=== PATIENT | female | born 1940 | race African-American/Black ===

== ENCOUNTER 2016-08-05 14:58 | Inpatient (IN) | payer MEDICARE ==
[~2016-08-05] VITALS: Ht 160 cm; Wt 76.2 kg
[~2016-08-05 14:58] MED LIST: ACETAMINOPHEN325 M1 ORAL; CELEBREX200 MG ORAL; CLINDAMYCIN HC300 MG ORAL; COLACE100 MG ORAL; DILAUDID1 MG/M1 IVP; DONEPEZIL HCL5 M2 ORAL; DRISDOL50000 UNIT ORAL; Dextrose IV; GLIMEPIRIDE1 MG ORAL; GLIPIZIDE XL5 MG ORAL; GLIPIZIDE5 MG ORAL; LEXAPRO10 MG ORAL; LOVENOX10 MG SUBQ; MEGACE ORA400 MG/10 ORAL; METFORMIN HCL500 M1 ORAL; MULTIVITAMINS1 EA14 PO; NKM; OXYCONTIN10 MG ORAL; PROTONIX40 MG ORAL; Potassium Chloride ORAL; SERTRALINE HCL25 MG ORAL; VITAMIN B650 M1 ORAL; Vancomycin Hcl MISC
[2016-08-05] MEDS ORDERED: GLIMEPIRIDE4 MG ORAL (15:21)
[2016-08-05] MEDS ORDERED: PRINIVIL10 MG ORAL (15:21)
[2016-08-05] MEDS ORDERED: VITAMIN D1000 UNI1 ORAL (15:23)
[2016-08-05 15:30] VITALS: BP 160/76
[2016-08-05 15:50] LABS: APPEARANCE,URINE CLOUDY; KETONES,URINE NEGATIVE (NEGATIVE); LEUKOCYTE ESTERASE ,URINE 3+ (NEGATIVE); NITRITE,URINE NEGATIVE (NEGATIVE); PH,URINE 6 (4.5-8.0); PROTEIN,URINE 4+ (NEGATIVE); UROBILINOGEN,URINE NORMAL MG/DL (0.0-1.0)
[2016-08-05 15:54] LABS: MEAN CORPUSCULAR HEMOGLOBIN 23.2 PG (27.0-31.0); MEAN CORPUSCULAR VOLUME 75 FL (80-99); MEAN PLATELET VOLUME 6.7 FL (6.5-10.1); PLATELET COUNT 270 K/UL (150-450); RED BLOOD COUNT 3.56 M/UL (4.20-5.40); WHITE BLOOD COUNT 11.1 K/UL (4.8-10.8)
[2016-08-05] MEDS ORDERED: Silver Sulfadiazine Cream 25gm TOPIC ONE (16:15)
--- NOTE | 2016-08-05 16:18 | Emergency Room Report ---
History of Present Illness General Chief Complaint: General Complaint Source: Family Member Present Illness HPI Patient is a 76-year-old female who presented after increased skin rash. The patient was noted to have a history of wounds to her leg which she had been peeling of skin off of. The patient had had previously been noted to have some infections to the same area. She had no recent fever. She had history of diabetes. She prior history of anemia. Allergies: Coded Allergies: No Known Allergies (Unverified , 03/28/13) Patient History Now: No Reviewed Nursing Documentation: PMH: Agreed, PSxH: Agreed Nursing Documentation-PMH Past Medical History: No History, Except For Hx Cardiac Problems: Yes - Anemia Hx Hypertension: Yes Hx Diabetes: Yes - type 2 Hx Cancer: No Hx Gastrointestinal Problems: No Hx Neurological Problems: Yes - dementia Hx Dementia: Yes Hx Weakness: Yes Review of Systems All Other Systems: negative except mentioned in HPI Physical Exam Vital Signs Date Time Temp Pulse Resp B/P Pulse Ox O2 Delivery O2 Flow Rate FiO2 08/05/16 15:15 98.2 77 15 158/72 98 Room Air Sp02 EP Interpretation: reviewed, normal General Appearance: normal inspection, well appearing, no apparent distress, alert, GCS 15 Head: atraumatic ENT: normal ENT inspection, hearing grossly normal, normal voice Neck: normal inspection, full range of motion, supple, no bony tend Respiratory: normal inspection, lungs clear, normal breath sounds, no respiratory distress, no retraction, no wheezing Cardiovascular #1: regular rate, rhythm, no edema Gastrointestinal: normal inspection, normal bowel sounds, non tender, soft, no guarding, no hernia Genitourinary: no CVA tenderness Musculoskeletal: normal inspection, back normal, normal range of motion Neurologic: normal inspection, alert, responsive, speech normal Psychiatric: judgement/insight normal, depressed affect Skin: other - right plantar ulcer, and left great toe ulceration Medical Decision Making Diagnostic Impression: Primary Impression: UTI (urinary tract infection) Additional Impressions: Diabetes mellitus Skin avulsion Skin ulcer of plantar aspect of foot ER Course The patient noted to have a elevated white blood count as well as evidence of urinary tract infection. The patient's foot appears to have some ulceration to the left great toe as well as to the plantar aspect of the right foot. These were irrigated well and were dressed with Silvadene cream and dressings. The patient started IV antibiotics. Because the patient's complexity of illness and evidence of infection Dr. Ortiz was contacted for inpatient management. Labs Test 08/05/16 15:28 White Blood Count 11.1 K/UL (4.8-10.8) Red Blood Count 3.56 M/UL (4.20-5.40) Hemoglobin 8.2 G/DL (12.0-16.0) Hematocrit 26.6 % (37.0-47.0) Mean Corpuscular Volume 75 FL (80-99) Mean Corpuscular Hemoglobin 23.2 PG (27.0-31.0) Mean Corpuscular Hemoglobin Concent 31.0 G/DL (32.0-36.0) Red Cell Distribution Width 13.0 % (11.6-14.8) Platelet Count 270 K/UL (150-450) Mean Platelet Volume 6.7 FL (6.5-10.1) Neutrophils (%) (Auto) % (45.0-75.0) Lymphocytes (%) (Auto) % (20.0-45.0) Monocytes (%) (Auto) % (1.0-10.0) Eosinophils (%) (Auto) % (0.0-3.0) Basophils (%) (Auto) % (0.0-2.0) Differential Total Cells Counted 100 Neutrophils % (Manual) 91 % (45-75) Lymphocytes % (Manual) 5 % (20-45) Monocytes % (Manual) 2 % (1-10) Eosinophils % (Manual) 1 % (0-3) Basophils % (Manual) 0 % (0-2) Band Neutrophils 1 % (0-8) Platelet Estimate Adequate Platelet Morphology Normal Hypochromasia 2+ Microcytosis 2+ Schistocytes Occasional Urine Color Pale yellow Urine Appearance Cloudy Urine pH 6 (4.5-8.0) Urine Specific Girard 1.015 (1.005-1.035) Urine Protein 4+ (NEGATIVE) Urine Glucose (UA) Negative (NEGATIVE) Urine Ketones Negative (NEGATIVE) Urine Occult Blood 3+ (NEGATIVE) Urine Nitrite Negative (NEGATIVE) Urine Bilirubin Negative (NEGATIVE) Urine Urobilinogen Normal MG/DL (0.0-1.0) Urine Leukocyte Esterase 3+ (NEGATIVE) Urine RBC 10-15 /HPF (0 - 2) Urine WBC Tntc /HPF (0 - 2) Urine Squamous Epithelial Cells Moderate /LPF (NONE/OCC) Urine Bacteria Many /HPF (NONE) Sodium Level 138 mEQ/L (135-145) Potassium Level 4.4 mEQ/L (3.4-4.9) Chloride Level 99 mEQ/L (98-107) Carbon Dioxide Level 22 mEQ/L (20-30) Anion Gap 17 (5-15) Blood Urea Nitrogen 27 mg/dL (7-23) Creatinine 1.3 mg/dL (0.5-0.9) Estimat Glomerular Filtration Rate mL/min (>60) Glucose Level 233 mg/dL (74-106) Calcium Level 9.4 mg/dL (8.6-10.2) Total Bilirubin 0.4 mg/dL (0.0-1.2) Aspartate Amino Transf (AST/SGOT) 17 U/L (5-40) Alanine Aminotransferase (ALT/SGPT) 15 U/L (3-33) Alkaline Phosphatase 93 U/L (35-104) Total Protein 7.8 g/dL (6.6-8.7) Albumin 3.6 g/dL (3.5-5.2) Globulin 4.2 g/dL Albumin/Globulin Ratio 0.8 (1.0-2.7) Urine Opiates Screen Negative (NEGATIVE) Urine Barbiturates Screen Negative (NEGATIVE) Phencyclidine (PCP) Screen Negative (NEGATIVE) Urine Amphetamines Screen Negative (NEGATIVE) Urine Benzodiazepines Screen Negative (NEGATIVE) Urine Cocaine Screen Negative (NEGATIVE) Urine Marijuana (THC) Screen Negative (NEGATIVE) Last Vital Signs Date Time Temp Pulse Resp B/P Pulse Ox O2 Delivery O2 Flow Rate FiO2 08/05/16 15:30 98.4 78 14 160/76 100 Room Air Status: unchanged Disposition: ADMITTED INPATIENT Condition: Serious Referrals: NOT CHOSEN IPA/,REFERRING (PCP) Darrion Chaidez Aug 05, 2016 16:18
[2016-08-05 16:19] LABS: ALANINE AMINOTRANSFERASE 15 U/L (3-33); ALBUMIN/GLOBULIN RATIO 0.8 (1.0-2.7); ANION GAP 17 (5-15); ASPARTATE AMINO TRANSFERASE 17 U/L (5-40); CALCIUM 9.4 mg/dL (8.6-10.2); CARBON DIOXIDE 22 mEQ/L (20-30); CHLORIDE 99 mEQ/L (98-107); CREATININE 1.3 mg/dL (0.5-0.9); HEMOLYSIS 3; POTASSIUM 4.4 mEQ/L (3.4-4.9); SODIUM 138 mEQ/L (135-145); TOTAL PROTEIN 7.8 g/dL (6.6-8.7)
[2016-08-05] MEDS ORDERED: Hydrogen Peroxide 120ml Bottle TOPIC ONE (16:21)
[2016-08-05 16:22] LABS: BACTERIA,URINE MANY /HPF; SQUAMOUS EPITHELIAL CELL,UR MODERATE /LPF (NONE/OCC); WBC,URINE TNTC /HPF (0 - 2)
[2016-08-05 17:24] VITALS: BP 168/67
[2016-08-05 17:30] LABS: BAND NEUTROPHILS % (MANUAL) 1 % (0-8); EOSINOPHILS % (MANUAL) 1 % (0-3); LYMPHOCYTES % (MANUAL) 5 % (20-45); NEUTROPHILS % (MANUAL) 91 % (45-75); TOTAL CELLS COUNTED 100
[2016-08-05 17:31] LABS: HYPOCHROMASIA 2+; MICROCYTES 2+; SCHISTOCYTES OCCASIONAL
[2016-08-05 17:32] LABS: BASOPHILS % (MANUAL) 0 % (0-2); PLATELET ESTIMATE ADEQUATE; PLATELET MORPHOLOGY NORMAL
[2016-08-05 18:45] VITALS: BP 142/78
[2016-08-05] MEDS ORDERED: Haloperidol 5mg/ml Inj IM PRN (19:30)
[2016-08-05 20:00] VITALS: BP 132/60
[2016-08-05] MEDS ORDERED: Donepezil 5mg Tab ORAL SCH (21:00)
[2016-08-05] MEDS: Heparin 5000 units/ml inj SUBQ SCH (23:47)
[2016-08-05] MEDS: NovoLOG Insulin Flexpen SUBQ SCH (23:48)
[2016-08-06] VITALS: BP 126/68
[2016-08-06 04:00] VITALS: BP 137/65
[2016-08-06] MEDS: GlipiZIDE 5mg tab ORAL SCH ×2 (06:01→12:03)
[2016-08-06] MEDS: NovoLOG Insulin Flexpen SUBQ SCH ×4 (06:01→20:51)
[2016-08-06 06:26] LABS: MEAN CORPUSCULAR HEMOGLOBIN 22.6 PG (27.0-31.0); MEAN CORPUSCULAR HGB CONC 29.8 G/DL (32.0-36.0); MEAN CORPUSCULAR VOLUME 76 FL (80-99); MEAN PLATELET VOLUME 7.2 FL (6.5-10.1); PLATELET COUNT 202 K/UL (150-450); RED BLOOD COUNT 2.96 M/UL (4.20-5.40); RED CELL DISTRIBUTION WIDTH 12.5 % (11.6-14.8); WHITE BLOOD COUNT 7.1 K/UL (4.8-10.8)
[2016-08-06 07:01] LABS: HEMOGLOBIN A1C 7.6 % (< 6.0)
[2016-08-06 07:02] LABS: HEMOLYSIS 0; IRON 20 ug/dL (37-145); TOTAL IRON BINDING CAPACITY 158 ug/dL (250-400)
[2016-08-06 07:13] LABS: ALANINE AMINOTRANSFERASE 12 U/L (3-33); ALBUMIN/GLOBULIN RATIO 0.8 (1.0-2.7); ANION GAP 17 (5-15); ASPARTATE AMINO TRANSFERASE 13 U/L (5-40); CARBON DIOXIDE 20 mEQ/L (20-30); CHLORIDE 102 mEQ/L (98-107); CHOLESTEROL 164 mg/dL (< 200); CHOLESTEROL/HDL RATIO 2.8 (3.3-4.4); CREATININE 1.3 mg/dL (0.5-0.9); CRP QUANT 5.3 mg/dL (< 0.5); LDL CHOLESTEROL (CALC.) 92 mg/dL (60-99); MAGNESIUM 2.1 mg/dL (1.7-2.5); PHOSPHORUS 3.8 mg/dL (2.5-4.8); SODIUM 139 mEQ/L (135-145); TOTAL PROTEIN 6.5 g/dL (6.6-8.7)
[2016-08-06 07:16] LABS: FERRITIN 308 ng/mL (13-150)
[2016-08-06 08:00] VITALS: BP 120/71
[2016-08-06] MEDS ORDERED: Docusate 100mg cap ORAL SCH (09:00)
[2016-08-06] MEDS: Heparin 5000 units/ml inj SUBQ SCH ×2 (09:00→20:52)
[2016-08-06] MEDS ORDERED: Lisinopril 10mg tab ORAL SCH (09:00)
[2016-08-06] MEDS: Docusate 100mg cap ORAL SCH ×3 (09:23→18:22)
[2016-08-06] MEDS: metFORMIN 500mg tab ORAL SCH ×2 (09:23→18:00)
[2016-08-06] MEDS: Sertraline 50mg tab ORAL SCH (09:23)
[2016-08-06] MEDS: Lisinopril 10mg tab ORAL SCH ×2 (09:23→18:22)
[2016-08-06] MEDS: Vitamin D 1000 IU Tab ORAL SCH (09:23)
--- NOTE | 2016-08-06 10:24 | History & Physical ---
History and Physical History & Physicial left fot gangeren uti dm dementia sever anemia # [id number] ADINA GUARDADO Aug 06, 2016 10:24
[2016-08-06 10:54] LABS: ANISOCYTOSIS 1+; BAND NEUTROPHILS % (MANUAL) 0 % (0-8); BASOPHILS % (MANUAL) 0 % (0-2); EOSINOPHILS % (MANUAL) 1 % (0-3); HYPOCHROMASIA 4+; LYMPHOCYTES % (MANUAL) 14 % (20-45); NEUTROPHILS % (MANUAL) 75 % (45-75); PLATELET ESTIMATE ADEQUATE; PLATELET MORPHOLOGY NORMAL; TOTAL CELLS COUNTED 100
--- NOTE | 2016-08-06 11:02 | Consultation ---
Consult Note Assessment/Plan A/ 1) Cellulitis left foot 2) Diabetic foot ulcer left hallux - Stage 2 3) Diabetic foot ulcer right foot - Stage 3 4) Diabetic Neuropathy P/ 1) Cont IV abx as ordered 2) Wound care ordered for bilateral feet 3) X-rays ordered for bilateral feet 4) Cont heel protectors 5) Will follow Thank you Felix Sheets DPM Aug 06, 2016 11:02
[2016-08-06 12:00] VITALS: BP 141/65
--- NOTE | 2016-08-06 15:49 | Diagnostic Imaging Report ---
Indication: Pain Comparison: None Findings: 3 views of the right foot were obtained. No acute fracture is identified. Bones are osteopenic. Hammertoes noted. Soft tissues are unremarkable. Impression: No acute findings
--- NOTE | 2016-08-06 15:50 | Diagnostic Imaging Report ---
Indication: Pain Comparison: None Findings: 3 views of the left foot were obtained. No acute fracture is identified. Bones are osteopenic. No traumatic malalignment seen. Mild hammertoes are present. Impression: No acute injury
[2016-08-06 16:00] VITALS: BP 121/73
[2016-08-06] MEDS ORDERED: 1/2 NS 1000ml IV ONE (16:25)
--- NOTE | 2016-08-06 17:46 | Consultation ---
History of Present Illness General Date patient seen: Aug 06, 2016 Chief Complaint: General Complaint Present Illness HPI The patient is a 76-year-old female, who presented to the emergency room with a wound on her leg and foot and was found to have urinary tract infection and severe anemia. She has been started on slow hydration. Patient hemoglobin and RBC found to be critically low and patient is scheduled for PRBC and IV iron. She also started on ceftriaxone for urinary tract infection. Allergies: Coded Allergies: No Known Allergies (Unverified , 03/28/13) Medication History Scheduled Cholecalciferol (Vitamin D3)* (Vitamin D*), 1,000 UNIT ORAL DAILY, (Reported) Docusate Sodium* (Colace*), 100 MG ORAL BID Docusate Sodium* (Colace*), 100 MG ORAL TID Donepezil Hcl* (Donepezil Hcl*), 5 MG ORAL QHS, (Reported) Donepezil Hcl* (Aricept*), 10 MG ORAL QHS Glimepiride* (Glimepiride*), 1 MG ORAL BEFORE BREAKFAST, (Reported) Glipizide* (Glipizide*), 5 MG ORAL BIDBL Hydralazine HCl (Hydralazine HCl), 50 MG ORAL Q8HR Levofloxacin* (Levaquin*), 250 MG ORAL DAILY Lisinopril* (Prinivil*), 10 MG ORAL DAILY, (Reported) Lisinopril* (Lisinopril*), 20 MG ORAL BID Metformin Hcl* (Metformin Hcl*), 500 MG ORAL TWICE A DAY, (Reported) Metoclopramide Hcl* (Reglan*), 5 MG ORAL BEFORE MEALS Multivitamin (Multivitamins), 1 EACH PO DAILY, (Reported) Pantoprazole* (Protonix*), 40 MG ORAL BID Pyridoxine HCl (Pyridoxine HCl), 50 MG ORAL DAILY Sertraline Hcl* (Sertraline Hcl*), 50 MG ORAL DAILY, (Reported) Scheduled PRN Acetaminophen* (Acetaminophen*), 650 MG ORAL Q6H PRN for For Pain Patient History Healthcare decision maker Resuscitation status Full Code Advanced Directive on File Review of Systems Constitutional: Reports: chills, fever, malaise, sweats, weakness Genitourinary: Reports: dysuria, frequency, hematuria, incontinence, pain, urgency Physical Exam General Appearance: confused, mild distress Lines, tubes and drains: peripheral HEENT: normocephalic, atraumatic, PERRL Neck: non-tender, normal alignment Respiratory/Chest: chest wall non-tender, decreased breath sounds, crackles/ rales, rhonchi - bilaterally Breasts: no masses Cardiovascular/Chest: normal peripheral pulses, normal rate, regular rhythm, no JVD Abdomen: normal bowel sounds, non tender, soft, no organomegaly Extremities: normal range of motion, non-tender, normal inspection Skin Exam: normal pigmentation Neurologic: setter out II-XII grossly normal, responsive, disoriented, depressed affect Last 24 Hour Vital Signs Date Time Temp Pulse Resp B/P Pulse Ox O2 Delivery O2 Flow Rate FiO2 08/06/16 12:00 98.6 69 18 141/65 97 Room Air 08/06/16 09:23 120/71 08/06/16 08:00 98.1 66 18 120/71 96 Room Air 08/06/16 04:00 97.8 68 20 137/65 98 Room Air 08/06/16 00:00 98.0 72 18 126/68 99 Room Air 08/05/16 20:00 98.4 69 18 132/60 98 Room Air 08/05/16 18:45 98.1 85 18 142/78 100 Room Air 08/05/16 18:02 98.1 84 16 168/67 100 Room Air Intake and Output 08/05/16 08/06/16 19:00 07:00 Intake Total 170 ml 380 ml Output Total 150 ml 500 ml Balance 20 ml -120 ml Intake Oral 120 ml 30 ml IV Total 50 ml 350 ml Output Urine Total 150 ml 500 ml Laboratory Tests Test 08/06/16 01:00 08/06/16 05:25 Urine Random Sodium 61 mmol/L White Blood Count 7.1 K/UL (4.8-10.8) Red Blood Count 2.96 M/UL (4.20-5.40) L Hemoglobin 6.7 G/DL (12.0-16.0) *L Hematocrit 22.4 % (37.0-47.0) L Mean Corpuscular Volume 76 FL (80-99) L Mean Corpuscular Hemoglobin 22.6 PG (27.0-31.0) L Mean Corpuscular Hemoglobin Concent 29.8 G/DL (32.0-36.0) L Red Cell Distribution Width 12.5 % (11.6-14.8) Platelet Count 202 K/UL (150-450) Mean Platelet Volume 7.2 FL (6.5-10.1) Neutrophils (%) (Auto) % (45.0-75.0) Lymphocytes (%) (Auto) % (20.0-45.0) Monocytes (%) (Auto) % (1.0-10.0) Eosinophils (%) (Auto) % (0.0-3.0) Basophils (%) (Auto) % (0.0-2.0) Differential Total Cells Counted 100 Neutrophils % (Manual) 75 % (45-75) Lymphocytes % (Manual) 14 % (20-45) L Monocytes % (Manual) 10 % (1-10) Eosinophils % (Manual) 1 % (0-3) Basophils % (Manual) 0 % (0-2) Band Neutrophils 0 % (0-8) Platelet Estimate Adequate Platelet Morphology Normal Hypochromasia 4+ Anisocytosis 1+ Sodium Level 139 mEQ/L (135-145) Potassium Level 4.0 mEQ/L (3.4-4.9) Chloride Level 102 mEQ/L (98-107) Carbon Dioxide Level 20 mEQ/L (20-30) Anion Gap 17 (5-15) H Blood Urea Nitrogen 26 mg/dL (7-23) H Creatinine 1.3 mg/dL (0.5-0.9) H Estimat Glomerular Filtration Rate mL/min (>60) Glucose Level 199 mg/dL (74-106) H Hemoglobin A1c 7.6 % (< 6.0) H Uric Acid 7.0 mg/dL (3.0-7.5) Calcium Level 9.0 mg/dL (8.6-10.2) Phosphorus Level 3.8 mg/dL (2.5-4.8) Magnesium Level 2.1 mg/dL (1.7-2.5) Iron Level 20 ug/dL (37-145) L Total Iron Binding Capacity 158 ug/dL (250-400) L Percent Iron Saturation 13 % (15-50) L Unsaturated Iron Binding 138 ug/dL (112-346) Ferritin 308 ng/mL (13-150) H Total Bilirubin 0.3 mg/dL (0.0-1.2) Gamma Glutamyl Transpeptidase 23 U/L (5-36) Aspartate Amino Transf (AST/SGOT) 13 U/L (5-40) Alanine Aminotransferase (ALT/SGPT) 12 U/L (3-33) Alkaline Phosphatase 81 U/L (35-104) Total Creatine Kinase 115 U/L (26-140) C-Reactive Protein, Quantitative 5.3 mg/dL (< 0.5) H Pro-B-Type Natriuretic Peptide 3688 pg/mL (0-450) H Total Protein 6.5 g/dL (6.6-8.7) L Albumin 2.9 g/dL (3.5-5.2) L Globulin 3.6 g/dL Albumin/Globulin Ratio 0.8 (1.0-2.7) L Triglycerides Level 72 mg/dL (< 150) Cholesterol Level 164 mg/dL (< 200) LDL Cholesterol 92 mg/dL (60-99) HDL Cholesterol 58 mg/dL (> 60) Cholesterol/HDL Ratio 2.8 (3.3-4.4) L Vitamin B12 Level 691 pg/mL (211-946) Folate Pending Thyroid Stimulating Hormone (TSH) 3.330 uIU/mL (0.300-4.500) Height (Feet): 5 Height (Inches): 3.00 Weight (Pounds): 168 Medications Current Medications Medications (Trade) Dose Ordered Sig/Nancy Route PRN Reason Start Time Stop Time Status Last Admin Dose Admin Acetaminophen (Tylenol) 650 mg Q6H PRN ORAL For Pain 08/05/16 19:30 09/04/16 19:29 Ceftriaxone Sodium/Dextrose (Rocephin/D5W 50ml) 50 ml @ 100 mls/hr Q24H IVPB 08/06/16 16:30 08/13/16 16:29 Clonidine HCl (Catapres) 0.1 mg Q4H PRN ORAL bp over 170 syst 08/05/16 19:45 09/04/16 19:44 Dextrose (Dextrose 50%) STAT PRN IV Hypoglycemia 08/05/16 20:15 09/04/16 20:14 Docusate Sodium (Colace) 100 mg TID ORAL 08/06/16 09:00 09/05/16 08:59 08/06/16 12:05 Donepezil HCl (Aricept) 10 mg QHS ORAL 08/06/16 21:00 09/05/16 20:59 Glipizide (Glucotrol) 5 mg BIDBL ORAL 08/06/16 06:30 09/05/16 06:29 08/06/16 12:03 Haloperidol Lactate (Haldol) 2 mg Q4H PRN IM Agitation 08/05/16 19:30 09/04/16 19:29 Heparin Sodium (Porcine) (Heparin 5000 units/ml) 5,000 units EVERY 12 HOURS SUBQ 08/05/16 21:00 09/04/16 20:59 08/05/16 23:47 Insulin Aspart (NovoLOG) BEFORE MEALS AND HS SUBQ 08/05/16 21:00 09/04/16 20:59 08/06/16 17:00 Lisinopril (Zestril) 10 mg BID ORAL 08/06/16 09:00 09/05/16 08:59 08/06/16 09:23 Metformin HCl (Glucophage) 500 mg BID ORAL 08/06/16 09:00 09/05/16 08:59 08/06/16 09:23 Pantoprazole (Protonix) 40 mg BID ORAL 08/06/16 09:00 09/05/16 08:59 08/06/16 09:23 Sertraline HCl 50 mg 50 mg DAILY ORAL 08/06/16 09:00 09/05/16 08:59 08/06/16 09:23 Sodium Chloride 1,000 ml @ 50 mls/hr Q20H IV 08/05/16 19:30 09/04/16 19:29 08/05/16 23:46 Vitamin D (Vitamin D) 2,000 intlu DAILY ORAL 08/06/16 09:00 09/05/16 08:59 08/06/16 09:23 Assessment/Plan Status: stable, progressing Assessment/Plan Assessment Urinary tract infection, Left foot gangrene, Dementia, Diabetes mellitus Severe anemia Mild CHF Plan Broad Spectrum Antbx Septic workup Pain management Follow up with Cx report IV hydration JAIRO Cage Aug 06, 2016 17:46
[2016-08-06] MEDS: cefTRIAXone 1 GM in D5W 50 ML IVPB SCH (18:22)
[2016-08-06 20:00] VITALS: BP 177/70
[2016-08-06] MEDS: Donepezil 5mg Tab ORAL SCH (20:50)
--- NOTE | 2016-08-06 21:37 | History and Physical Report ---
DATE OF ADMISSION: 08/05/2016 HISTORY OF PRESENT ILLNESS: The patient is a 76-year-old female who presents to our emergency room with wound on her leg and foot that she has been peeling and also was found to have urinary tract infection and severe anemia. The patient is being admitted with a diagnosis of left foot gangrene, UTI and severe anemia. PAST MEDICAL HISTORY: Significant for diabetes mellitus, dementia, anemia, gastroesophageal reflux disease, and peripheral vascular disease. PHYSICAL EXAMINATION: GENERAL: The patient is forgetful, poor historian. VITAL SIGNS: Temperature 98.1 degrees, pulse rate 66, respiratory rate 18, and blood pressure 120/71. HEENT: Face is pale. Sclerae is not icteric. Head is normocephalic. BREASTS: Atrophic. LUNGS: Clear. HEART: Regular. ABDOMEN: Soft. EXTREMITIES: Scar over the left hip of the previous surgery. Lower extremity on the left side, there is evidence of a blackish coloration and gangrene on the back side of the foot. Please refer to the pictures and did note of the wound care nurse on the record. CENTRAL NERVOUS SYSTEM: The patient moves all extremities. LABORATORY AND DIAGNOSTIC DATA: Laboratory results, the hemoglobin on admission was 8.2, today 6.7 and white BCs 11.1 and today 7.1. The creatinine is 1.3. Glucose 199. Iron panel shows iron deficiency. B12, folate, and TSH normal. IMPRESSION: The patient has urinary tract infection, left foot gangrene, dementia, diabetes mellitus and severe anemia. PLAN: The patient is on antibiotic and is due for podiatry evaluation. Also the patient will receive one unit of blood transfusion, iron supplements, slow hydration, blood sugar control and according to how the patient's condition evolves, we will make appropriate changes in our future management. Mohsen Ortiz M.D. DR: LUDMILA JOB#: [id number] CC:
[2016-08-07] VITALS: BP 137/62
[2016-08-07] MEDS: Metoclopramide 10mg/2ml Inj IVP PRN (00:02)
[2016-08-07 04:00] VITALS: BP 151/69
[2016-08-07] MEDS: NovoLOG Insulin Flexpen SUBQ SCH ×4 (06:03→21:38)
[2016-08-07] MEDS: GlipiZIDE 5mg tab ORAL SCH ×2 (06:04→12:35)
[2016-08-07 07:35] LABS: MEAN CORPUSCULAR HEMOGLOBIN 23.8 PG (27.0-31.0); MEAN CORPUSCULAR HGB CONC 30.3 G/DL (32.0-36.0); MEAN CORPUSCULAR VOLUME 78 FL (80-99); MEAN PLATELET VOLUME 7.4 FL (6.5-10.1); PLATELET COUNT 261 K/UL (150-450); RED BLOOD COUNT 3.85 M/UL (4.20-5.40); RED CELL DISTRIBUTION WIDTH 13.9 % (11.6-14.8); WHITE BLOOD COUNT 10.6 K/UL (4.8-10.8)
[2016-08-07 08:00] VITALS: BP 166/80
[2016-08-07 08:04] LABS: INR 1.1 (0.9-1.1); PROTHROMBIN TIME 10.9 SEC (9.30-11.50)
[2016-08-07 09:00] LABS: ANISOCYTOSIS 1+; BAND NEUTROPHILS % (MANUAL) 0 % (0-8); BASOPHILS % (MANUAL) 0 % (0-2); EOSINOPHILS % (MANUAL) 0 % (0-3); HYPOCHROMASIA 1+; LYMPHOCYTES % (MANUAL) 3 % (20-45); NEUTROPHILS % (MANUAL) 89 % (45-75); PLATELET ESTIMATE ADEQUATE; PLATELET MORPHOLOGY NORMAL; TOTAL CELLS COUNTED 100
[2016-08-07] MEDS: Heparin 5000 units/ml inj SUBQ SCH ×2 (09:00→21:42)
[2016-08-07] MEDS: Sertraline 50mg tab ORAL SCH (09:09)
[2016-08-07] MEDS: Vitamin D 1000 IU Tab ORAL SCH (09:09)
[2016-08-07] MEDS: metFORMIN 500mg tab ORAL SCH ×2 (09:09→17:53)
[2016-08-07] MEDS: Docusate 100mg cap ORAL SCH ×3 (09:09→17:53)
[2016-08-07] MEDS: Lisinopril 10mg tab ORAL SCH ×2 (09:09→17:54)
[2016-08-07 09:19] LABS: ERYTHROCYTE SEDIMENTATION RATE 78 MM/HR (0-30); PATH BLOOD SMEAR/OMC SENT TO PATHOLOGIST
--- NOTE | 2016-08-07 10:38 | General Progress Note ---
Assessment/Plan Status: unchanged Assessment/Plan Status: - urinary tract infection, -left foot gangrene, -dementia, -diabetes mellitus and -severe anemia. Podiatry Impresion: 1) Cellulitis left foot 2) Diabetic foot ulcer left hallux - Stage 2 3) Diabetic foot ulcer right foot - Stage 3 4) Diabetic Neuropathy Plan: Ceftriaxone- Transfused- IV Iron- Fot care- S eval Subjective ROS Limited/Unobtainable: No Constitutional: Reports: malaise, weakness Allergies: Coded Allergies: No Known Allergies (Unverified , 03/28/13) Objective Last 24 Hour Vital Signs Date Time Temp Pulse Resp B/P Pulse Ox O2 Delivery O2 Flow Rate FiO2 08/07/16 09:09 166/80 08/07/16 09:09 166/90 08/07/16 08:00 97.7 71 18 166/80 95 Room Air 08/07/16 04:00 97.7 71 20 151/69 95 Room Air 08/07/16 00:00 97.9 66 20 137/62 96 Room Air 08/06/16 21:33 168/74 08/06/16 20:00 98.1 76 20 177/70 96 Room Air 08/06/16 18:22 121/73 08/06/16 16:00 98.2 94 20 121/73 97 Room Air 08/06/16 12:00 98.6 69 18 141/65 97 Room Air Intake and Output 08/06/16 08/07/16 19:00 07:00 Intake Total 100 ml 350 ml Output Total 875 ml Balance 100 ml -525 ml Intake Oral 100 ml IV Total 350 ml Output Urine Total 875 ml Laboratory Tests 08/07/16 06:10: White Blood Count 10.6, Red Blood Count 3.85L, Hemoglobin 9.2#L, Hematocrit 30.2 #L, Mean Corpuscular Volume 78L, Mean Corpuscular Hemoglobin 23.8L, Mean Corpuscular Hemoglobin Concent 30.3L, Red Cell Distribution Width 13.9, Platelet Count 261, Mean Platelet Volume 7.4, Neutrophils (%) (Auto) , Lymphocytes (%) (Auto) , Monocytes (%) (Auto) , Eosinophils (%) (Auto) , Basophils (%) (Auto) , Differential Total Cells Counted 100, Neutrophils % ( Manual) 89H, Lymphocytes % (Manual) 3L, Monocytes % (Manual) 8, Eosinophils % ( Manual) 0, Basophils % (Manual) 0, Band Neutrophils 0, Platelet Estimate Adequate, Platelet Morphology Normal, Hypochromasia 1+, Anisocytosis 1+, Erythrocyte Sedimentation Rate 78H, Reticulocyte Count [Pending], Prothrombin Time 10.9, Prothromb Time International Ratio 1.1, Activated Partial Thromboplast Time 28, Lactate Dehydrogenase 335H, Carcinoembryonic Antigen 1.8 Height (Feet): 5 Height (Inches): 3.00 Weight (Pounds): 168 General Appearance: no apparent distress Cardiovascular: regular rhythm Respiratory/Chest: lungs clear Abdomen: soft Objective PE otherwise not changed ADINA GUARDADO Aug 07, 2016 10:38
--- NOTE | 2016-08-07 11:34 | Diagnostic Imaging Report ---
Indications: DYSPNEA Technique: Portable AP chest Findings: Comparison: 04/16/2016 Cardiac silhouette remains normal in size. Pulmonary vascular redistribution, bilateral interstitial infiltrates, left pleural effusion have developed. IMPRESSION: Development of mild bilateral congestive change
[2016-08-07 12:00] VITALS: BP 154/79
[2016-08-07] MEDS: HydrALAZINE 10mg Tab ORAL SCH ×2 (14:38→21:44)
--- NOTE | 2016-08-07 15:17 | Podiatric Progress Note ---
Assessment/Plan Patient Tanya Padilla is a 76 year old female who was admitted on Aug 05, 2016 at 16:35 with Problems: Assessment/Plan A/ 1) Cellulitis left foot 2) Diabetic foot ulcer left hallux - Stage 2 3) Diabetic foot ulcer right foot - Stage 3 4) Diabetic Neuropathy P/ 1) Cont IV abx as ordered 2) Cont wound care as ordered for bilateral feet 3) X-rays bilateral feet reviewed. ESR and CRP elevated, Bone scan to evaluate for osteo 4) Cont heel protectors 5) Will follow Subjective Procedure Performed Patient denies pain in feet. Patient is comfortable Allergies: Coded Allergies: No Known Allergies (Unverified , 03/28/13) Objective Exam Last 24 Hour Vital Signs Date Time Temp Pulse Resp B/P Pulse Ox O2 Delivery O2 Flow Rate FiO2 08/07/16 14:38 154/79 08/07/16 12:00 97.0 66 18 154/79 96 Room Air 08/07/16 09:09 166/80 08/07/16 09:09 166/90 08/07/16 08:00 97.7 71 18 166/80 95 Room Air 08/07/16 04:00 97.7 71 20 151/69 95 Room Air 08/07/16 00:00 97.9 66 20 137/62 96 Room Air 08/06/16 21:33 168/74 08/06/16 20:00 98.1 76 20 177/70 96 Room Air 08/06/16 18:22 121/73 08/06/16 16:00 98.2 94 20 121/73 97 Room Air Laboratory Tests Test 08/07/16 06:10 White Blood Count 10.6 K/UL (4.8-10.8) Red Blood Count 3.85 M/UL (4.20-5.40) L Hemoglobin 9.2 G/DL (12.0-16.0) #L Hematocrit 30.2 % (37.0-47.0) #L Mean Corpuscular Volume 78 FL (80-99) L Mean Corpuscular Hemoglobin 23.8 PG (27.0-31.0) L Mean Corpuscular Hemoglobin Concent 30.3 G/DL (32.0-36.0) L Red Cell Distribution Width 13.9 % (11.6-14.8) Platelet Count 261 K/UL (150-450) Mean Platelet Volume 7.4 FL (6.5-10.1) Neutrophils (%) (Auto) % (45.0-75.0) Lymphocytes (%) (Auto) % (20.0-45.0) Monocytes (%) (Auto) % (1.0-10.0) Eosinophils (%) (Auto) % (0.0-3.0) Basophils (%) (Auto) % (0.0-2.0) Differential Total Cells Counted 100 Neutrophils % (Manual) 89 % (45-75) H Lymphocytes % (Manual) 3 % (20-45) L Monocytes % (Manual) 8 % (1-10) Eosinophils % (Manual) 0 % (0-3) Basophils % (Manual) 0 % (0-2) Band Neutrophils 0 % (0-8) Platelet Estimate Adequate Platelet Morphology Normal Hypochromasia 1+ Anisocytosis 1+ Erythrocyte Sedimentation Rate 78 MM/HR (0-30) H Reticulocyte Count 1.0 % (0.0-2.0) Prothrombin Time 10.9 SEC (9.30-11.50) Prothromb Time International Ratio 1.1 (0.9-1.1) Activated Partial Thromboplast Time 28 SEC (23-33) Lactate Dehydrogenase 335 U/L (135-230) H Carcinoembryonic Antigen 1.8 ng/mL Microbiology Date/Time Source Procedure Growth Status 08/05/16 16:45 Blood Blood Culture - Preliminary NO GROWTH AFTER 24 HOURS Resulted 08/05/16 15:28 Urine,Clean Catch Urine Culture - Final Klebsiella Pneumoniae Complete Felix Daniels DPM Aug 07, 2016 15:17
[2016-08-07 16:00] VITALS: BP 124/61
[2016-08-07] MEDS: cefTRIAXone 1 GM in D5W 50 ML IVPB SCH (17:12)
--- NOTE | 2016-08-07 18:31 | Pulmonology Progress Note ---
Assessment/Plan Assessment/Plan Assessment/Plan Status: stable, progressing Assessment/Plan Assessment Urinary tract infection, Left foot gangrene, Dementia, Diabetes mellitus Severe anemia Mild CHF Plan Broad Spectrum Antbx Septic workup Pain management Follow up with Cx report IV hydration gentle Subjective ROS Limited/Unobtainable: Yes Constitutional: Reports: anorexia, fatigue Gastrointestinal/Abdominal: Reports: bloating, nausea Genitourinary: Reports: dysuria, frequency, hematuria, urgency Neurologic: Reports: confusion, weakness Allergies: Coded Allergies: No Known Allergies (Unverified , 03/28/13) Objective Last 24 Hour Vital Signs Date Time Temp Pulse Resp B/P Pulse Ox O2 Delivery O2 Flow Rate FiO2 08/07/16 17:54 124/61 08/07/16 16:00 97.9 62 20 124/61 97 Room Air 08/07/16 14:38 154/79 08/07/16 12:00 97.0 66 18 154/79 96 Room Air 08/07/16 09:09 166/80 08/07/16 09:09 166/90 08/07/16 08:00 97.7 71 18 166/80 95 Room Air 08/07/16 04:00 97.7 71 20 151/69 95 Room Air 08/07/16 00:00 97.9 66 20 137/62 96 Room Air 08/06/16 21:33 168/74 08/06/16 20:00 98.1 76 20 177/70 96 Room Air Intake and Output 08/06/16 08/07/16 19:00 07:00 Intake Total 100 ml 350 ml Output Total 875 ml Balance 100 ml -525 ml Intake Oral 100 ml IV Total 350 ml Output Urine Total 875 ml General Appearance: no acute distress HEENT: normocephalic, atraumatic, anicteric, PERRL Respiratory/Chest: chest wall non-tender, decreased breath sounds, accessory muscle use Breasts: no masses Cardiovascular: normal peripheral pulses, normal rate, regular rhythm, no JVD Abdomen: normal bowel sounds, soft, non tender, no organomegaly Genitourinary: normal external genitalia Extremities: no cyanosis Skin: lesions 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, responsive, disoriented, aphasia Microbiology Date/Time Source Procedure Growth Status 08/05/16 16:45 Blood Blood Culture - Preliminary NO GROWTH AFTER 24 HOURS Resulted 08/05/16 16:30 Blood Blood Culture - Preliminary NO GROWTH AFTER 24 HOURS Resulted 08/05/16 15:28 Urine,Clean Catch Urine Culture - Final Klebsiella Pneumoniae Complete Laboratory Tests 08/07/16 06:10: White Blood Count 10.6, Red Blood Count 3.85L, Hemoglobin 9.2#L, Hematocrit 30.2 #L, Mean Corpuscular Volume 78L, Mean Corpuscular Hemoglobin 23.8L, Mean Corpuscular Hemoglobin Concent 30.3L, Red Cell Distribution Width 13.9, Platelet Count 261, Mean Platelet Volume 7.4, Neutrophils (%) (Auto) , Lymphocytes (%) (Auto) , Monocytes (%) (Auto) , Eosinophils (%) (Auto) , Basophils (%) (Auto) , Differential Total Cells Counted 100, Neutrophils % ( Manual) 89H, Lymphocytes % (Manual) 3L, Monocytes % (Manual) 8, Eosinophils % ( Manual) 0, Basophils % (Manual) 0, Band Neutrophils 0, Platelet Estimate Adequate, Platelet Morphology Normal, Hypochromasia 1+, Anisocytosis 1+, Erythrocyte Sedimentation Rate 78H, Reticulocyte Count 1.0, Prothrombin Time 10.9, Prothromb Time International Ratio 1.1, Activated Partial Thromboplast Time 28, Lactate Dehydrogenase 335H, Carcinoembryonic Antigen 1.8 Current Medications Medications (Trade) Dose Ordered Sig/Nancy Route PRN Reason Start Time Stop Time Status Last Admin Dose Admin Acetaminophen (Tylenol) 650 mg Q6H PRN ORAL For Pain 08/05/16 19:30 09/04/16 19:29 Ceftriaxone Sodium/Dextrose (Rocephin/D5W 50ml) 50 ml @ 100 mls/hr Q24H IVPB 08/06/16 16:30 08/13/16 16:29 08/07/16 17:12 Clonidine HCl (Catapres) 0.1 mg Q4H PRN ORAL bp over 170 syst 08/05/16 19:45 09/04/16 19:44 08/07/16 09:09 Dextrose (Dextrose 50%) STAT PRN IV Hypoglycemia 08/05/16 20:15 09/04/16 20:14 Docusate Sodium (Colace) 100 mg TID ORAL 08/06/16 09:00 09/05/16 08:59 08/07/16 17:53 Donepezil HCl (Aricept) 10 mg QHS ORAL 08/06/16 21:00 09/05/16 20:59 08/06/16 20:50 Glipizide (Glucotrol) 5 mg BIDBL ORAL 08/06/16 06:30 09/05/16 06:29 08/07/16 12:35 Haloperidol Lactate (Haldol) 2 mg Q4H PRN IM Agitation 08/05/16 19:30 09/04/16 19:29 Heparin Sodium (Porcine) (Heparin 5000 units/ml) 5,000 units EVERY 12 HOURS SUBQ 08/05/16 21:00 09/04/16 20:59 08/06/16 20:52 Hydralazine HCl 10 mg 10 mg Q8HR ORAL 08/07/16 14:00 09/06/16 13:59 08/07/16 14:38 Insulin Aspart (NovoLOG) BEFORE MEALS AND HS SUBQ 08/05/16 21:00 09/04/16 20:59 08/07/16 16:25 Iron Sucrose/ Sodium Chloride (Venofer/Sodium Chloride 100ml bag) 105 ml @ 381.818 mls/hr BEDTIME IVPB 08/07/16 21:00 08/16/16 21:17 Lisinopril (Zestril) 20 mg BID ORAL 08/07/16 18:00 09/06/16 17:59 08/07/16 17:54 Metformin HCl (Glucophage) 500 mg BID ORAL 08/06/16 09:00 09/05/16 08:59 08/07/16 17:53 Metoclopramide HCl (Reglan) 5 mg BEFORE MEALS ORAL 08/07/16 12:30 09/06/16 12:29 08/07/16 16:24 Metoclopramide HCl (Reglan) 10 mg Q6H PRN IVP Nausea & Vomiting 08/06/16 23:30 09/05/16 23:29 08/07/16 00:02 Pantoprazole (Protonix) 40 mg BID ORAL 08/06/16 09:00 09/05/16 08:59 08/07/16 17:53 Sertraline HCl 50 mg 50 mg DAILY ORAL 08/06/16 09:00 09/05/16 08:59 08/07/16 09:09 Sodium Chloride 1,000 ml @ 50 mls/hr Q20H IV 08/05/16 19:30 09/04/16 19:29 08/06/16 18:21 Vitamin D (Vitamin D) 2,000 intlu DAILY ORAL 08/06/16 09:00 09/05/16 08:59 08/07/16 09:09 AJIRO DELEON Aug 07, 2016 18:31
[2016-08-07 19:00] VITALS: BP 159/71
--- NOTE | 2016-08-07 21:07 | Consultation ---
DATE OF CONSULTATION: 08/06/2016 CONSULTING PHYSICIAN: Felix Daniels D.P.M. REQUESTING PHYSICIAN: Mohsen Ortiz M.D. REASON FOR CONSULTATION: Diabetic foot ulcer with cellulitis. HISTORY OF PRESENT ILLNESS: The patient is a 76-year-old female, who was admitted to [facility] on 08/05/2016 for urinary tract infection. The patient is confused and altered and is unable to adequately respond to questioning. History was obtained through chart review. PAST MEDICAL HISTORY: Past medical history is significant for diabetes mellitus, dementia, anemia, gastroesophageal reflux disease, and peripheral vascular disease. PAST SURGICAL HISTORY: Unknown. MEDICATIONS: Per SEP. ALLERGIES: She has no known drug allergies. SOCIAL HISTORY: Noncontributory. FAMILY HISTORY: Noncontributory. REVIEW OF SYSTEMS: Difficult to ascertain as the patient does not directly answer questioning. PHYSICAL EXAMINATION: VITAL SIGNS: Temperature is 98.1 degrees, pulse 66, respiration rate is 18, blood pressure is 120/71, and pulse oximetry is 96% on room air. EXTREMITIES: Lower extremity physical exam, vascular, palpable pedal pulses noted bilaterally. Feet are equally warm. There is no edema or cyanosis noted. DERMATOLOGICAL: There is partial-thickness ulceration noted on the left hallux. Areas are erythematous and edematous. There is no malodor noted. There is a small amount of serous drainage from the site. No pain upon palpation. There is also a full-thickness ulceration noted on the plantar aspect of the right foot. No bone or tendon is exposed. The area is dry. Periwound skin is unremarkable. No drainage is noted from the site. Again, no bone or tendon is exposed there. Remaining dermatological exam is unremarkable. NEUROLOGICAL: Protective threshold diminished. Achilles deep tendon reflexes 2+ bilateral. MUSCULOSKELETAL: There is no gross deformities noted. A 4/5 muscle strength is noted anterolateral and posterior muscle groups of bilateral lower extremities. IMAGING: No lower extremity imaging is noted yet. LABORATORY DATA: Glucose is 199. Hemoglobin A1c is 7.6. Albumin is 2.9. C-reactive protein is 5.3. White blood cell count is 7.1, hemoglobin is 6.7, hematocrit of 22.4, and platelet count is 202,000. ASSESSMENT: 1. Cellulitis left foot. 2. Diabetic foot ulcer, left hallux, stage II. 3. Diabetic foot ulcer, right foot, stage III. 4. Diabetic neuropathy. PLAN: 1. Continue IV antibiotics as ordered. 2. Wound care ordered for bilateral feet. 3. X-rays ordered for bilateral feet. 4. Continue heel protectors. 5. We will follow. Thank you for the courtesy of this consultation, Dr. Ortiz. Felix Daniels D.P.M. DR: ANTONINO JOB#: [id number] CC:
[2016-08-07] MEDS: Donepezil 5mg Tab ORAL SCH (21:44)
[2016-08-08 00:15] VITALS: BP 162/69
[2016-08-08 04:16] VITALS: BP 159/94
[2016-08-08] MEDS: GlipiZIDE 5mg tab ORAL SCH ×2 (05:50→12:15)
[2016-08-08] MEDS: HydrALAZINE 10mg Tab ORAL SCH ×3 (05:50→22:00)
[2016-08-08] MEDS: NovoLOG Insulin Flexpen SUBQ SCH ×4 (05:52→20:39)
[2016-08-08 06:57] LABS: BASOPHILS % (AUTO) 0.4 % (0.0-2.0); EOSINOPHILS % (AUTO) 0.3 % (0.0-3.0); LYMPHOCYTES % (AUTO) 11.5 % (20.0-45.0); MEAN CORPUSCULAR HEMOGLOBIN 23.9 PG (27.0-31.0); MEAN CORPUSCULAR HGB CONC 30.3 G/DL (32.0-36.0); MEAN CORPUSCULAR VOLUME 79 FL (80-99); MEAN PLATELET VOLUME 7.2 FL (6.5-10.1); NEUTROPHILS % (AUTO) 78.9 % (45.0-75.0); PLATELET COUNT 254 K/UL (150-450); RED BLOOD COUNT 3.58 M/UL (4.20-5.40); RED CELL DISTRIBUTION WIDTH 14.2 % (11.6-14.8); WHITE BLOOD COUNT 8.1 K/UL (4.8-10.8)
[2016-08-08 08:00] VITALS: BP 155/71
[2016-08-08 08:19] LABS: ALANINE AMINOTRANSFERASE 9 U/L (3-33); ALBUMIN/GLOBULIN RATIO 0.8 (1.0-2.7); ANION GAP 16 (5-15); ASPARTATE AMINO TRANSFERASE 12 U/L (5-40); CALCIUM 8.9 mg/dL (8.6-10.2); CARBON DIOXIDE 21 mEQ/L (20-30); CHLORIDE 102 mEQ/L (98-107); CREATININE 1.4 mg/dL (0.5-0.9); CRP QUANT 2.3 mg/dL (< 0.5); HEMOLYSIS 3; MAGNESIUM 2.1 mg/dL (1.7-2.5); POTASSIUM 3.9 mEQ/L (3.4-4.9); SODIUM 139 mEQ/L (135-145); TOTAL PROTEIN 6.5 g/dL (6.6-8.7); URIC ACID 7.1 mg/dL (3.0-7.5)
[2016-08-08] MEDS: Heparin 5000 units/ml inj SUBQ SCH ×2 (09:00→20:39)
[2016-08-08] MEDS: metFORMIN 500mg tab ORAL SCH ×2 (09:00→17:30)
[2016-08-08] MEDS: Vitamin D 1000 IU Tab ORAL SCH (10:05)
[2016-08-08] MEDS: Lisinopril 10mg tab ORAL SCH ×2 (10:05→17:33)
[2016-08-08] MEDS: Docusate 100mg cap ORAL SCH ×3 (10:05→17:30)
[2016-08-08] MEDS: Sertraline 50mg tab ORAL SCH (10:06)
[2016-08-08 12:00] VITALS: BP 182/89
--- NOTE | 2016-08-08 13:39 | General Progress Note ---
Assessment/Plan Status: stable Assessment/Plan Status: - urinary tract infection, -left foot gangrene, -dementia, -diabetes mellitus and -severe anemia. Podiatry Impresion: 1) Cellulitis left foot 2) Diabetic foot ulcer left hallux - Stage 2 3) Diabetic foot ulcer right foot - Stage 3 4) Diabetic Neuropathy Plan: Ceftriaxone- Transfused- IV Iron- Fot care- ST eval DC IV fluid- Bone scan- Placement?? Subjective ROS Limited/Unobtainable: No Constitutional: Reports: malaise, weakness Allergies: Coded Allergies: No Known Allergies (Unverified , 03/28/13) Objective Last 24 Hour Vital Signs Date Time Temp Pulse Resp B/P Pulse Ox O2 Delivery O2 Flow Rate FiO2 08/08/16 10:05 156/71 08/08/16 08:00 98.2 66 16 155/71 98 Room Air 08/08/16 05:50 159/94 08/08/16 04:16 97.7 89 20 159/94 96 Room Air 08/08/16 00:15 97.0 69 20 162/69 98 Room Air 08/07/16 21:44 159/71 08/07/16 19:00 97.9 78 20 159/71 96 Room Air 08/07/16 17:54 124/61 08/07/16 16:00 97.9 62 20 124/61 97 Room Air 08/07/16 14:38 154/79 Intake and Output 08/07/16 08/08/16 18:59 06:59 Intake Total 390 ml 700 ml Output Total 400 ml 750 ml Balance -10 ml -50 ml Intake Oral 240 ml 120 ml IV Total 150 ml 580 ml Output Urine Total 400 ml 750 ml Laboratory Tests 08/08/16 05:50: White Blood Count 8.1, Red Blood Count 3.58L, Hemoglobin 8.5L, Hematocrit 28.2L , Mean Corpuscular Volume 79L, Mean Corpuscular Hemoglobin 23.9L, Mean Corpuscular Hemoglobin Concent 30.3L, Red Cell Distribution Width 14.2, Platelet Count 254, Mean Platelet Volume 7.2, Neutrophils (%) (Auto) 78.9H, Lymphocytes (%) (Auto) 11.5L, Monocytes (%) (Auto) 9.0, Eosinophils (%) (Auto) 0.3, Basophils (%) (Auto) 0.4, Sodium Level 139, Potassium Level 3.9, Chloride Level 102, Carbon Dioxide Level 21, Anion Gap 16H, Blood Urea Nitrogen 26H, Creatinine 1.4H, Estimat Glomerular Filtration Rate , Glucose Level 184H, Uric Acid 7.1, Calcium Level 8.9, Phosphorus Level 3.0, Magnesium Level 2.1, Total Bilirubin 0.2, Gamma Glutamyl Transpeptidase 30, Aspartate Amino Transf (AST/ SGOT) 12, Alanine Aminotransferase (ALT/SGPT) 9, Alkaline Phosphatase 90, Total Creatine Kinase 53, C-Reactive Protein, Quantitative 2.3H, Pro-B-Type Natriuretic Peptide 3645H, Total Protein 6.5L, Albumin 2.9L, Globulin 3.6, Albumin/Globulin Ratio 0.8L Height (Feet): 5 Height (Inches): 3.00 Weight (Pounds): 168 General Appearance: no apparent distress Cardiovascular: normal rate Respiratory/Chest: lungs clear, decreased breath sounds Abdomen: soft Extremities: other - no change Objective PE otherwise not changed ADINA GUARDADO Aug 08, 2016 13:39
[2016-08-08] MEDS: Metoclopramide 10mg/2ml Inj IVP PRN (13:51)
[2016-08-08 16:00] VITALS: BP 99/52
[2016-08-08] MEDS: cefTRIAXone 1 GM in D5W 50 ML IVPB SCH (17:23)
[2016-08-08] MEDS ORDERED: Tubing Blood Filter IV ONE (18:27)
[2016-08-08] MEDS ORDERED: NS 275ml ONE (18:27)
[2016-08-08] MEDS ORDERED: Tubing IV Secondary IV ONE (18:27)
[2016-08-08] MEDS ORDERED: 1/2 NS 1000ml IV ONE (18:27)
--- NOTE | 2016-08-08 19:08 | Pulmonology Progress Note ---
Assessment/Plan Assessment/Plan Assessment/Plan Status: stable, progressing Assessment/Plan Assessment Urinary tract infection, Left foot gangrene, Dementia, Diabetes mellitus Severe anemia Mild CHF Plan Broad Spectrum Antbx Septic workup Pain management Follow up with Cx report IV hydration gentle Subjective ROS Limited/Unobtainable: No Constitutional: Reports: anorexia, chills, fatigue, fever Neurologic: Reports: weakness Psychiatric: Reports: anxiety Musculoskeletal: Reports: pain, stiffness, swelling Allergies: Coded Allergies: No Known Allergies (Unverified , 03/28/13) Objective Last 24 Hour Vital Signs Date Time Temp Pulse Resp B/P Pulse Ox O2 Delivery O2 Flow Rate FiO2 08/08/16 17:33 99/52 08/08/16 16:00 98.2 65 18 99/52 98 Room Air 08/08/16 15:02 188/92 08/08/16 13:51 188/92 08/08/16 12:00 98.4 75 20 182/89 98 Room Air 08/08/16 10:05 156/71 08/08/16 08:00 98.2 66 16 155/71 98 Room Air 08/08/16 05:50 159/94 08/08/16 04:16 97.7 89 20 159/94 96 Room Air 08/08/16 00:15 97.0 69 20 162/69 98 Room Air 08/07/16 21:44 159/71 Intake and Output 08/07/16 08/08/16 19:00 07:00 Intake Total 340 ml 750 ml Output Total 400 ml 750 ml Balance -60 ml 0 ml Intake Oral 240 ml 120 ml IV Total 100 ml 630 ml Output Urine Total 400 ml 750 ml General Appearance: no acute distress HEENT: normocephalic, atraumatic, PERRL Respiratory/Chest: chest wall non-tender, normal breath sounds, no respiratory distress Breasts: no masses Cardiovascular: normal peripheral pulses, normal rate, regular rhythm, no JVD Abdomen: normal bowel sounds, soft, non tender, no organomegaly Genitourinary: normal external genitalia Extremities: no cyanosis Skin: rash, lesions, ulcers, other - leeft lower extremity with gangrenous changes 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, no motor/sensory deficits Laboratory Tests 08/08/16 05:50: White Blood Count 8.1, Red Blood Count 3.58L, Hemoglobin 8.5L, Hematocrit 28.2L , Mean Corpuscular Volume 79L, Mean Corpuscular Hemoglobin 23.9L, Mean Corpuscular Hemoglobin Concent 30.3L, Red Cell Distribution Width 14.2, Platelet Count 254, Mean Platelet Volume 7.2, Neutrophils (%) (Auto) 78.9H, Lymphocytes (%) (Auto) 11.5L, Monocytes (%) (Auto) 9.0, Eosinophils (%) (Auto) 0.3, Basophils (%) (Auto) 0.4, Sodium Level 139, Potassium Level 3.9, Chloride Level 102, Carbon Dioxide Level 21, Anion Gap 16H, Blood Urea Nitrogen 26H, Creatinine 1.4H, Estimat Glomerular Filtration Rate , Glucose Level 184H, Uric Acid 7.1, Calcium Level 8.9, Phosphorus Level 3.0, Magnesium Level 2.1, Total Bilirubin 0.2, Gamma Glutamyl Transpeptidase 30, Aspartate Amino Transf (AST/ SGOT) 12, Alanine Aminotransferase (ALT/SGPT) 9, Alkaline Phosphatase 90, Total Creatine Kinase 53, C-Reactive Protein, Quantitative 2.3H, Pro-B-Type Natriuretic Peptide 3645H, Total Protein 6.5L, Albumin 2.9L, Globulin 3.6, Albumin/Globulin Ratio 0.8L Current Medications Medications (Trade) Dose Ordered Sig/Nancy Route PRN Reason Start Time Stop Time Status Last Admin Dose Admin Acetaminophen (Tylenol) 650 mg Q6H PRN ORAL For Pain 08/05/16 19:30 09/04/16 19:29 Ceftriaxone Sodium/Dextrose (Rocephin/D5W 50ml) 50 ml @ 100 mls/hr Q24H IVPB 08/06/16 16:30 08/13/16 16:29 08/08/16 17:23 Clonidine HCl (Catapres) 0.1 mg Q4H PRN ORAL bp over 170 syst 08/05/16 19:45 09/04/16 19:44 08/08/16 13:51 Dextrose (Dextrose 50%) STAT PRN IV Hypoglycemia 08/05/16 20:15 09/04/16 20:14 Docusate Sodium (Colace) 100 mg TID ORAL 08/06/16 09:00 09/05/16 08:59 08/08/16 17:30 Donepezil HCl (Aricept) 10 mg QHS ORAL 08/06/16 21:00 09/05/16 20:59 08/07/16 21:44 Glipizide (Glucotrol) 5 mg BIDBL ORAL 08/06/16 06:30 09/05/16 06:29 08/08/16 12:15 Haloperidol Lactate (Haldol) 2 mg Q4H PRN IM Agitation 08/05/16 19:30 09/04/16 19:29 Heparin Sodium (Porcine) (Heparin 5000 units/ml) 5,000 units EVERY 12 HOURS SUBQ 08/05/16 21:00 09/04/16 20:59 08/07/16 21:42 Hydralazine HCl (Apresoline) 25 mg Q8HR ORAL 08/08/16 14:30 09/07/16 14:29 08/08/16 15:02 Insulin Aspart (NovoLOG) BEFORE MEALS AND HS SUBQ 08/05/16 21:00 09/04/16 20:59 08/08/16 13:52 Iron Sucrose/ Sodium Chloride (Venofer/Sodium Chloride 100ml bag) 105 ml @ 381.818 mls/hr BEDTIME IVPB 08/07/16 21:00 08/16/16 21:17 08/07/16 22:25 Lisinopril 20 mg 20 mg BID ORAL 08/07/16 18:00 09/06/16 17:59 08/08/16 10:05 Metformin HCl (Glucophage) 500 mg BID ORAL 08/06/16 09:00 09/05/16 08:59 08/08/16 17:30 Metoclopramide HCl (Reglan) 5 mg BEFORE MEALS ORAL 08/07/16 12:30 09/06/16 12:29 08/08/16 17:26 Metoclopramide HCl (Reglan) 10 mg Q6H PRN IVP Nausea & Vomiting 08/06/16 23:30 09/05/16 23:29 08/08/16 13:51 Pantoprazole (Protonix) 40 mg BID ORAL 08/06/16 09:00 09/05/16 08:59 08/08/16 17:31 Sertraline HCl 50 mg 50 mg DAILY ORAL 08/06/16 09:00 09/05/16 08:59 08/08/16 10:06 Vitamin D (Vitamin D) 2,000 intlu DAILY ORAL 08/06/16 09:00 09/05/16 08:59 08/08/16 10:05 JAIRO DELEON Aug 08, 2016 19:08
[2016-08-08 20:00] VITALS: BP 124/64
[2016-08-08] MEDS: Donepezil 5mg Tab ORAL SCH (20:29)
[2016-08-09] VITALS (7 sets, daily range): BP systolic 130–178; BP diastolic 50–78
[2016-08-09] MEDS: GlipiZIDE 5mg tab ORAL SCH ×2 (06:03→12:39)
[2016-08-09] MEDS: HydrALAZINE 10mg Tab ORAL SCH ×2 (06:03→13:46)
[2016-08-09] MEDS: NovoLOG Insulin Flexpen SUBQ SCH ×4 (06:04→20:49)
[2016-08-09 07:49] LABS: BASOPHILS % (AUTO) 0.5 % (0.0-2.0); EOSINOPHILS % (AUTO) 0.4 % (0.0-3.0); LYMPHOCYTES % (AUTO) 7.8 % (20.0-45.0); MEAN CORPUSCULAR HEMOGLOBIN 24.3 PG (27.0-31.0); MEAN CORPUSCULAR VOLUME 76 FL (80-99); MEAN PLATELET VOLUME 7.4 FL (6.5-10.1); MONOCYTES % (AUTO) 7.1 % (1.0-10.0); NEUTROPHILS % (AUTO) 84.1 % (45.0-75.0); PLATELET COUNT 259 K/UL (150-450); RED BLOOD COUNT 4.05 M/UL (4.20-5.40); RED CELL DISTRIBUTION WIDTH 14.1 % (11.6-14.8); WHITE BLOOD COUNT 9.7 K/UL (4.8-10.8)
[2016-08-09 08:13] LABS: ALANINE AMINOTRANSFERASE 9 U/L (3-33); ALBUMIN/GLOBULIN RATIO 0.7 (1.0-2.7); ANION GAP 18 (5-15); ASPARTATE AMINO TRANSFERASE 13 U/L (5-40); CALCIUM 8.9 mg/dL (8.6-10.2); CARBON DIOXIDE 21 mEQ/L (20-30); CHLORIDE 101 mEQ/L (98-107); CREATININE 1.2 mg/dL (0.5-0.9); CRP QUANT 1.8 mg/dL (< 0.5); HEMOLYSIS 0; MAGNESIUM 1.9 mg/dL (1.7-2.5); PHOSPHORUS 3.1 mg/dL (2.5-4.8); POTASSIUM 3.8 mEQ/L (3.4-4.9); SODIUM 140 mEQ/L (135-145); TOTAL PROTEIN 6.9 g/dL (6.6-8.7)
[2016-08-09] MEDS: Lisinopril 10mg tab ORAL SCH ×2 (09:17→19:08)
[2016-08-09] MEDS: Vitamin D 1000 IU Tab ORAL SCH (09:18)
[2016-08-09] MEDS: Docusate 100mg cap ORAL SCH ×3 (09:18→19:07)
[2016-08-09] MEDS: Sertraline 50mg tab ORAL SCH (09:19)
[2016-08-09] MEDS: metFORMIN 500mg tab ORAL SCH ×2 (09:20→18:00)
[2016-08-09] MEDS: Heparin 5000 units/ml inj SUBQ SCH ×2 (09:25→20:54)
--- NOTE | 2016-08-09 14:30 | General Progress Note ---
Assessment/Plan Status: stable Assessment/Plan Status: - urinary tract infection, -left foot gangrene, -dementia, -diabetes mellitus and -severe anemia. - Mild CHF Podiatry Impresion: 1) Cellulitis left foot 2) Diabetic foot ulcer left hallux - Stage 2 3) Diabetic foot ulcer right foot - Stage 3 4) Diabetic Neuropathy Plan: more lasix Ceftriaxone- Transfused- IV Iron- Foot care- Bone scan- Placement??in am Subjective ROS Limited/Unobtainable: No Constitutional: Reports: malaise, weakness Allergies: Coded Allergies: No Known Allergies (Unverified , 03/28/13) Objective Last 24 Hour Vital Signs Date Time Temp Pulse Resp B/P Pulse Ox O2 Delivery O2 Flow Rate FiO2 08/09/16 13:46 159/74 08/09/16 11:34 97.5 68 18 159/74 99 Room Air 08/09/16 09:17 151/50 08/09/16 07:56 98.1 65 18 151/50 98 Room Air 08/09/16 06:03 150/77 08/09/16 04:00 97.9 70 18 150/77 98 Room Air 08/09/16 00:00 99.1 60 20 130/61 98 Room Air 08/08/16 22:00 124/64 08/08/16 20:00 98.2 67 21 124/64 98 Room Air 08/08/16 17:33 99/52 08/08/16 16:00 98.2 65 18 99/52 98 Room Air 08/08/16 15:02 188/92 Intake and Output 08/08/16 08/09/16 19:00 07:00 Intake Total 170 ml 315 ml Output Total 100 ml 1200 ml Balance 70 ml -885 ml Intake Oral 120 ml 210 ml IV Total 50 ml 105 ml Output Urine Total 100 ml 1200 ml # Voids 1 2 Laboratory Tests 08/09/16 05:30: Stool Occult Blood Negative 08/09/16 06:25: White Blood Count 9.7, Red Blood Count 4.05L, Hemoglobin 9.8L, Hematocrit 30.7L , Mean Corpuscular Volume 76L, Mean Corpuscular Hemoglobin 24.3L, Mean Corpuscular Hemoglobin Concent 32.0, Red Cell Distribution Width 14.1, Platelet Count 259, Mean Platelet Volume 7.4, Neutrophils (%) (Auto) 84.1H, Lymphocytes ( %) (Auto) 7.8L, Monocytes (%) (Auto) 7.1, Eosinophils (%) (Auto) 0.4, Basophils (%) (Auto) 0.5, Sodium Level 140, Potassium Level 3.8, Chloride Level 101, Carbon Dioxide Level 21, Anion Gap 18H, Blood Urea Nitrogen 21, Creatinine 1.2H , Estimat Glomerular Filtration Rate , Glucose Level 134H, Calcium Level 8.9, Phosphorus Level 3.1, Magnesium Level 1.9, Total Bilirubin 0.3, Aspartate Amino Transf (AST/SGOT) 13, Alanine Aminotransferase (ALT/SGPT) 9, Alkaline Phosphatase 96, C-Reactive Protein, Quantitative 1.8H, Pro-B-Type Natriuretic Peptide 3552H, Total Protein 6.9, Albumin 3.0L, Globulin 3.9, Albumin/Globulin Ratio 0.7L, Folate [Pending] Height (Feet): 5 Height (Inches): 3.00 Weight (Pounds): 168 General Appearance: no apparent distress Objective PE otherwise not changed ADINA GUARDADO Aug 09, 2016 14:30
[2016-08-09] MEDS: cefTRIAXone 1 GM in D5W 50 ML IVPB SCH (19:07)
--- NOTE | 2016-08-09 19:19 | Pulmonology Progress Note ---
Assessment/Plan Assessment/Plan Status: stable, progressing Assessment/Plan Assessment Urinary tract infection, Left foot gangrene, Dementia, Diabetes mellitus Severe anemia Mild CHF Plan Broad Spectrum Antbx Septic workup Pain management Follow up with Cx report IV hydration gentle Subjective ROS Limited/Unobtainable: No Constitutional: Reports: chills, fatigue Genitourinary: Reports: dysuria, frequency, urgency Allergies: Coded Allergies: No Known Allergies (Unverified , 03/28/13) Objective Last 24 Hour Vital Signs Date Time Temp Pulse Resp B/P Pulse Ox O2 Delivery O2 Flow Rate FiO2 08/09/16 19:08 150/57 08/09/16 16:00 98.1 70 20 162/78 96 Room Air 08/09/16 13:46 159/74 08/09/16 11:34 97.5 68 18 159/74 99 Room Air 08/09/16 09:17 151/50 08/09/16 07:56 98.1 65 18 151/50 98 Room Air 08/09/16 06:03 150/77 08/09/16 04:00 97.9 70 18 150/77 98 Room Air 08/09/16 00:00 99.1 60 20 130/61 98 Room Air 08/08/16 22:00 124/64 08/08/16 20:00 98.2 67 21 124/64 98 Room Air Intake and Output 08/08/16 08/09/16 19:00 07:00 Intake Total 170 ml 315 ml Output Total 100 ml 1200 ml Balance 70 ml -885 ml Intake Oral 120 ml 210 ml IV Total 50 ml 105 ml Output Urine Total 100 ml 1200 ml # Voids 1 2 General Appearance: no acute distress HEENT: normocephalic, atraumatic, PERRL Respiratory/Chest: chest wall non-tender, decreased breath sounds, accessory muscle use Breasts: no masses Cardiovascular: normal peripheral pulses, normal rate, regular rhythm, no JVD Abdomen: normal bowel sounds, soft, non tender, no organomegaly, non distended Genitourinary: normal external genitalia Extremities: no cyanosis Skin: no rash 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, no motor/sensory deficits, responsive, disoriented Laboratory Tests 08/09/16 05:30: Stool Occult Blood Negative 08/09/16 06:25: White Blood Count 9.7, Red Blood Count 4.05L, Hemoglobin 9.8L, Hematocrit 30.7L , Mean Corpuscular Volume 76L, Mean Corpuscular Hemoglobin 24.3L, Mean Corpuscular Hemoglobin Concent 32.0, Red Cell Distribution Width 14.1, Platelet Count 259, Mean Platelet Volume 7.4, Neutrophils (%) (Auto) 84.1H, Lymphocytes ( %) (Auto) 7.8L, Monocytes (%) (Auto) 7.1, Eosinophils (%) (Auto) 0.4, Basophils (%) (Auto) 0.5, Sodium Level 140, Potassium Level 3.8, Chloride Level 101, Carbon Dioxide Level 21, Anion Gap 18H, Blood Urea Nitrogen 21, Creatinine 1.2H , Estimat Glomerular Filtration Rate , Glucose Level 134H, Calcium Level 8.9, Phosphorus Level 3.1, Magnesium Level 1.9, Total Bilirubin 0.3, Aspartate Amino Transf (AST/SGOT) 13, Alanine Aminotransferase (ALT/SGPT) 9, Alkaline Phosphatase 96, C-Reactive Protein, Quantitative 1.8H, Pro-B-Type Natriuretic Peptide 3552H, Total Protein 6.9, Albumin 3.0L, Globulin 3.9, Albumin/Globulin Ratio 0.7L, Folate [Pending] Current Medications Medications (Trade) Dose Ordered Sig/Nancy Route PRN Reason Start Time Stop Time Status Last Admin Dose Admin Acetaminophen (Tylenol) 650 mg Q6H PRN ORAL For Pain 08/05/16 19:30 09/04/16 19:29 Ceftriaxone Sodium/Dextrose (Rocephin/D5W 50ml) 50 ml @ 100 mls/hr Q24H IVPB 08/06/16 16:30 08/13/16 16:29 08/09/16 19:07 Clonidine HCl (Catapres) 0.1 mg Q4H PRN ORAL bp over 170 syst 08/05/16 19:45 09/04/16 19:44 08/08/16 13:51 Dextrose (Dextrose 50%) STAT PRN IV Hypoglycemia 08/05/16 20:15 09/04/16 20:14 Docusate Sodium (Colace) 100 mg TID ORAL 08/06/16 09:00 09/05/16 08:59 08/09/16 19:07 Donepezil HCl (Aricept) 10 mg QHS ORAL 1/9/17 21:00 09/05/16 20:59 08/08/16 20:29 Glipizide (Glucotrol) 5 mg BIDBL ORAL 08/06/16 06:30 09/05/16 06:29 08/09/16 12:39 Haloperidol Lactate (Haldol) 2 mg Q4H PRN IM Agitation 08/05/16 19:30 09/04/16 19:29 Heparin Sodium (Porcine) (Heparin 5000 units/ml) 5,000 units EVERY 12 HOURS SUBQ 08/05/16 21:00 09/04/16 20:59 08/09/16 09:25 Hydralazine HCl (Apresoline) 50 mg Q8HR ORAL 08/09/16 22:00 09/08/16 21:59 Insulin Aspart (NovoLOG) BEFORE MEALS AND HS SUBQ 08/05/16 21:00 09/04/16 20:59 08/09/16 06:04 Iron Sucrose/ Sodium Chloride (Venofer/Sodium Chloride 100ml bag) 105 ml @ 381.818 mls/hr BEDTIME IVPB 08/07/16 21:00 08/16/16 21:17 08/08/16 20:29 Lisinopril 20 mg 20 mg BID ORAL 08/07/16 18:00 09/06/16 17:59 08/09/16 19:08 Metformin HCl (Glucophage) 500 mg BID ORAL 08/06/16 09:00 09/05/16 08:59 08/09/16 09:20 Metoclopramide HCl (Reglan) 5 mg BEFORE MEALS ORAL 08/07/16 12:30 09/06/16 12:29 08/09/16 17:01 Metoclopramide HCl (Reglan) 10 mg Q6H PRN IVP Nausea & Vomiting 08/06/16 23:30 09/05/16 23:29 08/08/16 13:51 Pantoprazole (Protonix) 40 mg BID ORAL 08/06/16 09:00 09/05/16 08:59 08/09/16 19:07 Sertraline HCl 50 mg 50 mg DAILY ORAL 08/06/16 09:00 09/05/16 08:59 08/09/16 09:19 Vitamin D (Vitamin D) 2,000 intlu DAILY ORAL 08/06/16 09:00 09/05/16 08:59 08/09/16 09:18 JAIRO DELEON Aug 09, 2016 19:19
[2016-08-09] MEDS ORDERED: Donepezil 10mg tab ORAL SCH (21:00)
[2016-08-09] MEDS: HydrALAZINE 50mg tab ORAL SCH (22:39)
[2016-08-10] VITALS: BP 145/81
[2016-08-10 04:42] VITALS: BP 135/71
[2016-08-10] MEDS: NovoLOG Insulin Flexpen SUBQ SCH ×2 (05:44→13:49)
[2016-08-10] MEDS: HydrALAZINE 50mg tab ORAL SCH ×2 (05:45→15:04)
[2016-08-10] MEDS: GlipiZIDE 5mg tab ORAL SCH ×2 (06:44→13:22)
[2016-08-10 08:00] VITALS: BP 146/73
[2016-08-10] MEDS: Vitamin D 1000 IU Tab ORAL SCH (10:06)
[2016-08-10] MEDS: metFORMIN 500mg tab ORAL SCH (10:06)
[2016-08-10] MEDS: Docusate 100mg cap ORAL SCH ×2 (10:06→13:22)
[2016-08-10] MEDS: Sertraline 50mg tab ORAL SCH (10:07)
[2016-08-10] MEDS: Lisinopril 10mg tab ORAL SCH (10:07)
[2016-08-10] MEDS: Heparin 5000 units/ml inj SUBQ SCH (10:12)
[2016-08-10] MEDS ORDERED: REGLAN10 MG ORAL (11:04)
[2016-08-10] MEDS ORDERED: LISINOPRIL10 MG ORAL (11:04)
[2016-08-10] MEDS ORDERED: APRESOLINE50 MG ORAL (11:04)
[2016-08-10] MEDS ORDERED: COLACE100 MG ORAL (11:04)
[2016-08-10] MEDS ORDERED: GLIPIZIDE5 MG ORAL (11:04)
[2016-08-10] MEDS ORDERED: ARICEPT10 MG ORAL (11:04)
--- NOTE | 2016-08-10 11:05 | Discharge Instructions ---
Discharge Instructions Discharge Instructions Follow up with: myself Diet: diabetic calorie control Activity: other - PT OT eval Special Instructions wound care to eval left foot ulcers and care- Psych eval- For Congestive Heart Failure Reminder Report to your physician any weight gain of 5 pounds or more in one week. ADINA GUARDADO Aug 10, 2016 11:05
[2016-08-10] MEDS ORDERED: LEVAQUIN250 M1 ORAL (11:07)
--- NOTE | 2016-08-10 11:09 | General Progress Note ---
Assessment/Plan Status: stable Assessment/Plan Status: - urinary tract infection, klebsiella- sensitive to levaquin -left foot gangrene, -dementia, -diabetes mellitus and -severe anemia. - Mild CHF Podiatry Impresion: 1) Cellulitis left foot 2) Diabetic foot ulcer left hallux - Stage 2 3) Diabetic foot ulcer right foot - Stage 3 4) Diabetic Neuropathy Plan: PO Levaquin Transfused- IV Iron- given during hospitalization Foot care- DC to [facility] Subjective ROS Limited/Unobtainable: No Constitutional: Reports: malaise, weakness Allergies: Coded Allergies: No Known Allergies (Unverified , 03/28/13) Objective Last 24 Hour Vital Signs Date Time Temp Pulse Resp B/P Pulse Ox O2 Delivery O2 Flow Rate FiO2 08/10/16 10:07 146/73 08/10/16 08:00 97.2 70 18 146/73 97 Room Air 08/10/16 05:45 135/71 08/10/16 04:42 97.7 70 20 135/71 98 Room Air 08/10/16 00:00 97.2 77 19 145/81 97 Room Air 08/09/16 22:39 169/76 08/09/16 22:38 69 169/76 08/09/16 19:08 150/57 08/09/16 19:00 98.1 72 20 178/65 98 Room Air 08/09/16 16:00 98.1 70 20 162/78 96 Room Air 08/09/16 13:46 159/74 08/09/16 11:34 97.5 68 18 159/74 99 Room Air Intake and Output 08/09/16 08/10/16 19:00 07:00 Intake Total 120 ml 290 ml Output Total 325 ml 1675 ml Balance -205 ml -1385 ml Intake Oral 120 ml 240 ml IV Total 50 ml Output Urine Total 325 ml 1675 ml # Bowel Movements 2 Current Medications Medications (Trade) Dose Ordered Sig/Nancy Route PRN Reason Start Time Stop Time Status Last Admin Dose Admin Acetaminophen (Tylenol) 650 mg Q6H PRN ORAL For Pain 08/05/16 19:30 09/04/16 19:29 Ceftriaxone Sodium/Dextrose (Rocephin/D5W 50ml) 50 ml @ 100 mls/hr Q24H IVPB 08/06/16 16:30 08/13/16 16:29 08/09/16 19:07 Clonidine HCl (Catapres) 0.1 mg Q4H PRN ORAL bp over 170 syst 08/05/16 19:45 09/04/16 19:44 08/08/16 13:51 Dextrose (Dextrose 50%) STAT PRN IV Hypoglycemia 08/05/16 20:15 09/04/16 20:14 Docusate Sodium (Colace) 100 mg TID ORAL 08/06/16 09:00 09/05/16 08:59 08/10/16 10:06 Donepezil HCl (Aricept) 10 mg QHS ORAL 08/09/16 21:00 09/08/16 20:59 08/09/16 20:47 Glipizide (Glucotrol) 5 mg BIDBL ORAL 08/06/16 06:30 09/05/16 06:29 08/10/16 06:44 Haloperidol Lactate (Haldol) 2 mg Q4H PRN IM Agitation 08/05/16 19:30 09/04/16 19:29 Heparin Sodium (Porcine) (Heparin 5000 units/ml) 5,000 units EVERY 12 HOURS SUBQ 08/05/16 21:00 09/04/16 20:59 08/10/16 10:12 Hydralazine HCl (Apresoline) 50 mg Q8HR ORAL 08/09/16 22:00 09/08/16 21:59 08/10/16 05:45 Insulin Aspart (NovoLOG) BEFORE MEALS AND HS SUBQ 08/05/16 21:00 09/04/16 20:59 08/10/16 05:44 Iron Sucrose/ Sodium Chloride (Venofer/Sodium Chloride 100ml bag) 105 ml @ 381.818 mls/hr BEDTIME IVPB 08/07/16 21:00 08/16/16 21:17 08/09/16 20:47 Lisinopril 20 mg 20 mg BID ORAL 08/07/16 18:00 09/06/16 17:59 08/10/16 10:07 Metformin HCl (Glucophage) 500 mg BID ORAL 08/06/16 09:00 09/05/16 08:59 08/10/16 10:06 Metoclopramide HCl (Reglan) 5 mg BEFORE MEALS ORAL 08/07/16 12:30 09/06/16 12:29 08/10/16 05:45 Metoclopramide HCl (Reglan) 10 mg Q6H PRN IVP Nausea & Vomiting 08/06/16 23:30 09/05/16 23:29 08/08/16 13:51 Pantoprazole (Protonix) 40 mg BID ORAL 08/06/16 09:00 09/05/16 08:59 08/09/16 19:07 Sertraline HCl 50 mg 50 mg DAILY ORAL 08/06/16 09:00 09/05/16 08:59 08/10/16 10:07 Vitamin D (Vitamin D) 2,000 intlu DAILY ORAL 08/06/16 09:00 09/05/16 08:59 08/10/16 10:06 Laboratory Tests 08/10/16 03:30: Stool Occult Blood [Pending] Height (Feet): 5 Height (Inches): 3.00 Weight (Pounds): 168 General Appearance: no apparent distress Objective PE otherwise not changed ADINA GUARDADO Aug 10, 2016 11:09
[2016-08-10 12:00] VITALS: BP 130/81
[2016-08-10] MEDS: Metoclopramide 10mg/2ml Inj IVP PRN (13:22)
--- NOTE | 2016-08-10 17:03 | Pulmonology Progress Note ---
Assessment/Plan Assessment/Plan Assessment/Plan Status: stable, progressing Assessment/Plan Assessment Urinary tract infection, Left foot gangrene, Dementia, Diabetes mellitus Severe anemia Mild CHF Plan Broad Spectrum Antbx Septic workup Pain management Follow up with Cx report IV hydration gentle Subjective ROS Limited/Unobtainable: Yes Constitutional: Reports: anorexia, fatigue Neurologic: Reports: confusion, weakness Allergies: Coded Allergies: No Known Allergies (Unverified , 03/28/13) Objective Last 24 Hour Vital Signs Date Time Temp Pulse Resp B/P Pulse Ox O2 Delivery O2 Flow Rate FiO2 08/10/16 12:00 96.8 65 18 130/81 100 Room Air 08/10/16 10:07 146/73 08/10/16 08:00 97.2 70 18 146/73 97 Room Air 08/10/16 05:45 135/71 08/10/16 04:42 97.7 70 20 135/71 98 Room Air 08/10/16 00:00 97.2 77 19 145/81 97 Room Air 08/09/16 22:39 169/76 08/09/16 22:38 69 169/76 08/09/16 19:08 150/57 08/09/16 19:00 98.1 72 20 178/65 98 Room Air Intake and Output 08/09/16 08/10/16 19:00 07:00 Intake Total 120 ml 290 ml Output Total 325 ml 1675 ml Balance -205 ml -1385 ml Intake Oral 120 ml 240 ml IV Total 50 ml Output Urine Total 325 ml 1675 ml # Bowel Movements 2 General Appearance: no acute distress HEENT: normocephalic, atraumatic, PERRL Respiratory/Chest: chest wall non-tender, normal breath sounds, no respiratory distress Breasts: no masses Cardiovascular: normal peripheral pulses, normal rate, regular rhythm, no JVD Abdomen: normal bowel sounds, soft, non tender, no organomegaly, non distended Genitourinary: normal external genitalia Extremities: no cyanosis Skin: no rash, no lesions Neurologic/Psychiatric: sole rougher II-XII grossly normal, responsive, disoriented, depressed affect Laboratory Tests 08/10/16 03:30: Stool Occult Blood [Pending] JAIRO DELEON Aug 10, 2016 17:03
--- NOTE | 2016-08-11 08:29 | Diagnostic Imaging Report ---
Indication: 76-year-old female with left great toe ulceration. Concern for osteomyelitis. History of diabetes mellitus. Technique: 25.4 mCi of technetium 99 MDP was injected intravenously. Blood flow, blood pool, delayed planar imaging of both feet performed. Comparison: Plain film 08/06/16 Findings: There is increased blood flow and blood pool activity on the first 2 phases of the study within the left great toe. Delayed planar images show slightly increased uptake within the left first metatarsal head and the first distal phalanx. The amount of uptake is only slightly above background or other bones and is equal in intensity to the fourth distal phalange and the midfoot. Impression: Left great toe is negative for acute osteomyelitis. Positive blood flow and blood pool imaging indicative of hyperemia and cellulitis.
--- NOTE | 2016-08-11 08:58 | Discharge Summary ---
Discharge Summary Hospital Course Date of Admission Aug 05, 2016 at 16:35 Date of Discharge Aug 10, 2016 at 15:15 Admitting Diagnosis urinary tract infection HPI Tanya Padilla is a 76 year old female who was admitted on Aug 05, 2016 at 16:35 for Urinary Tract Infection Hospital Course [id number] Discharge Discharge Disposition Patient was discharged to SNF/Subacute Facility(03) Discharge Diagnoses: Discharge Instructions Discharge Instructions Follow up with: myself Activity: other - PT OT Rachelle Tubbs NP Aug 11, 2016 08:58
--- NOTE | 2016-08-12 22:08 | Discharge Summary 2 SIG ---
DATE OF ADMISSION: 08/05/2016 DATE OF DISCHARGE: 08/10/2016 CONSULTANTS: 1. Devan Mendiola M.D. 2. eFlix Daniels D.P.M. BRIEF HOSPITAL COURSE: The patient is a 76-year-old female, who presented to the emergency room with a wound on her leg and foot and was found to have urinary tract infection and severe anemia. She was started on slow hydration. Hemoglobin was 6.7 and she received one unit of packed RBC and was also given IV iron. She was started on ceftriaxone for urinary tract infection. Dr. Daniels was consulted for evaluation of left foot cellulitis and diabetic foot ulcer. Wound care was rendered. Bone scan done was negative for osteomyelitis. Urine culture showed growth of Klebsiella, which was sensitive to Levaquin. Potassium was repleted. She underwent physical therapy and occupational therapy and the patient was discharged to long term. FINAL DIAGNOSES: 1. Urinary tract infection with Klebsiella. 2. Left foot gangrene. 3. Dementia. 4. Diabetes mellitus. 5. Acute anemia, status post blood transfusion. 6. Mild chronic diastolic congestive heart failure. 7. Diabetes mellitus. 8. Cellulitis of right foot, present on admission. 9. Diabetic foot ulcer of the left hallux, stage III, present on admission. 10. Diabetic foot ulcer, right foot stage III, present on admission. 11. Diabetic neuropathy. Mohsen Ortiz M.D. I have been assigned to dictate discharge summary on this account and I was not involved in the patient's management. Rachelle Gray N.P. DR: Delia JOB#: [id number] CC: ROSE
== END 2016-08-10 15:15 | DRG 638 ==
LOC: EMR 15:35 → 4W 16:35 → EDBEDREQ 17:04
PROC: 30233N1 Transfusion of Nonautologous Red Blood Cells into Peripheral Vein, Percutaneous Approach (ICD-10-PCS; principal; 2016-08-06)
DX: E11.621 Type 2 diabetes mellitus with foot ulcer (principal); I96 Gangrene, not elsewhere classified; L97.529 Non-pressure chronic ulcer of other part of left foot with unspecified severity; L97.519 Non-pressure chronic ulcer of other part of right foot with unspecified severity; I50.32 Chronic diastolic (congestive) heart failure; E11.40 Type 2 diabetes mellitus with diabetic neuropathy, unspecified; F03.90 Unspecified dementia, unspecified severity, without behavioral disturbance, psychotic disturbance, mood disturbance, and anxiety; N39.0 Urinary tract infection, site not specified; L03.115 Cellulitis of right lower limb; E11.65 Type 2 diabetes mellitus with hyperglycemia; B96.1 Klebsiella pneumoniae [K. pneumoniae] as the cause of diseases classified elsewhere; D64.9 Anemia, unspecified; K21.9 Gastro-esophageal reflux disease without esophagitis; I73.9 Peripheral vascular disease, unspecified
CPT/HCPCS: 36415; 71010; 78315; 80053; 80061; 80300; 81001; 82270; 82378; 82550; 82607; 82728; 82746; 82962; 82977; 83036; 83540; 83550; 83615; 83735; 83880; 84100; 84300; 84443; 84550; 85007; 85025; 85044; 85060; 85610; 85651; 85730; 86140; 86850; 86900; 86901; 86920; 87040; 87086; 87181; J1815; J2765; J8499

== ENCOUNTER 2017-06-09 16:11 | Inpatient (IN) | payer MEDICARE, OTHER ==
[2017-06-09] VITALS (7 sets, daily range): BP systolic 105–182; BP diastolic 61–82
[~2017-06-09] VITALS: Ht 162.6 cm; Wt 55.8 kg
[~2017-06-09 16:11] MED LIST changes: +APRESOLINE50 MG ORAL; +ARICEPT10 MG ORAL; +GLIMEPIRIDE4 MG ORAL; +LEVAQUIN250 M1 ORAL; +LISINOPRIL10 MG ORAL; +PRINIVIL10 MG ORAL; +REGLAN10 MG ORAL; +VITAMIN D1000 UNI1 ORAL
--- NOTE | 2017-06-09 16:35 | Emergency Room Report ---
History of Present Illness General Chief Complaint: General Complaint Source: Family Member, EMS Present Illness HPI The patient was [facility] in [facility] for high blood pressure and high blood sugar. Apparently her blood pressure was greater than 180 systolic. Also her blood sugar is elevated. The patient is on oral hypoglycemics. The patient usually has a GCS of 12 and does not answer when asked about pain or any other complaints. There's no alleged history of fevers , cough, nausea, vomiting or diarrhea. There is no recent evidence of trauma. She vomited once before being sent in. She was discharged 08/10/16 with these dx: 1. Urinary tract infection with Klebsiella. 2. Left foot gangrene. 3. Dementia. 4. Diabetes mellitus. 5. Acute anemia, status post blood transfusion. 6. Mild chronic diastolic congestive heart failure. 7. Diabetes mellitus. 8. Cellulitis of right foot, present on admission. 9. Diabetic foot ulcer of the left hallux, stage III, present on admission. 10. Diabetic foot ulcer, right foot stage III, present on admission. 11. Diabetic neuropathy. Allergies: Coded Allergies: No Known Allergies (Unverified , 03/28/13) Patient History Limited by: medical condition Past Medical History: see triage record, old chart reviewed Social History: Denies: smoking, alcohol use, drug use Social History Narrative [facility] - here with daughter in law Tessa Pruett POL with selective treatment. Reviewed Nursing Documentation: PMH: Agreed, PSxH: Agreed Nursing Documentation-PMH Hx Hypertension: Yes Hx Diabetes: Yes - type 2 Hx Cancer: No Hx Gastrointestinal Problems: Yes - GERD Hx Neurological Problems: Yes - dementia Hx Dementia: Yes Hx Weakness: Yes Review of Systems All Other Systems: limited Physical Exam Vital Signs Date Time Temp Pulse Resp B/P (MAP) Pulse Ox O2 Delivery O2 Flow Rate FiO2 06/09/17 16:19 99.1 82 20 154/78 97 Room Air Sp02 EP Interpretation: reviewed, normal General Appearance: no apparent distress, Chronically Ill Head: normocephalic, atraumatic Eyes: bilateral eye normal inspection, bilateral eye PERRL ENT: moist mucus membranes Neck: supple Respiratory: lungs clear, normal breath sounds Cardiovascular #1: regular rate, rhythm, edema - bilat with dressing R leg Cardiovascular #2: 2+ radial (R) Gastrointestinal: normal inspection, normal bowel sounds, non tender, no mass, non-distended Musculoskeletal: back normal Neurologic: alert, sensory intact, motor weakness - LE bilat, other - slight tremor mouth Psychiatric: depressed affect Skin: warm/dry, other - mild erythema L lower leg (minimal) Procedures Critical Care Time Critical Care Time Total Critical Care Time: 30 min bedside evaluation and treatment excludes procedures (EKG). Reason for critical care: NSTEMI, UTI, hyperglycemia, hypertension and determination level of care Possible complications: hypotension, hypertension, AK, shock, arrhythmias, metabolic acidosis, end organ damage, respiratory failure. Interventions: aspirin, nitrates, metoprolol, heparin Course: Patient with HTN and elevated glucose found to have + troponin with non- STEMI EKG. Insulin had been given prior. Aspirin, metoprolol and nitrates given with good response with BP. Patient denies pain. Discussed level of care with family and patient. Discussed with PMD who stated he will discuss with machine rug cleaner. Heparin bolus and drip begun. UTI treated with antibiotics. Patient improved and pain free with improved BP and glucose. Consultations: nursing staff, EMS, family, PMD Performed by: Dr. Hood Tolerated well condition = serious Medical Decision Making Diagnostic Impression: Primary Impression: NSTEMI (non-ST elevated myocardial infarction) Additional Impressions: UTI (urinary tract infection) Qualified Codes: N30.00 - Acute cystitis without hematuria Renal insufficiency Hypertension Qualified Codes: I10 - Essential (primary) hypertension Hyperglycemia Cognitive decline ER Course Patient presents with HTN and hyperglycemia. DDx: occult infection, renal failure, cardiac cause amongst others. Complex patient with poor history needs full evaluation with EKG, CXR, labs. Treatment with gentle hydration and consideration for insulin and antihypertensives. EKG without injury. CXR with mild CHF, inc cor. Called with + troponin. Aspirin and metoprolol given. Patient not complaining of pain. Repeat EKG. EKG #2 NSR 83, nl axis, NSSTTW changes, no STEMI. Pyuria, normal WBC, renal insufficiency, elevated glucose. Insulin given. Discussed with Dr. Ortiz who agrees with admission and he will contact the machine rug cleaner. Heparin bolus and drip begun. Signed out to Dr. Shukla as no beds on floor. Laboratory Tests Test 06/09/17 17:10 White Blood Count 9.6 K/UL (4.8-10.8) Red Blood Count 5.03 M/UL (4.20-5.40) Hemoglobin 11.8 G/DL (12.0-16.0) L Hematocrit 40.2 % (37.0-47.0) Mean Corpuscular Volume 80 FL (80-99) Mean Corpuscular Hemoglobin 23.4 PG (27.0-31.0) L Mean Corpuscular Hemoglobin Concent 29.3 G/DL (32.0-36.0) L Red Cell Distribution Width 12.5 % (11.6-14.8) Platelet Count 226 K/UL (150-450) Mean Platelet Volume 6.6 FL (6.5-10.1) Neutrophils (%) (Auto) 80.5 % (45.0-75.0) H Lymphocytes (%) (Auto) 12.2 % (20.0-45.0) L Monocytes (%) (Auto) 6.6 % (1.0-10.0) Eosinophils (%) (Auto) 0.2 % (0.0-3.0) Basophils (%) (Auto) 0.6 % (0.0-2.0) Prothrombin Time 10.7 SEC (9.30-11.50) Prothrombin Time INR 1.0 (0.9-1.1) PTT 28 SEC (23-33) Urine Color Pale yellow Urine Appearance Slightly cloudy Urine pH 5 (4.5-8.0) Urine Specific Brielle 1.015 (1.005-1.035) Urine Protein 3+ (NEGATIVE) H Urine Glucose (UA) 4+ (NEGATIVE) H Urine Ketones Negative (NEGATIVE) Urine Occult Blood 1+ (NEGATIVE) H Urine Nitrite Negative (NEGATIVE) Urine Bilirubin Negative (NEGATIVE) Urine Urobilinogen Normal MG/DL (0.0-1.0) Urine Leukocyte Esterase 2+ (NEGATIVE) H Urine RBC 2-4 /HPF (0 - 2) H Urine WBC 15-20 /HPF (0 - 2) H Urine Squamous Epithelial Cells Many /LPF (NONE/OCC) H Urine Bacteria Moderate /HPF (NONE) H Urine Mucus Few /LPF (NONE/OCC) H Sodium Level 140 MMOL/L (136-145) Potassium Level 4.9 MMOL/L (3.5-5.1) Chloride Level 104 MMOL/L (98-107) Carbon Dioxide Level 25 MMOL/L (21-32) Anion Gap 11 mmol/L (5-15) Blood Urea Nitrogen 40 mg/dL (7-18) H Creatinine 1.8 MG/DL (0.55-1.30) H Estimate Glomerular Filtration Rate mL/min (>60) Glucose Level 361 MG/DL (74-106) H Calcium Level 10.1 MG/DL (8.5-10.1) Total Bilirubin 0.2 MG/DL (0.2-1.0) Aspartate Amino Transferase (AST) 18 U/L (15-37) Alanine Aminotransferase (ALT) 23 U/L (12-78) Alkaline Phosphatase 72 U/L (46-116) Total Creatine Kinase 95 U/L (26-308) Troponin I 0.113 ng/mL (0.000-0.056) Pro-B-Type Natriuretic Peptide 1508 pg/mL (0-125) H Total Protein 7.6 G/DL (6.4-8.2) Albumin 3.5 G/DL (3.4-5.0) Globulin 4.1 g/dL Albumin/Globulin Ratio 0.9 (1.0-2.7) L Lipase 138 U/L (73-393) EKG Diagnostic Results Rate: normal Rhythm: NSR ST Segments: no acute changes Rhythm Strip Diag. Results EP Interpretation: yes Rhythm: NSR, no PVC's, no ectopy Chest X-Ray Diagnostic Results Chest X-Ray Diagnostic Results : Chest X-Ray Ordered: Yes # of Views/Limited/Complete: 1 View Indication: Other Interpretation: no effusion, no pneumothorax, other - increase araujo bilaterally with inc cor Impression: Other Electronically Signed by: Sushil Hood MD Last Vital Signs Date Time Temp Pulse Resp B/P (MAP) Pulse Ox O2 Delivery O2 Flow Rate FiO2 06/09/17 21:20 153/63 06/09/17 18:55 83 06/09/17 18:34 99.0 18 100 Room Air Status: improved Disposition: ADMITTED INPATIENT Condition: Serious Sushil Hood M.D. Jun 09, 2017 16:35
[2017-06-09] MEDS ORDERED: FERROUS SULFAT325 MG ORAL (16:36)
[2017-06-09] MEDS ORDERED: DONEPEZIL HCL10 M2 ORAL (16:36)
[2017-06-09] MEDS ORDERED: NAMENDA5 MG ORAL (17:19)
[2017-06-09] MEDS ORDERED: OMEPRAZOLE20 M2 ORAL (17:20)
[2017-06-09] MEDS ORDERED: ACETAMINOPHEN325 M1 ORAL (17:28)
[2017-06-09] MEDS ORDERED: VITAMIN C500 M1 ORAL (17:28)
[2017-06-09] MEDS ORDERED: VITAMIN D1000 UNI1 ORAL (17:29)
[2017-06-09 17:47] LABS: BASOPHILS % (AUTO) 0.6 % (0.0-2.0); EOSINOPHILS % (AUTO) 0.2 % (0.0-3.0); LYMPHOCYTES % (AUTO) 12.2 % (20.0-45.0); MEAN CORPUSCULAR HEMOGLOBIN 23.4 PG (27.0-31.0); MEAN CORPUSCULAR HGB CONC 29.3 G/DL (32.0-36.0); MEAN CORPUSCULAR VOLUME 80 FL (80-99); MEAN PLATELET VOLUME 6.6 FL (6.5-10.1); MONOCYTES % (AUTO) 6.6 % (1.0-10.0); NEUTROPHILS % (AUTO) 80.5 % (45.0-75.0); PLATELET COUNT 226 K/UL (150-450); RED BLOOD COUNT 5.03 M/UL (4.20-5.40); RED CELL DISTRIBUTION WIDTH 12.5 % (11.6-14.8); WHITE BLOOD COUNT 9.6 K/UL (4.8-10.8)
[2017-06-09 17:48] LABS: APPEARANCE,URINE SLIGHTLY CLOUDY; KETONES,URINE NEGATIVE (NEGATIVE); LEUKOCYTE ESTERASE ,URINE 2+ (NEGATIVE); NITRITE,URINE NEGATIVE (NEGATIVE); PH,URINE 5 (4.5-8.0); PROTEIN,URINE 3+ (NEGATIVE); UROBILINOGEN,URINE NORMAL MG/DL (0.0-1.0)
[2017-06-09 17:58] LABS: PROTHROMBIN TIME 10.7 SEC (9.30-11.50)
[2017-06-09 18:02] LABS: BACTERIA,URINE MODERATE /HPF; SQUAMOUS EPITHELIAL CELL,UR MANY /LPF (NONE/OCC); WBC,URINE 15-20 /HPF (0 - 2)
[2017-06-09 18:03] LABS: MUCUS,URINE FEW /LPF (NONE/OCC)
[2017-06-09 18:11] LABS: ANION GAP 11 mmol/L (5-15); CALCIUM 10.1 MG/DL (8.5-10.1); CARBON DIOXIDE 25 MMOL/L (21-32); CHLORIDE 104 MMOL/L (98-107); CREATININE 1.8 MG/DL (0.55-1.30); POTASSIUM 4.9 MMOL/L (3.5-5.1); SODIUM 140 MMOL/L (136-145)
[2017-06-09 18:26] LABS: ALANINE AMINOTRANSFERASE 23 U/L (12-78); ALBUMIN/GLOBULIN RATIO 0.9 (1.0-2.7); ASPARTATE AMINO TRANSFERASE 18 U/L (15-37); LIPASE 138 U/L (73-393); TOTAL PROTEIN 7.6 G/DL (6.4-8.2)
[2017-06-09] MEDS ORDERED: Aspirin Baby 81mg ORAL ONE (19:00)
[2017-06-09] MEDS ORDERED: Metoprolol 5mg/5ml Inj IVP SCH (19:00)
[2017-06-09] MEDS ORDERED: Heparin 5000 units/ml inj IV ONE (20:45)
[2017-06-09] MEDS ORDERED: Heparin 25,000u/D5W 500ml 500 ML IV SCH (20:45)
[2017-06-09] MEDS ORDERED: cefTRIAXone 1 GM in NS 55 ML IVPB ONE (20:45)
[2017-06-09] MEDS ORDERED: Nitroglycerin 2% oint pkt TOPIC ONE (20:45)
--- NOTE | 2017-06-09 20:52 | History & Physical ---
History and Physical History & Physicial UTI NSTEMI Dehydration HTN OOC ADINA GUARDADO Jun 09, 2017 20:52
[2017-06-09] MEDS ORDERED: Heparin 5000 units/ml inj SUBQ SCH (21:00)
[2017-06-09] MEDS: Donepezil 10mg tab ORAL SCH (21:00)
[2017-06-09] MEDS ORDERED: Metoclopramide 10mg/2ml Inj IVP PRN (21:30)
[2017-06-09] MEDS ORDERED: HydrALAZINE 50mg tab ORAL SCH (22:00)
[2017-06-09] MEDS: HydrALAZINE 50mg tab ORAL SCH (22:00)
[2017-06-09] MEDS ORDERED: Metoclopramide 10mg/2ml Inj IVP ONE (22:00)
[2017-06-10] VITALS (12 sets, daily range): BP systolic 90–149; BP diastolic 50–86
[2017-06-10 05:20] LABS: BASOPHILS % (AUTO) 0.4 % (0.0-2.0); EOSINOPHILS % (AUTO) 0.6 % (0.0-3.0); MEAN CORPUSCULAR HEMOGLOBIN 24.5 PG (27.0-31.0); MEAN CORPUSCULAR VOLUME 79 FL (80-99); MEAN PLATELET VOLUME 8.6 FL (6.5-10.1); MONOCYTES % (AUTO) 7.8 % (1.0-10.0); NEUTROPHILS % (AUTO) 80.1 % (45.0-75.0); PLATELET COUNT 209 K/UL (150-450); RED BLOOD COUNT 4.08 M/UL (4.20-5.40); RED CELL DISTRIBUTION WIDTH 12.7 % (11.6-14.8); WHITE BLOOD COUNT 11.9 K/UL (4.8-10.8)
[2017-06-10 05:29] LABS: HEMOGLOBIN A1C 8.7 % (4.3-6.0)
[2017-06-10] MEDS: HydrALAZINE 50mg tab ORAL SCH ×3 (06:10→22:24)
[2017-06-10] MEDS: Nitroglycerin 2% oint pkt TOPIC SCH ×4 (06:10→17:20)
[2017-06-10] MEDS ORDERED: metFORMIN 500mg tab ORAL SCH ×2 (06:30→16:30)
[2017-06-10] MEDS: GlipiZIDE 5mg tab ORAL SCH ×2 (06:30→12:20)
[2017-06-10 06:33] LABS: ALANINE AMINOTRANSFERASE 20 U/L (12-78); ALBUMIN/GLOBULIN RATIO 0.8 (1.0-2.7); ANION GAP 6 mmol/L (5-15); ASPARTATE AMINO TRANSFERASE 17 U/L (15-37); CALCIUM 9.2 MG/DL (8.5-10.1); CARBON DIOXIDE 26 MMOL/L (21-32); CHLORIDE 111 MMOL/L (98-107); CHOLESTEROL 152 MG/DL (< 200); CHOLESTEROL/HDL RATIO 2.9 (3.3-4.4); CREATININE 1.5 MG/DL (0.55-1.30); CRP QUANT 1.5 mg/dL (0.00-0.90); FERRITIN 364 NG/ML (8-388); MAGNESIUM 2.4 MG/DL (1.8-2.4); PHOSPHORUS 3.3 MG/DL (2.5-4.9); POTASSIUM 4.6 MMOL/L (3.5-5.1); SODIUM 143 MMOL/L (136-145); THYROID STIMULATING HORMONE 2.344 uiU/mL (0.360-3.740); TOTAL PROTEIN 6.5 G/DL (6.4-8.2); URIC ACID 5.9 MG/DL (2.6-7.2)
[2017-06-10 06:44] LABS: FOLIC ACID 16.1 NG/ML (3.1-17.5); IRON 49 ug/dL (50-175); TOTAL IRON BINDING CAPACITY 130 ug/dL (250-450)
--- NOTE | 2017-06-10 08:47 | History & Physical ---
History and Physical History & Physicial # [id number] ADINA GUARDADO Jun 10, 2017 08:47
[2017-06-10] MEDS: Docusate 100mg cap ORAL SCH ×3 (09:00→17:20)
[2017-06-10] MEDS ORDERED: Lisinopril 10mg tab ORAL SCH (09:00)
[2017-06-10] MEDS ORDERED: Lisinopril 20mg tab ORAL SCH ×2 (09:00)
[2017-06-10] MEDS ORDERED: Aspirin Baby 81mg ORAL SCH (09:00)
[2017-06-10] MEDS: Metoprolol Tartrate 12.5mg TAB ORAL SCH ×2 (09:33→20:24)
[2017-06-10] MEDS: Lisinopril 10mg tab ORAL SCH ×2 (09:33→17:24)
[2017-06-10] MEDS: Vitamin D 1000 IU Tab ORAL SCH (09:34)
[2017-06-10] MEDS: Pantoprazole Inj IVP SCH ×2 (09:34→20:26)
--- NOTE | 2017-06-10 10:33 | Diagnostic Imaging Report ---
Indication: Cough Technique: One view of the chest Comparison: 08/07/2016 Findings: Lungs and pleural spaces are clear. Heart size is normal. Aorta is tortuous. Since prior exam, previously demonstrated retrocardiac consolidation and pleural fluid is no longer evident Impression: No acute process
[2017-06-10] MEDS: NovoLOG Insulin Flexpen SUBQ SCH ×3 (12:22→20:28)
--- NOTE | 2017-06-10 20:16 | History and Physical Report ---
DATE OF ADMISSION: 06/10/2017 HISTORY OF PRESENT ILLNESS: The patient is a 76-year-old female, who is a resident of [facility]. The patient was found to have a very high blood pressure and high blood sugar in the [facility] and vomited once, brought into Emergency Room here at [facility]. After initial evaluation by the ER physician, the patient was found to have higher level of troponin, evidence of UTI, renal insufficiency, and hypertension that is out of control and high blood sugar. The patient is being admitted for further management. PAST MEDICAL HISTORY: Significant for diabetes mellitus, dementia, anemia, gastroesophageal reflux disease, and peripheral vascular disease. MEDICATIONS: The list of medications that the patient is taking is on the record. The patient also recently used to get Epogen in the prison for low hemoglobin level. ALLERGIES: Not known. PHYSICAL EXAMINATION: GENERAL: Right now, the patient is calm, not in any distress, opens eyes. VITAL SIGNS: Temperature 98.6 degrees, blood pressure now is 141/74; however, the blood pressure at one point was 183/96 in the emergency room, respiratory rates are 16, and pulse rate is 66. HEENT: Face is slightly pale. Head is normocephalic. Sclerae not icteric. LUNGS: No wheeze. No rhonchi. HEART: Regular, at this point is 68. BREASTS: Atrophic. ABDOMEN: Soft. EXTREMITIES: Scar over the left hip area of the previous surgery present. No ulceration in the skin was noted. The patient moves all extremities. LABORATORY RESULTS: Hemoglobin today is 10 and white blood cells 11.9. The BUN and creatinine on admit was 40 and 1.8 and troponin on admit was 0.113. The pro-natriuretic peptide is 1508 and also the albumin level is 2.9. No acute EKG changes seen. The urine test shows 20 white blood cells, 2+ leukocyte esterase, and 3+ protein. IMPRESSION: 1. Uti-DL-vakbuwgbx myocardial infarction. 2. Evidence of urinary tract infection. 3. Renal failure and diabetic nephropathy. 4. Diabetes mellitus. 5. Evidence of dehydration. 6. History of anemia. 7. History of peripheral vascular disease. PLAN: At this point, the patient will be started on antibiotics. Blood sugar, which is high, will be controlled. The patient will be on aspirin, beta-blockers, and blood pressure medication, will be under control with hydralazine and lisinopril. According to how the patient's condition evolves, we will make the proper changes in our future management. Mohsen Ortiz M.D. DR: ZEINAB JOB#: [id number] CC:
[2017-06-10] MEDS: Donepezil 10mg tab ORAL SCH (20:25)
--- NOTE | 2017-06-10 20:31 | Cardiology Progress Note ---
Assessment/Plan Assessment/Plan [id number] repeat trop await final echo venous dupelx trop not reach who criteria for ami may be related to renal insuf Objective Last 24 Hour Vital Signs Date Time Temp Pulse Resp B/P (MAP) Pulse Ox O2 Delivery O2 Flow Rate FiO2 06/10/17 17:24 107/58 06/10/17 17:20 107/63 06/10/17 16:00 64 18 137/68 95 Room Air 06/10/17 16:00 63 06/10/17 13:35 145/70 06/10/17 12:21 145/70 06/10/17 12:00 97.0 65 19 145/70 97 Room Air 06/10/17 12:00 54 06/10/17 09:33 145/66 06/10/17 09:33 63 145/66 06/10/17 08:44 96.8 63 18 145/66 Room Air 06/10/17 08:00 60 06/10/17 07:34 98.6 66 14 141/74 99 Room Air 06/10/17 06:35 98.6 66 14 141/74 99 Room Air 06/10/17 06:10 145/75 06/10/17 06:10 145/75 06/10/17 05:15 98.7 61 14 142/65 99 Room Air 06/10/17 05:00 98.2 64 14 108/58 99 Room Air 06/10/17 04:00 98.1 64 13 108/66 100 Room Air 06/10/17 03:00 98.4 62 12 102/62 100 Room Air 06/10/17 01:39 98.2 60 12 99/50 100 Room Air 06/10/17 00:20 98.1 71 14 90/57 99 Room Air 06/09/17 23:25 98.5 93 14 105/70 99 Room Air 06/09/17 22:25 98.5 97 14 118/74 99 Room Air 06/09/17 22:00 102/58 06/09/17 21:25 99.0 102 14 122/71 98 Room Air 06/09/17 21:20 153/63 Intake and Output 06/10/17 06/11/17 19:00 07:00 Intake Total 240 ml Output Total 300 ml Balance -60 ml Intake Oral 240 ml Output Urine Total 300 ml # Bowel Movements 1 Laboratory Tests Test 06/10/17 00:05 06/10/17 04:15 Troponin I 0.130 ng/mL (0.000-0.056) 0.095 ng/mL (0.000-0.056) White Blood Count 11.9 K/UL (4.8-10.8) H Red Blood Count 4.08 M/UL (4.20-5.40) L Hemoglobin 10.0 G/DL (12.0-16.0) L Hematocrit 32.4 % (37.0-47.0) L Mean Corpuscular Volume 79 FL (80-99) L Mean Corpuscular Hemoglobin 24.5 PG (27.0-31.0) L Mean Corpuscular Hemoglobin Concent 31.0 G/DL (32.0-36.0) L Red Cell Distribution Width 12.7 % (11.6-14.8) Platelet Count 209 K/UL (150-450) Mean Platelet Volume 8.6 FL (6.5-10.1) Neutrophils (%) (Auto) 80.1 % (45.0-75.0) H Lymphocytes (%) (Auto) 11.0 % (20.0-45.0) L Monocytes (%) (Auto) 7.8 % (1.0-10.0) Eosinophils (%) (Auto) 0.6 % (0.0-3.0) Basophils (%) (Auto) 0.4 % (0.0-2.0) Activated Partial Thromboplast Time 71 SEC (23-33) H Sodium Level 143 MMOL/L (136-145) Potassium Level 4.6 MMOL/L (3.5-5.1) Chloride Level 111 MMOL/L (98-107) H Carbon Dioxide Level 26 MMOL/L (21-32) Anion Gap 6 mmol/L (5-15) Blood Urea Nitrogen 34 mg/dL (7-18) H Creatinine 1.5 MG/DL (0.55-1.30) H Estimat Glomerular Filtration Rate mL/min (>60) Glucose Level 131 MG/DL (74-106) #H Hemoglobin A1c 8.7 % (4.3-6.0) H Uric Acid 5.9 MG/DL (2.6-7.2) Calcium Level 9.2 MG/DL (8.5-10.1) Phosphorus Level 3.3 MG/DL (2.5-4.9) Magnesium Level 2.4 MG/DL (1.8-2.4) Iron Level 49 ug/dL (50-175) L Total Iron Binding Capacity 130 ug/dL (250-450) L Percent Iron Saturation 38 % (15-50) Unsaturated Iron Binding 81 ug/dL (112-346) L Ferritin 364 NG/ML (8-388) Total Bilirubin 0.2 MG/DL (0.2-1.0) Gamma Glutamyl Transpeptidase 21 U/L (5-85) Aspartate Amino Transf (AST/SGOT) 17 U/L (15-37) Alanine Aminotransferase (ALT/SGPT) 20 U/L (12-78) Alkaline Phosphatase 57 U/L (46-116) C-Reactive Protein, Quantitative 1.5 mg/dL (0.00-0.90) H Pro-B-Type Natriuretic Peptide 2498 pg/mL (0-125) H Total Protein 6.5 G/DL (6.4-8.2) Albumin 2.9 G/DL (3.4-5.0) L Globulin 3.6 g/dL Albumin/Globulin Ratio 0.8 (1.0-2.7) L Triglycerides Level 55 MG/DL (0-200) Cholesterol Level 152 MG/DL (< 200) LDL Cholesterol 90 mg/dL (<100) HDL Cholesterol 52 MG/DL (40-60) Cholesterol/HDL Ratio 2.9 (3.3-4.4) L Vitamin B12 Level 925 PG/ML (193-986) Folate 16.1 NG/ML (3.1-17.5) Thyroid Stimulating Hormone (TSH) 2.344 uiU/mL (0.360-3.740) Microbiology Date/Time Source Procedure Growth Status 06/09/17 17:10 Urine,Clean Catch Urine Culture - Preliminary Gram Negative Bacillus 1 Resulted MECHE GUSTAFSON Jun 10, 2017 20:30
[2017-06-10] MEDS ORDERED: cefTRIAXone 1 GM in NS 55 ML IVPB SCH (21:00)
--- NOTE | 2017-06-10 21:30 | Consultation ---
History of Present Illness General Chief Complaint: General Complaint Present Illness HPI 76-year-old female, who is a resident of [facility]. The patient was found to have a very high blood pressure and high blood sugar in the residential and vomited once, brought into Emergency Room here at [facility]. the pt is confused and not able to answer the question due cognitive impairment. the pt has period agitation Allergies: Coded Allergies: No Known Allergies (Unverified , 06/10/17) Medication History Scheduled Ascorbic Acid* (Vitamin C*), 500 MG ORAL DAILY, (Reported) Cholecalciferol (Vitamin D3)* (Vitamin D*), 1,000 UNIT ORAL DAILY, (Reported) Cholecalciferol (Vitamin D3)* (Vitamin D*), 1,000 UNIT ORAL DAILY, (Reported) Docusate Sodium* (Colace*), 100 MG ORAL BID Docusate Sodium* (Colace*), 100 MG ORAL TID Donepezil Hcl* (Donepezil Hcl*), 5 MG ORAL QHS, (Reported) Donepezil Hcl* (Aricept*), 10 MG ORAL QHS Donepezil Hcl* (Donepezil Hcl*), 10 MG ORAL HS, (Reported) Ferrous Sulfate* (Ferrous Sulfate*), 325 MG ORAL THREE TIMES A DAY, (Reported) Glimepiride* (Glimepiride*), 1 MG ORAL BEFORE BREAKFAST, (Reported) Glipizide* (Glipizide*), 5 MG ORAL BIDBL Hydralazine HCl (Hydralazine HCl), 50 MG ORAL Q8HR Levofloxacin* (Levaquin*), 250 MG ORAL DAILY Lisinopril* (Prinivil*), 10 MG ORAL DAILY, (Reported) Lisinopril* (Lisinopril*), 20 MG ORAL BID Memantine Hcl* (Namenda*), 5 MG ORAL TWICE A DAY, (Reported) Metformin Hcl* (Metformin Hcl*), 500 MG ORAL TWICE A DAY, (Reported) Metoclopramide Hcl* (Reglan*), 5 MG ORAL BEFORE MEALS Multivitamin (Multivitamins), 1 EACH PO DAILY, (Reported) Omeprazole (Omeprazole), 20 MG ORAL DAILY, (Reported) Pantoprazole* (Protonix*), 40 MG ORAL BID Pyridoxine HCl (Pyridoxine HCl), 50 MG ORAL DAILY Sertraline Hcl* (Sertraline Hcl*), 50 MG ORAL DAILY, (Reported) Scheduled PRN Acetaminophen* (Acetaminophen 325MG Tablet*), 650 MG ORAL Q6H PRN for For Pain Acetaminophen* (Acetaminophen 325MG Tablet*), 650 MG ORAL Q4H PRN for Fever/ Headache/Mild Pain, (Reported) Patient History Limited by: medical condition History Provided By: Patient, Medical Record, PMD Healthcare decision maker Resuscitation status Full Code Advanced Directive on File No Past Medical/Surgical History Past Medical/Surgical History: (1) Cellulitis (2) Renal failure (ARF), acute on chronic (3) Cellulitis (4) Laceration of lip (5) Dyspnea (6) UTI (urinary tract infection) (7) Hyperglycemia (8) Renal insufficiency (9) Hypertension (10) NSTEMI (non-ST elevated myocardial infarction) (11) Cognitive decline (12) Diabetes mellitus (13) Hyperglycemia (14) ACS (acute coronary syndrome) (15) Hip fracture (16) Hip fracture (17) GERD (gastroesophageal reflux disease) (18) Anemia Review of Systems Psychiatric: Reports: prior hx, anxiety, depressed feelings, emotional problems Physical Exam General Appearance: no apparent distress, lethargic, confused, agitated Neurologic: disoriented, unresponsiveness, depressed affect Last 24 Hour Vital Signs Date Time Temp Pulse Resp B/P (MAP) Pulse Ox O2 Delivery O2 Flow Rate FiO2 06/10/17 20:24 73 135/71 06/10/17 17:24 107/58 06/10/17 17:20 107/63 06/10/17 16:00 64 18 137/68 95 Room Air 06/10/17 16:00 63 06/10/17 13:35 145/70 06/10/17 12:21 145/70 06/10/17 12:00 97.0 65 19 145/70 97 Room Air 06/10/17 12:00 54 06/10/17 09:33 145/66 06/10/17 09:33 63 145/66 06/10/17 08:44 96.8 63 18 145/66 Room Air 06/10/17 08:00 60 06/10/17 07:34 98.6 66 14 141/74 99 Room Air 06/10/17 06:35 98.6 66 14 141/74 99 Room Air 06/10/17 06:10 145/75 06/10/17 06:10 145/75 06/10/17 05:15 98.7 61 14 142/65 99 Room Air 06/10/17 05:00 98.2 64 14 108/58 99 Room Air 06/10/17 04:00 98.1 64 13 108/66 100 Room Air 06/10/17 03:00 98.4 62 12 102/62 100 Room Air 06/10/17 01:39 98.2 60 12 99/50 100 Room Air 06/10/17 00:20 98.1 71 14 90/57 99 Room Air 06/09/17 23:25 98.5 93 14 105/70 99 Room Air 06/09/17 22:25 98.5 97 14 118/74 99 Room Air 06/09/17 22:00 102/58 Intake and Output 06/10/17 06/11/17 18:59 06:59 Intake Total 240 ml Output Total 300 ml Balance -60 ml Intake Oral 240 ml Output Urine Total 300 ml # Bowel Movements 1 Laboratory Tests Test 06/10/17 00:05 06/10/17 04:15 Troponin I 0.130 ng/mL (0.000-0.056) 0.095 ng/mL (0.000-0.056) White Blood Count 11.9 K/UL (4.8-10.8) H Red Blood Count 4.08 M/UL (4.20-5.40) L Hemoglobin 10.0 G/DL (12.0-16.0) L Hematocrit 32.4 % (37.0-47.0) L Mean Corpuscular Volume 79 FL (80-99) L Mean Corpuscular Hemoglobin 24.5 PG (27.0-31.0) L Mean Corpuscular Hemoglobin Concent 31.0 G/DL (32.0-36.0) L Red Cell Distribution Width 12.7 % (11.6-14.8) Platelet Count 209 K/UL (150-450) Mean Platelet Volume 8.6 FL (6.5-10.1) Neutrophils (%) (Auto) 80.1 % (45.0-75.0) H Lymphocytes (%) (Auto) 11.0 % (20.0-45.0) L Monocytes (%) (Auto) 7.8 % (1.0-10.0) Eosinophils (%) (Auto) 0.6 % (0.0-3.0) Basophils (%) (Auto) 0.4 % (0.0-2.0) Activated Partial Thromboplast Time 71 SEC (23-33) H Sodium Level 143 MMOL/L (136-145) Potassium Level 4.6 MMOL/L (3.5-5.1) Chloride Level 111 MMOL/L (98-107) H Carbon Dioxide Level 26 MMOL/L (21-32) Anion Gap 6 mmol/L (5-15) Blood Urea Nitrogen 34 mg/dL (7-18) H Creatinine 1.5 MG/DL (0.55-1.30) H Estimat Glomerular Filtration Rate mL/min (>60) Glucose Level 131 MG/DL (74-106) #H Hemoglobin A1c 8.7 % (4.3-6.0) H Uric Acid 5.9 MG/DL (2.6-7.2) Calcium Level 9.2 MG/DL (8.5-10.1) Phosphorus Level 3.3 MG/DL (2.5-4.9) Magnesium Level 2.4 MG/DL (1.8-2.4) Iron Level 49 ug/dL (50-175) L Total Iron Binding Capacity 130 ug/dL (250-450) L Percent Iron Saturation 38 % (15-50) Unsaturated Iron Binding 81 ug/dL (112-346) L Ferritin 364 NG/ML (8-388) Total Bilirubin 0.2 MG/DL (0.2-1.0) Gamma Glutamyl Transpeptidase 21 U/L (5-85) Aspartate Amino Transf (AST/SGOT) 17 U/L (15-37) Alanine Aminotransferase (ALT/SGPT) 20 U/L (12-78) Alkaline Phosphatase 57 U/L (46-116) C-Reactive Protein, Quantitative 1.5 mg/dL (0.00-0.90) H Pro-B-Type Natriuretic Peptide 2498 pg/mL (0-125) H Total Protein 6.5 G/DL (6.4-8.2) Albumin 2.9 G/DL (3.4-5.0) L Globulin 3.6 g/dL Albumin/Globulin Ratio 0.8 (1.0-2.7) L Triglycerides Level 55 MG/DL (0-200) Cholesterol Level 152 MG/DL (< 200) LDL Cholesterol 90 mg/dL (<100) HDL Cholesterol 52 MG/DL (40-60) Cholesterol/HDL Ratio 2.9 (3.3-4.4) L Vitamin B12 Level 925 PG/ML (193-986) Folate 16.1 NG/ML (3.1-17.5) Thyroid Stimulating Hormone (TSH) 2.344 uiU/mL (0.360-3.740) Height (Feet): 5 Height (Inches): 4.00 Weight (Pounds): 123 Medications Current Medications Medications (Trade) Dose Ordered Sig/Nancy Route PRN Reason Start Time Stop Time Status Last Admin Dose Admin Acetaminophen (Tylenol) 650 mg Q4H PRN ORAL Fever/Headache/Mild Pain 06/09/17 21:00 07/09/17 20:59 Aspirin (ASA) 325 mg DAILY ORAL 06/10/17 09:00 07/10/17 08:59 06/10/17 09:33 Atorvastatin Calcium (Lipitor) 10 mg BEDTIME ORAL 06/10/17 21:00 07/10/17 20:59 06/10/17 20:25 Ceftriaxone Sodium 1 gm/ Sodium Chloride 55 ml @ 110 mls/hr Q24HRS IVPB 06/10/17 21:00 06/17/17 20:59 06/10/17 20:25 Dextrose (Dextrose 50%) STAT PRN IV Hypoglycemia 06/10/17 15:45 07/10/17 15:44 Docusate Sodium (Colace) 100 mg TID ORAL 06/10/17 09:00 07/10/17 08:59 06/10/17 17:20 Donepezil HCl (Aricept) 10 mg QHS ORAL 06/09/17 21:00 07/09/17 20:59 06/10/17 20:25 Glipizide (Glucotrol) 5 mg BIDBL ORAL 06/10/17 06:30 07/10/17 06:29 06/10/17 12:20 Hydralazine HCl (Apresoline) 50 mg Q8HR ORAL 06/09/17 22:00 07/09/17 21:59 06/10/17 13:35 Insulin Aspart (NovoLOG) BEFORE MEALS AND HS SUBQ 06/10/17 11:30 07/10/17 11:29 06/10/17 20:28 Lisinopril (Zestril) 10 mg BID ORAL 06/10/17 09:00 07/10/17 08:59 06/10/17 09:33 Metoclopramide HCl (Reglan) 5 mg BEFORE MEALS ORAL 06/10/17 06:30 07/10/17 06:29 06/10/17 16:21 Metoclopramide HCl (Reglan) 10 mg Q6H PRN IVP Nausea & Vomiting 06/09/17 21:30 07/09/17 21:29 Metoprolol Tartrate (Lopressor) 12.5 mg Q12HR ORAL 06/10/17 09:00 07/10/17 08:59 06/10/17 20:24 Nitroglycerin (Nitro-Bid) 1 inch Q6HR TOPIC 06/10/17 00:00 07/10/17 00:00 06/10/17 17:20 Pantoprazole (Protonix) 40 mg Q12HR IVP 06/10/17 09:00 07/10/17 08:59 06/10/17 20:26 Vitamin D (Vitamin D) 1,000 intlu DAILY ORAL 06/10/17 09:00 07/10/17 08:59 06/10/17 09:34 Assessment/Plan Status: stable Assessment/Plan encephalopathy dementia -no med changes -cont to monitor Caroline Gudino M.D. Jun 10, 2017 21:30
[2017-06-11] VITALS (7 sets, daily range): BP systolic 104–143; BP diastolic 56–78
[2017-06-11] MEDS: Nitroglycerin 2% oint pkt TOPIC SCH ×2 (00:33→06:03)
--- NOTE | 2017-06-11 01:31 | Consultation ---
DATE OF CONSULTATION: 06/10/2017 CARDIOLOGY CONSULTATION REFERRING PHYSICIAN: Mohsen Ortiz M.D. REASON FOR CONSULTATION: Abnormal cardiac enzymes. HISTORY OF PRESENT ILLNESS: This is a very unfortunate elderly female, who is a resident of convalescent facility. Apparently, she had significantly elevated blood pressure and elevated blood sugars at the convalescent facility. She apparently does not usually communicate, but was transferred to the emergency room at [facility] for those reasons. A set of cardiac enzymes were checked and they have been persistently elevated; therefore, this consultation requested. On questioning, the patient denies any chest pain or shortness of breath, however, information she provides is suspicious for accuracy. PAST MEDICAL HISTORY: Positive for history of prior hospitalization here with urinary tract infection, left foot gangrene, dementia, diabetes mellitus, anemia, mild chronic diastolic heart failure, cellulitis, diabetic foot ulcer and diabetic neuropathy. She also has gastroesophageal reflux disease. There are some records here and some records at [facility] that were reviewed to obtain information on this patient's medical problems before. ALLERGIES: She is not allergic to any medications. SOCIAL HISTORY: She does not smoke and does not drink. She lives in a facility apparently at this time. REVIEW OF SYSTEMS: Really unable to obtain. PHYSICAL EXAMINATION: GENERAL: Shows an elderly female, in no respiratory distress. HEENT: Unremarkable. NECK: Supple. No jugular venous distention. No abdominojugular reflux noted. LUNGS: Clear to auscultation and percussion. CARDIAC: Regular rate and rhythm. No heaves, thrills, or gallops noted. ABDOMEN: Soft and nontender. Positive bowel sounds. EXTREMITIES: There is no clubbing, cyanosis, nor is there any edema. NEUROLOGICAL: She is awake, alert, responsive, and in no apparent respiratory distress. LABORATORY AND DIAGNOSTIC DATA: Echocardiogram shows ejection fraction of 60%, mild diastolic relaxation abnormality, PA pressure of 49. Other laboratories, cardiac enzymes, troponin on the new assay 0.113, 0.130, 0.095 over a matter of approximately 12 hours or so. ProBNP of 1500 up to 2500. Albumin of 2.9. TSH of 2.34. B12 of 925. Total cholesterol of 152 with a LDL of 90. PTT of 71. Sodium is 142, potassium 4.6, chloride 111, bicarbonate 34, BUN of , and a glucose of 131. White count 11.9, hemoglobin 10, platelet count of 209. The laboratory values also include urine that is positive for greater than 100,000 gram-negative bacilli and her urinalysis shows 15 to 20 WBCs and many squamous epithelials. Electrocardiogram shows sinus rhythm, no ST or T-wave abnormalities. Chest x-ray performed showed no acute processes. ASSESSMENT AND PLAN: 1. Abnormal cardiac enzymes. 2. Renal insufficiency. 3. Diabetes mellitus. 4. Peripheral vascular disease and peripheral neuropathy. 5. Dementia. Dr. Ortiz, this patient was seen in cardiac consultation. The patient's first three set of cardiac enzymes are minimally abnormal, do not reach the level of world health criteria for acute myocardial infarction. In fact, the fact that there was no significant peak or shamir so far makes it less likely that this is an acute coronary syndrome and may be related to renal insufficiency and decreased . Nevertheless, we will await the result of the echocardiogram. In the meantime, I would favor performing a venous duplex study of the lower extremities and consider further evaluation of pulmonary thromboembolism as well. I will follow the patient along with you. Sigifredo Nash M.D. DR: TA JOB#: [id number] CC:
[2017-06-11] MEDS: HydrALAZINE 50mg tab ORAL SCH ×3 (06:00→22:00)
[2017-06-11] MEDS: GlipiZIDE 5mg tab ORAL SCH ×2 (06:04→12:10)
[2017-06-11] MEDS: NovoLOG Insulin Flexpen SUBQ SCH ×4 (06:32→21:30)
[2017-06-11 07:38] LABS: BASOPHILS % (AUTO) 0.5 % (0.0-2.0); LYMPHOCYTES % (AUTO) 14.6 % (20.0-45.0); MEAN CORPUSCULAR HEMOGLOBIN 24.8 PG (27.0-31.0); MEAN CORPUSCULAR HGB CONC 31.1 G/DL (32.0-36.0); MEAN CORPUSCULAR VOLUME 80 FL (80-99); MEAN PLATELET VOLUME 8.2 FL (6.5-10.1); MONOCYTES % (AUTO) 7.1 % (1.0-10.0); NEUTROPHILS % (AUTO) 75.8 % (45.0-75.0); PLATELET COUNT 206 K/UL (150-450); RED BLOOD COUNT 3.94 M/UL (4.20-5.40); RED CELL DISTRIBUTION WIDTH 12.3 % (11.6-14.8); WHITE BLOOD COUNT 9.7 K/UL (4.8-10.8)
[2017-06-11 08:40] LABS: ALANINE AMINOTRANSFERASE 16 U/L (12-78); ALBUMIN/GLOBULIN RATIO 0.9 (1.0-2.7); ANION GAP 7 mmol/L (5-15); ASPARTATE AMINO TRANSFERASE 14 U/L (15-37); CALCIUM 9.1 MG/DL (8.5-10.1); CARBON DIOXIDE 25 MMOL/L (21-32); CHLORIDE 110 MMOL/L (98-107); CREATININE 1.6 MG/DL (0.55-1.30); PHOSPHORUS 3.3 MG/DL (2.5-4.9); POTASSIUM 4.3 MMOL/L (3.5-5.1); SODIUM 142 MMOL/L (136-145); TOTAL PROTEIN 5.9 G/DL (6.4-8.2)
[2017-06-11] MEDS: Lisinopril 10mg tab ORAL SCH (08:47)
[2017-06-11] MEDS: Metoprolol Tartrate 12.5mg TAB ORAL SCH (09:00)
[2017-06-11] MEDS: Pantoprazole Inj IVP SCH (09:01)
[2017-06-11] MEDS: Vitamin D 1000 IU Tab ORAL SCH (09:02)
[2017-06-11] MEDS: Docusate 100mg cap ORAL SCH ×3 (09:02→17:13)
--- NOTE | 2017-06-11 10:15 | Cardiology Progress Note ---
Assessment/Plan Assessment/Plan 1. Abnormal cardiac enzymes not reach WHO criteria for mi. 2. Renal insufficiency. 3. Diabetes mellitus. 4. Peripheral vascular disease and peripheral neuropathy. 5. Dementia. venous duplex neg v/q to review echo on ecotrin statin , bb however heart rate slow will decrease bb dose further with hold parameter watch bp may need to adjust acie dose Subjective Cardiovascular: Denies: chest pain, irregular heart rate, lightheadedness Respiratory: Denies: shortness of breath Genitourinary: Denies: burning Objective Last 24 Hour Vital Signs Date Time Temp Pulse Resp B/P (MAP) Pulse Ox O2 Delivery O2 Flow Rate FiO2 06/11/17 09:00 55 06/11/17 08:47 104/65 06/11/17 08:00 97.7 59 20 104/58 98 Room Air 06/11/17 06:03 116/65 06/11/17 06:00 116/65 06/11/17 04:00 60 06/11/17 04:00 97.9 64 21 109/56 96 Room Air 06/11/17 00:33 132/64 06/11/17 00:00 54 06/11/17 00:00 97.7 57 20 121/62 99 Room Air 06/10/17 22:24 138/70 06/10/17 22:21 59 138/68 06/10/17 20:24 73 135/71 06/10/17 20:00 67 06/10/17 20:00 99.0 66 20 149/86 99 Room Air 06/10/17 17:24 107/58 06/10/17 17:20 107/63 06/10/17 16:00 64 18 137/68 95 Room Air 06/10/17 16:00 63 06/10/17 13:35 145/70 06/10/17 12:21 145/70 06/10/17 12:00 97.0 65 19 145/70 97 Room Air 06/10/17 12:00 54 General Appearance: other - awake Neck: no JVD Cardiovascular: normal rate, regular rhythm Respiratory/Chest: lungs clear, normal breath sounds Abdomen: normal bowel sounds, non tender, soft Extremities: no swelling Laboratory Tests Test 06/11/17 06:40 White Blood Count 9.7 K/UL (4.8-10.8) Red Blood Count 3.94 M/UL (4.20-5.40) L Hemoglobin 9.7 G/DL (12.0-16.0) L Hematocrit 31.4 % (37.0-47.0) L Mean Corpuscular Volume 80 FL (80-99) Mean Corpuscular Hemoglobin 24.8 PG (27.0-31.0) L Mean Corpuscular Hemoglobin Concent 31.1 G/DL (32.0-36.0) L Red Cell Distribution Width 12.3 % (11.6-14.8) Platelet Count 206 K/UL (150-450) Mean Platelet Volume 8.2 FL (6.5-10.1) Neutrophils (%) (Auto) 75.8 % (45.0-75.0) H Lymphocytes (%) (Auto) 14.6 % (20.0-45.0) L Monocytes (%) (Auto) 7.1 % (1.0-10.0) Eosinophils (%) (Auto) 2.0 % (0.0-3.0) Basophils (%) (Auto) 0.5 % (0.0-2.0) Sodium Level 142 MMOL/L (136-145) Potassium Level 4.3 MMOL/L (3.5-5.1) Chloride Level 110 MMOL/L (98-107) H Carbon Dioxide Level 25 MMOL/L (21-32) Anion Gap 7 mmol/L (5-15) Blood Urea Nitrogen 31 mg/dL (7-18) H Creatinine 1.6 MG/DL (0.55-1.30) H Estimat Glomerular Filtration Rate mL/min (>60) Glucose Level 148 MG/DL (74-106) H Calcium Level 9.1 MG/DL (8.5-10.1) Phosphorus Level 3.3 MG/DL (2.5-4.9) Total Bilirubin 0.2 MG/DL (0.2-1.0) Aspartate Amino Transf (AST/SGOT) 14 U/L (15-37) L Alanine Aminotransferase (ALT/SGPT) 16 U/L (12-78) Alkaline Phosphatase 52 U/L (46-116) Troponin I 0.057 ng/mL (0.000-0.056) Total Protein 5.9 G/DL (6.4-8.2) L Albumin 2.8 G/DL (3.4-5.0) L Globulin 3.1 g/dL Albumin/Globulin Ratio 0.9 (1.0-2.7) L Microbiology Date/Time Source Procedure Growth Status 06/09/17 16:25 Nasal Nares MRSA Culture - Final NO METHICILLIN RESISTANT STAPH AUREUS... Complete 06/09/17 17:10 Urine,Clean Catch Urine Culture - Final Escherichia Coli Complete 06/09/17 16:25 Rectum VRE Culture - Final NO VANCOMYCIN RESISTANT ENTEROCOCCUS ... Complete MECHE GUSTAFSON Jun 11, 2017 10:15
--- NOTE | 2017-06-11 13:32 | General Progress Note ---
Assessment/Plan Assessment/Plan 1. Jyh-RO-[id number] myocardial infarction. 2. Evidence of urinary tract infection. 3. Renal failure and diabetic nephropathy. 4. Diabetes mellitus. 5. Evidence of dehydration. 6. History of anemia. 7. History of peripheral vascular disease. Rocephin- beta elbert BP meds BS control per orders med surg Subjective ROS Limited/Unobtainable: No Constitutional: Reports: malaise, weakness Allergies: Coded Allergies: No Known Allergies (Unverified , 06/10/17) Objective Last 24 Hour Vital Signs Date Time Temp Pulse Resp B/P (MAP) Pulse Ox O2 Delivery O2 Flow Rate FiO2 06/11/17 13:11 137/65 06/11/17 12:00 60 06/11/17 11:43 97.5 57 18 126/61 98 Room Air 06/11/17 09:00 55 06/11/17 08:47 104/65 06/11/17 08:00 56 06/11/17 08:00 97.7 59 20 104/58 98 Room Air 06/11/17 06:03 116/65 06/11/17 06:00 116/65 06/11/17 04:00 60 06/11/17 04:00 97.9 64 21 109/56 96 Room Air 06/11/17 00:33 132/64 06/11/17 00:00 54 06/11/17 00:00 97.7 57 20 121/62 99 Room Air 06/10/17 22:24 138/70 06/10/17 22:21 59 138/68 06/10/17 20:24 73 135/71 06/10/17 20:00 67 06/10/17 20:00 99.0 66 20 149/86 99 Room Air 06/10/17 17:24 107/58 06/10/17 17:20 107/63 06/10/17 16:00 64 18 137/68 95 Room Air 06/10/17 16:00 63 06/10/17 13:35 145/70 Laboratory Tests 06/11/17 06:40: White Blood Count 9.7, Red Blood Count 3.94L, Hemoglobin 9.7L, Hematocrit 31.4L , Mean Corpuscular Volume 80, Mean Corpuscular Hemoglobin 24.8L, Mean Corpuscular Hemoglobin Concent 31.1L, Red Cell Distribution Width 12.3, Platelet Count 206, Mean Platelet Volume 8.2, Neutrophils (%) (Auto) 75.8H, Lymphocytes (%) (Auto) 14.6L, Monocytes (%) (Auto) 7.1, Eosinophils (%) (Auto) 2.0, Basophils (%) (Auto) 0.5, Sodium Level 142, Potassium Level 4.3, Chloride Level 110H, Carbon Dioxide Level 25, Anion Gap 7, Blood Urea Nitrogen 31H, Creatinine 1.6H, Estimat Glomerular Filtration Rate , Glucose Level 148H, Calcium Level 9.1, Phosphorus Level 3.3, Total Bilirubin 0.2, Aspartate Amino Transf (AST/SGOT) 14L, Alanine Aminotransferase (ALT/SGPT) 16, Alkaline Phosphatase 52, Troponin I 0.057H, Total Protein 5.9L, Albumin 2.8L, Globulin 3.1, Albumin/Globulin Ratio 0.9L Height (Feet): 5 Height (Inches): 4.00 Weight (Pounds): 123 General Appearance: no apparent distress Cardiovascular: normal rate, regular rhythm Respiratory/Chest: decreased breath sounds Abdomen: soft ADINA GUARDADO Jun 11, 2017 13:32
[2017-06-11] MEDS ORDERED: Metoprolol Tartrate 12.5mg TAB ORAL SCH (21:00)
[2017-06-11] MEDS ORDERED: Metoclopramide 10mg/2ml Inj IVP PRN (21:30)
[2017-06-11] MEDS: cefTRIAXone 1 GM in NS 55 ML IVPB SCH (21:32)
[2017-06-11] MEDS: Donepezil 10mg tab ORAL SCH (21:32)
--- NOTE | 2017-06-11 21:32 | General Progress Note ---
Assessment/Plan Status: stable Subjective Date patient seen: Jun 11, 2017 Neurologic/Psychiatric: Reports: anxiety, depressed, emotional problems Allergies: Coded Allergies: No Known Allergies (Unverified , 06/10/17) Subjective episodes of agitation Objective Last 24 Hour Vital Signs Date Time Temp Pulse Resp B/P (MAP) Pulse Ox O2 Delivery O2 Flow Rate FiO2 06/11/17 16:22 97.2 60 18 135/60 99 Room Air 06/11/17 13:11 137/65 06/11/17 12:00 60 06/11/17 11:43 97.5 57 18 126/61 98 Room Air 06/11/17 09:00 55 06/11/17 08:47 104/65 06/11/17 08:00 56 06/11/17 08:00 97.7 59 20 104/58 98 Room Air 06/11/17 06:03 116/65 06/11/17 06:00 116/65 06/11/17 04:00 60 06/11/17 04:00 97.9 64 21 109/56 96 Room Air 06/11/17 00:33 132/64 06/11/17 00:00 54 06/11/17 00:00 97.7 57 20 121/62 99 Room Air 06/10/17 22:24 138/70 06/10/17 22:21 59 138/68 Intake and Output 06/11/17 06/12/17 19:00 07:00 # Voids 1 Laboratory Tests 06/11/17 06:40: White Blood Count 9.7, Red Blood Count 3.94L, Hemoglobin 9.7L, Hematocrit 31.4L , Mean Corpuscular Volume 80, Mean Corpuscular Hemoglobin 24.8L, Mean Corpuscular Hemoglobin Concent 31.1L, Red Cell Distribution Width 12.3, Platelet Count 206, Mean Platelet Volume 8.2, Neutrophils (%) (Auto) 75.8H, Lymphocytes (%) (Auto) 14.6L, Monocytes (%) (Auto) 7.1, Eosinophils (%) (Auto) 2.0, Basophils (%) (Auto) 0.5, Sodium Level 142, Potassium Level 4.3, Chloride Level 110H, Carbon Dioxide Level 25, Anion Gap 7, Blood Urea Nitrogen 31H, Creatinine 1.6H, Estimat Glomerular Filtration Rate , Glucose Level 148H, Calcium Level 9.1, Phosphorus Level 3.3, Total Bilirubin 0.2, Aspartate Amino Transf (AST/SGOT) 14L, Alanine Aminotransferase (ALT/SGPT) 16, Alkaline Phosphatase 52, Troponin I 0.057H, Total Protein 5.9L, Albumin 2.8L, Globulin 3.1, Albumin/Globulin Ratio 0.9L Height (Feet): 5 Height (Inches): 4.00 Weight (Pounds): 123 General Appearance: no apparent distress, lethargic, confused, agitated Neurologic: disoriented, unresponsive, depressed affect Caroline Gudino M.D. Jun 11, 2017 21:32
[2017-06-12 04:00] VITALS: BP 159/71
[2017-06-12] MEDS: GlipiZIDE 5mg tab ORAL SCH ×2 (06:09→11:41)
[2017-06-12] MEDS: HydrALAZINE 50mg tab ORAL SCH ×3 (06:10→22:28)
[2017-06-12] MEDS: NovoLOG Insulin Flexpen SUBQ SCH ×4 (06:15→21:06)
[2017-06-12 08:00] VITALS: BP 130/62
--- NOTE | 2017-06-12 08:37 | Cardiology Report ---
APPROVED REPORT EXAM: Two-dimensional and M-mode echocardiogram with Doppler and color Doppler. INDICATION Congestive Heart Failure M-Mode DIMENSIONS IVSd1.2 (0.7-1.1cm)Left Atrium (MM)4.2 (1.6-4.0cm) LVDd3.2 (3.5-5.6cm)Aortic Root3.1 (2.0-3.7cm) PWd1.3 (0.7-1.1cm)Aortic Cusp Exc.1.5 (1.5-2.0cm) LVDs1.9 (2.5-4.0cm) PWs1.3 cm Normal left ventricular chamber size, systolic function and wall motion. Left ventricular ejection fraction estimated to be 60%. No evidence of left ventricular hypertrophy. No evidence of pericardial effusion. All cardiac chamber sizes are within normal limits. Focal aortic valve sclerosis with adequate cusp excursion. Thickened mitral valve leaflets with normal excursion. Mitral annulus and aortic root calcification. Normal pulmonic valve structure. IVC at normal size with physiologic collapse. A color flow and spectral Doppler study was performed and revealed: Trace aortic regurgitation. Mild mitral regurgitation. Mitral diastolic velocities suggest reduced left ventricular relaxation c/w mild LV diastolic dysfunction (Grade I). Mild tricuspid regurgitation. Tricuspid systolic velocities suggests peak right ventricular systolic pressure of 49 mmHg, consistent with moderate pulmonary hypertension. Mild to moderate pulmonic regurgitation present.
--- NOTE | 2017-06-12 08:41 | Cardiology Report ---
APPROVED REPORT EKG Measurement Heart [id number] Normal sinus rhythm Nonspecific T wave abnormality Abnormal ECG
--- NOTE | 2017-06-12 08:41 | Cardiology Report ---
APPROVED REPORT EKG Measurement Heart [id number] NM [id number] Normal sinus rhythm Nonspecific T wave abnormality Abnormal ECG
[2017-06-12] MEDS ORDERED: Lisinopril 10mg tab ORAL SCH ×2 (09:00)
[2017-06-12] MEDS ORDERED: Metoprolol Tartrate 12.5mg TAB ORAL SCH (09:00)
[2017-06-12] MEDS: Docusate 100mg cap ORAL SCH ×3 (09:23→17:06)
[2017-06-12] MEDS: Metoprolol Tartrate 12.5mg TAB ORAL SCH (09:23)
[2017-06-12] MEDS: Aspirin EC 81mg tab ORAL SCH (09:23)
[2017-06-12] MEDS: Vitamin D 1000 IU Tab ORAL SCH (09:23)
--- NOTE | 2017-06-12 10:11 | Diagnostic Imaging Report ---
Indications: SOB Technique: IV administration 5.0 mCi 99m technetium macroaggregated albumin. Images obtained over the lungs in multiple projections. Previous, patient inhaled 40 mCi aerosolized 99M technetium DTPA. Images obtained over the lungs in multiple projections Comparison: Reference made to chest radiograph dated 06/09/2017 Findings: There is a matched subsegmental perfusion defect in the posterior inferior right lung. No other focal perfusion defects are demonstrated. No evidence of perfusion/aerosol mismatch Impression: Findings deemed low probability for pulmonary embolus A handwritten stat preliminary report was previously provided to the nursing unit through the PACS system when the exam was performed
[2017-06-12] MEDS: Heparin 5000 units/ml inj SUBQ SCH ×2 (11:40→21:05)
[2017-06-12 12:00] VITALS: BP 138/75
--- NOTE | 2017-06-12 12:14 | General Progress Note ---
Assessment/Plan Assessment/Plan status 1. Pcn-YF-tebzsbyta myocardial infarction. 2. Evidence of urinary tract infection. E coli 3. Renal failure and diabetic nephropathy. 4. Diabetes mellitus. 5. Evidence of dehydration. 6. History of anemia. 7. History of peripheral vascular disease. Plan: Rocephin- beta elbert BP meds BS control per orders med surg DC in am on orals Subjective ROS Limited/Unobtainable: No Constitutional: Reports: malaise, weakness Allergies: Coded Allergies: No Known Allergies (Unverified , 06/10/17) Objective Last 24 Hour Vital Signs Date Time Temp Pulse Resp B/P (MAP) Pulse Ox O2 Delivery O2 Flow Rate FiO2 06/12/17 09:23 71 130/62 06/12/17 09:22 130/62 06/12/17 08:00 97.7 71 17 130/62 98 Room Air 06/12/17 06:10 159/71 06/12/17 04:00 98.6 65 18 159/71 92 Room Air 06/11/17 23:25 98.6 73 18 143/78 95 Room Air 06/11/17 22:00 154/78 06/11/17 20:00 98.9 62 20 130/65 96 Room Air 06/11/17 16:22 97.2 60 18 135/60 99 Room Air 06/11/17 13:11 137/65 Height (Feet): 5 Height (Inches): 4.00 Weight (Pounds): 123 General Appearance: no apparent distress Cardiovascular: normal rate Respiratory/Chest: lungs clear Abdomen: soft ADINA GUARDADO Jun 12, 2017 12:14
--- NOTE | 2017-06-12 14:15 | Diagnostic Imaging Report ---
Indications: DYSPHAGIA Technique: Patient ingested multiple substances under the supervision of speech pathology. Video fluoroscopic recording performed. Total fluoroscopy time in the seconds. Total dose area product 0.1371 mGycm2 Comparison: none Findings: Ingestion of thin and nectar thick liquid barium demonstrates early pooling in the vallecula, good clearance with swallowing, no aspiration or penetration. Ingestion of barium pur?e is uneventful Impression: Negative for evidence of aspiration or penetration. Please refer to speech pathology report for more detailed analysis
[2017-06-12 15:55] VITALS: BP 159/82
--- NOTE | 2017-06-12 16:50 | Cardiology Report ---
APPROVED REPORT EKG Measurement Heart [id number] DC [id number] Normal sinus rhythm Low voltage QRS Cannot rule out Anterior infarct, age undetermined Abnormal ECG
[2017-06-12 19:55] VITALS: BP 150/73
[2017-06-12] MEDS ORDERED: Epogen (for non ESRD use) SUBQ SCH ×2 (21:00)
[2017-06-12] MEDS: Donepezil 10mg tab ORAL SCH (21:04)
[2017-06-12] MEDS: cefTRIAXone 1 GM in NS 55 ML IVPB SCH (22:26)
--- NOTE | 2017-06-12 23:57 | General Progress Note ---
Assessment/Plan Status: stable Subjective Neurologic/Psychiatric: Reports: anxiety, emotional problems Allergies: Coded Allergies: No Known Allergies (Unverified , 06/10/17) Subjective episodes of agitation Objective Last 24 Hour Vital Signs Date Time Temp Pulse Resp B/P (MAP) Pulse Ox O2 Delivery O2 Flow Rate FiO2 06/12/17 22:28 150/73 06/12/17 20:00 97.5 06/12/17 19:55 64 20 150/73 99 Room Air 06/12/17 15:55 98.4 66 18 159/82 98 Room Air 06/12/17 13:32 138/75 06/12/17 12:00 97.3 72 21 138/75 99 Room Air 06/12/17 09:23 71 130/62 06/12/17 09:22 130/62 06/12/17 08:00 97.7 71 17 130/62 98 Room Air 06/12/17 06:10 159/71 06/12/17 04:00 98.6 65 18 159/71 92 Room Air Intake and Output 06/12/17 06/13/17 19:00 07:00 Intake Total 120 ml Balance 120 ml Intake Oral 120 ml # Voids 2 Height (Feet): 5 Height (Inches): 4.00 Weight (Pounds): 123 General Appearance: no apparent distress, confused Neurologic: alert, responsive, disoriented, depressed affect Caroline Gudino M.D. Jun 12, 2017 23:57
[2017-06-13 00:14] VITALS: BP 148/74
[2017-06-13 04:32] VITALS: BP 144/73
[2017-06-13] MEDS: HydrALAZINE 50mg tab ORAL SCH ×2 (06:10→14:00)
[2017-06-13] MEDS: GlipiZIDE 5mg tab ORAL SCH ×2 (06:10→11:39)
[2017-06-13] MEDS: NovoLOG Insulin Flexpen SUBQ SCH ×2 (06:11→11:40)
[2017-06-13 07:17] LABS: BASOPHILS % (AUTO) 0.6 % (0.0-2.0); EOSINOPHILS % (AUTO) 4.1 % (0.0-3.0); LYMPHOCYTES % (AUTO) 14.4 % (20.0-45.0); MEAN CORPUSCULAR HEMOGLOBIN 23.8 PG (27.0-31.0); MEAN CORPUSCULAR HGB CONC 30.4 G/DL (32.0-36.0); MEAN CORPUSCULAR VOLUME 78 FL (80-99); MEAN PLATELET VOLUME 8.4 FL (6.5-10.1); NEUTROPHILS % (AUTO) 73.9 % (45.0-75.0); PLATELET COUNT 252 K/UL (150-450); RED BLOOD COUNT 4.84 M/UL (4.20-5.40); RED CELL DISTRIBUTION WIDTH 11.8 % (11.6-14.8)
[2017-06-13 07:22] LABS: ALANINE AMINOTRANSFERASE 26 U/L (12-78); ALBUMIN/GLOBULIN RATIO 0.8 (1.0-2.7); ANION GAP 9 mmol/L (5-15); ASPARTATE AMINO TRANSFERASE 22 U/L (15-37); CALCIUM 9.8 MG/DL (8.5-10.1); CARBON DIOXIDE 25 MMOL/L (21-32); CHLORIDE 108 MMOL/L (98-107); CREATININE 1.5 MG/DL (0.55-1.30); CRP QUANT 0.9 mg/dL (0.00-0.90); MAGNESIUM 2.1 MG/DL (1.8-2.4); PHOSPHORUS 3.8 MG/DL (2.5-4.9); POTASSIUM 4.6 MMOL/L (3.5-5.1); SODIUM 142 MMOL/L (136-145); TOTAL PROTEIN 7.3 G/DL (6.4-8.2); URIC ACID 6.3 MG/DL (2.6-7.2)
[2017-06-13 08:00] VITALS: BP 154/77
[2017-06-13] MEDS: Vitamin D 1000 IU Tab ORAL SCH (08:39)
[2017-06-13] MEDS: Docusate 100mg cap ORAL SCH ×2 (08:39→14:11)
[2017-06-13] MEDS: Metoprolol Tartrate 12.5mg TAB ORAL SCH (08:40)
[2017-06-13] MEDS: Aspirin EC 81mg tab ORAL SCH (08:40)
--- NOTE | 2017-06-13 08:48 | General Progress Note ---
Assessment/Plan Status: stable Assessment/Plan status 1. [id number] myocardial infarction. 2. Evidence of urinary tract infection. E coli 3. Renal failure and diabetic nephropathy. 4. Diabetes mellitus. 5. Evidence of dehydration. 6. History of anemia. 7. History of peripheral vascular disease. 8. Aspiration percautions Plan: Rocephin- change to Bactrim and DC beta elbert BP meds BS control, adjust per orders DC Subjective ROS Limited/Unobtainable: No Constitutional: Reports: malaise Allergies: Coded Allergies: No Known Allergies (Unverified , 06/10/17) Objective Last 24 Hour Vital Signs Date Time Temp Pulse Resp B/P (MAP) Pulse Ox O2 Delivery O2 Flow Rate FiO2 06/13/17 08:00 97.8 72 19 154/77 98 Room Air 06/13/17 06:10 144/73 06/13/17 04:32 97.3 75 18 144/73 99 Room Air 06/13/17 00:14 97.7 72 18 148/74 98 Room Air 06/12/17 22:28 150/73 06/12/17 20:00 97.5 06/12/17 19:55 64 20 150/73 99 Room Air 06/12/17 15:55 98.4 66 18 159/82 98 Room Air 06/12/17 13:32 138/75 06/12/17 12:00 97.3 72 21 138/75 99 Room Air 06/12/17 09:23 71 130/62 06/12/17 09:22 130/62 Current Medications Medications (Trade) Dose Ordered Sig/Nancy Route PRN Reason Start Time Stop Time Status Last Admin Dose Admin Acetaminophen (Tylenol) 650 mg Q4H PRN ORAL Fever/Headache/Mild Pain 06/11/17 21:00 07/09/17 20:59 Aspirin (Ecotrin) 81 mg DAILY ORAL 06/12/17 09:00 07/12/17 08:59 06/12/17 09:23 Atorvastatin Calcium (Lipitor) 10 mg BEDTIME ORAL 06/11/17 21:00 07/10/17 20:59 06/12/17 21:04 Ceftriaxone Sodium 1 gm/ Sodium Chloride 55 ml @ 110 mls/hr Q24HRS IVPB 06/11/17 21:00 06/17/17 20:59 06/12/17 22:26 Dextrose (Dextrose 50%) STAT PRN IV Hypoglycemia 06/11/17 21:00 07/11/17 20:59 Docusate Sodium (Colace) 100 mg TID ORAL 06/12/17 09:00 07/10/17 08:59 06/12/17 17:06 Donepezil HCl (Aricept) 10 mg QHS ORAL 06/11/17 21:00 07/09/17 20:59 06/12/17 21:04 Epoetin Oziel (Procrit (for non ESRD use)) 7,000 units SAT-SAT-SAT SUBQ 06/12/17 21:00 07/12/17 20:59 06/12/17 21:06 Glipizide (Glucotrol) 5 mg BIDBL ORAL 06/12/17 06:30 07/10/17 06:29 06/13/17 06:10 Heparin Sodium (Porcine) (Heparin 5000 units/ml) 5,000 units EVERY 12 HOURS SUBQ 06/12/17 12:00 07/12/17 11:59 06/12/17 21:05 Hydralazine HCl (Apresoline) 50 mg Q8HR ORAL 06/11/17 22:00 07/09/17 21:59 06/13/17 06:10 Insulin Aspart (NovoLOG) BEFORE MEALS AND HS SUBQ 06/11/17 21:30 07/10/17 21:29 06/13/17 06:11 Lisinopril (Zestril) 10 mg DAILY ORAL 06/12/17 09:00 07/10/17 08:59 06/12/17 09:22 Metoclopramide HCl (Reglan) 5 mg BEFORE MEALS ORAL 06/12/17 06:30 07/10/17 06:29 06/13/17 06:10 Metoclopramide HCl (Reglan) 5 mg Q6H PRN IVP Nausea & Vomiting 06/11/17 21:30 07/09/17 21:29 Metoprolol Tartrate (Lopressor) 12.5 mg DAILY ORAL 06/12/17 09:00 07/11/17 20:59 06/12/17 09:23 Vitamin D (Vitamin D) 1,000 intlu DAILY ORAL 06/12/17 09:00 07/10/17 08:59 06/12/17 09:23 Laboratory Tests 06/13/17 05:05: White Blood Count 8.0, Red Blood Count 4.84, Hemoglobin 11.5L, Hematocrit 37.9, Mean Corpuscular Volume 78L, Mean Corpuscular Hemoglobin 23.8L, Mean Corpuscular Hemoglobin Concent 30.4L, Red Cell Distribution Width 11.8, Platelet Count 252, Mean Platelet Volume 8.4, Neutrophils (%) (Auto) 73.9, Lymphocytes (%) (Auto) 14.4L, Monocytes (%) (Auto) 7.0, Eosinophils (%) (Auto) 4.1H, Basophils (%) (Auto) 0.6, Sodium Level 142, Potassium Level 4.6, Chloride Level 108H, Carbon Dioxide Level 25, Anion Gap 9, Blood Urea Nitrogen 24H, Creatinine 1.5H, Estimat Glomerular Filtration Rate , Glucose Level 156H, Uric Acid 6.3, Calcium Level 9.8, Phosphorus Level 3.8, Magnesium Level 2.1, Total Bilirubin 0.2, Aspartate Amino Transf (AST/SGOT) 22, Alanine Aminotransferase ( ALT/SGPT) 26, Alkaline Phosphatase 67, C-Reactive Protein, Quantitative 0.9, Pro -B-Type Natriuretic Peptide 1729H, Total Protein 7.3, Albumin 3.2L, Globulin 4.1 , Albumin/Globulin Ratio 0.8L Height (Feet): 5 Height (Inches): 4.00 Weight (Pounds): 123 General Appearance: no apparent distress Cardiovascular: normal rate Respiratory/Chest: lungs clear Abdomen: soft Objective PE not changed ADINA GUARDADO Jun 13, 2017 08:48
[2017-06-13] MEDS: Heparin 5000 units/ml inj SUBQ SCH (08:50)
[2017-06-13] MEDS ORDERED: BACTRIM SINGLE S1 EA ORAL (08:51)
[2017-06-13] MEDS ORDERED: LOPRESSOR25 M1 ORAL (08:51)
[2017-06-13] MEDS ORDERED: ASPIRIN EC81 MG ORAL (08:51)
--- NOTE | 2017-06-13 08:52 | Discharge Instructions ---
Discharge Instructions Discharge Instructions Follow Up Orders with myself at [facility] Special Instructions Aspiration percautions For Congestive Heart Failure Reminder Report to your physician any weight gain of 5 pounds or more in one week. ADINA GUARDADO Jun 13, 2017 08:52
[2017-06-13] MEDS ORDERED: Lisinopril 10mg tab ORAL ONE (09:05)
[2017-06-13] MEDS ORDERED: Bactrim SS Tab ORAL SCH (09:30)
[2017-06-13] MEDS ORDERED: cefTRIAXone 1 GM in NS 55 ML IVPB ONE (10:00)
[2017-06-13 12:00] VITALS: BP 119/70
--- NOTE | 2017-06-13 16:51 | Diagnostic Imaging Report ---
APPROVED REPORT CPT Code: 74028 Present Symptoms Comments: R/O DVT Hx of Pleural effusion BILATERAL: Imaging reveals a patent deep venous system bilaterally. There is no evidence of thrombus within the femoral, popliteal or tibial segments. The greater saphenous veins are also within normal limits. Doppler indicates normal spontaneous flow within these segments.
[2017-06-14] MEDS ORDERED: Lisinopril 20mg tab ORAL SCH (09:00)
--- NOTE | 2017-06-14 09:42 | Discharge Summary ---
Discharge Summary Hospital Course Date of Admission Jun 10, 2017 at 03:05 Date of Discharge Jun 13, 2017 at 14:00 Admitting Diagnosis NSTEMI HPI Tanya Chrystal Padilla is a 76 year old female who was admitted on Jun 10, 2017 at 03:05 for Nstemi Hospital Course [id number] Discharge Discharge Disposition Patient was discharged to [facility] (04) Discharge Diagnoses: Rachelle Gray NP Jun 14, 2017 09:42
--- NOTE | 2017-06-14 18:02 | General Progress Note ---
Assessment/Plan Status: stable, progressing Subjective Date patient seen: Jun 13, 2017 Neurologic/Psychiatric: Reports: anxiety, depressed, emotional problems Allergies: Coded Allergies: No Known Allergies (Unverified , 06/10/17) Subjective episodes of agitation Objective Height (Feet): 5 Height (Inches): 4.00 Weight (Pounds): 123 General Appearance: no apparent distress, lethargic, confused Caroline Gudino M.D. Jun 14, 2017 18:02
--- NOTE | 2017-06-15 01:46 | Discharge Summary 2 SIG ---
DATE OF ADMISSION: 06/10/2017 DATE OF DISCHARGE: 06/13/2017 CONSULTANTS: 1. Caroline Gudino M.D. 2. Sigifredo Nash M.D. BRIEF HOSPITAL COURSE: The patient is a 76-year-old female, who is a resident of [facility]. The patient was found to have high blood pressure and high blood sugar at the [facility] and had one episode of vomiting. She was brought in to emergency room at [facility] for further evaluation. She has history of diabetes mellitus, dementia, anemia, gastroesophageal reflux disease, and hypertension. On evaluation at ED, blood pressure was 183/96. EKG was in normal sinus rhythm with no acute changes. Chest x-ray showed increased markings bilaterally. Blood work showed elevated troponin 0.113 and BNP was 1508. Creatinine was 1.8, BUN of 40, and glucose level was 361. She was admitted to telemetry for evaluation of non-ST elevated myocardial infarction, hyperglycemia, hypertension, renal insufficiency, and urinary tract infection. Urine WBC with 15 to 20 and urine RBC 2 to 4 with 2+ leukocyte esterase and negative nitrites. She was started on Rocephin and was given aspirin, metoprolol, lisinopril, and hydralazine. Cholesterol panel was checked and was continued on Lipitor 10 mg at bedtime. She underwent cardiac evaluation. Cardiac enzymes were minimally abnormal. There was no significant peak or shamir. Echocardiogram done showed ejection fraction 60% with chamber sizes within normal limits. There was trace aortic regurgitation, mild mitral regurgitation, mild tricuspid regurgitation, and right ventricular systolic pressure of 49 consistent with moderate pulmonary hypertension. She underwent a ventilation/perfusion scan that showed low probability for pulmonary embolism. Venous duplex of lower extremity was negative for DVT. Urine culture showed growth of E. coli. She was continued on Rocephin. Blood sugars were monitored and was given NovoLog sliding scale and was continued on metformin 500 mg b.i.d. before meals. She had episodes of agitation and was given Aricept 10 mg at bedtime. She was anemic. Anemia workup done showed anemia of chronic disease. She was given Procrit injections. Ceftriaxone was discontinued. The patient was cleared for discharge to continue p.o. Bactrim as outpatient. FINAL DIAGNOSES: 1. Non-ST elevated myocardial infarction. 2. Urinary tract infection with Escherichia coli. 3. Renal failure and diabetic nephropathy. 4. Diabetes mellitus. 5. Dehydration. 6. Anemia. 7. Peripheral vascular disease. 8. At risk for aspiration. DISPOSITION: The patient was discharged back to [facility]. DISCHARGE MEDICATIONS: Refer to medication list. Continue Bactrim 400/80 mg one tab q.12 hours for seven more days. Mohsen Ortiz M.D. I have been assigned to dictate discharge summary on this account and I was not involved in the patient's management. Rachelle Gray N.P. DR: CLAUDETTE JOB#: [id number] CC: ROSE
== END 2017-06-13 14:00 | DRG 280 ==
LOC: EDBD 16:11 → EDUNIT# 16:11 → EMR 16:40 → EDBEDREQ 06-10 02:56 → 2E 06-10 03:05 → 4W 06-11 21:02
DX: I21.4 Non-ST elevation (NSTEMI) myocardial infarction (principal); G93.40 Encephalopathy, unspecified; I50.32 Chronic diastolic (congestive) heart failure; I11.0 Hypertensive heart disease with heart failure; F03.90 Unspecified dementia, unspecified severity, without behavioral disturbance, psychotic disturbance, mood disturbance, and anxiety; E11.21 Type 2 diabetes mellitus with diabetic nephropathy; N39.0 Urinary tract infection, site not specified; E86.0 Dehydration; K21.9 Gastro-esophageal reflux disease without esophagitis; I73.9 Peripheral vascular disease, unspecified; E11.51 Type 2 diabetes mellitus with diabetic peripheral angiopathy without gangrene; E11.42 Type 2 diabetes mellitus with diabetic polyneuropathy; N28.9 Disorder of kidney and ureter, unspecified; B96.20 Unspecified Escherichia coli [E. coli] as the cause of diseases classified elsewhere; D63.8 Anemia in other chronic diseases classified elsewhere; E11.65 Type 2 diabetes mellitus with hyperglycemia; Z79.84 Long term (current) use of oral hypoglycemic drugs
CPT/HCPCS: 36415; 71010; 74230; 78579; 78580; 80053; 80061; 81003; 82550; 82607; 82728; 82746; 82962; 82977; 83036; 83540; 83550; 83690; 83735; 83880; 84100; 84443; 84484; 84550; 85025; 85610; 85730; 86140; 87081; 87086; 87181; 93005; 93306; 93970; A9503; J1815; J2765

== ENCOUNTER 2017-06-21 13:51 | Inpatient (IN) | payer MEDICARE, OTHER ==
[~2017-06-21] VITALS: Ht 160 cm; Wt 56.7 kg
--- NOTE | 2017-06-21 13:49 | Emergency Room Report ---
History of Present Illness General Chief Complaint: Abnormal Labs Source: Medical Record, EMS Present Illness HPI Patient is a 76-year-old female sent in by care home for abnormal laboratory tests. Patient was noted to have elevated potassium. Patient was also noted to have some elevation of BUN/creatinine. Patient was sent from [facility]. The patient denies any complaints at this time. History is limited by patient's mental status Allergies: Coded Allergies: No Known Allergies (Unverified , 06/10/17) Patient History Past Medical History: see triage record Reviewed Nursing Documentation: PMH: Agreed, PSxH: Agreed Nursing Documentation-PMH Past Medical History Deferred: Pt Cognitively Impaired Review of Systems All Other Systems: limited - by mental status Physical Exam Sp02 EP Interpretation: reviewed, normal General Appearance: normal inspection, well appearing, no apparent distress, alert Head: atraumatic ENT: normal ENT inspection, hearing grossly normal, normal voice Neck: normal inspection, supple, no bony tend, limited range of motion Respiratory: normal inspection, lungs clear, normal breath sounds, no respiratory distress, no retraction, no wheezing Cardiovascular #1: regular rate, rhythm, no edema Gastrointestinal: normal inspection, normal bowel sounds, non tender, soft, no guarding, no hernia Genitourinary: no CVA tenderness Musculoskeletal: normal inspection, back normal, normal range of motion Neurologic: alert, responsive, speech normal, aphasia, motor weakness, oriented - to name Psychiatric: normal inspection, mood/affect normal Skin: normal inspection, normal color, no rash Medical Decision Making Diagnostic Impression: Primary Impression: Renal failure (ARF), acute on chronic Additional Impressions: Hyperkalemia Diabetes ER Course Patient presented for abnormal laboratory values. The differential diagnosis included was not limited to laboratory error, renal failure, diuretic use, potassium supplementation among others.Because of complexity of patient's case laboratory testing and imaging studies were ordered.A repeat laboratory studies showed evidence of acute renal failure continued hyperkalemia. The patient was given IV fluids as well as oral Kayexalate. patient was given insulin for hyperglycemia. Patient was noted be taking RAMAN inhibitor. Dr. Mohsen Ortiz was contacted for inpatient management due to primary care physician. Labs Test 06/21/17 14:16 06/21/17 14:45 White Blood Count 8.3 K/UL (4.8-10.8) Red Blood Count 4.64 M/UL (4.20-5.40) Hemoglobin 11.2 G/DL (12.0-16.0) Hematocrit 36.6 % (37.0-47.0) Mean Corpuscular Volume 79 FL (80-99) Mean Corpuscular Hemoglobin 24.1 PG (27.0-31.0) Mean Corpuscular Hemoglobin Concent 30.6 G/DL (32.0-36.0) Red Cell Distribution Width 13.1 % (11.6-14.8) Platelet Count 332 K/UL (150-450) Mean Platelet Volume 7.0 FL (6.5-10.1) Neutrophils (%) (Auto) 80.8 % (45.0-75.0) Lymphocytes (%) (Auto) 10.7 % (20.0-45.0) Monocytes (%) (Auto) 7.4 % (1.0-10.0) Eosinophils (%) (Auto) 0.4 % (0.0-3.0) Basophils (%) (Auto) 0.7 % (0.0-2.0) Sodium Level 139 MMOL/L (136-145) Potassium Level 5.7 MMOL/L (3.5-5.1) Chloride Level 105 MMOL/L (98-107) Carbon Dioxide Level 25 MMOL/L (21-32) Anion Gap 9 mmol/L (5-15) Blood Urea Nitrogen 30 mg/dL (7-18) Creatinine 2.4 MG/DL (0.55-1.30) Estimat Glomerular Filtration Rate mL/min (>60) Glucose Level 333 MG/DL (74-106) Lactic Acid Level 1.40 mmol/L (0.66-2.22) Calcium Level 9.9 MG/DL (8.5-10.1) Phosphorus Level 4.1 MG/DL (2.5-4.9) Magnesium Level 2.3 MG/DL (1.8-2.4) Total Bilirubin 0.2 MG/DL (0.2-1.0) Aspartate Amino Transf (AST/SGOT) 11 U/L (15-37) Alanine Aminotransferase (ALT/SGPT) 15 U/L (12-78) Alkaline Phosphatase 68 U/L (46-116) Total Creatine Kinase 60 U/L (26-308) Creatine Kinase MB 1.8 NG/ML (0.0-3.6) Creatine Kinase MB Relative Index 3.0 Troponin I 0.038 ng/mL (0.000-0.056) Total Protein 7.6 G/DL (6.4-8.2) Albumin 3.3 G/DL (3.4-5.0) Globulin 4.3 g/dL Albumin/Globulin Ratio 0.8 (1.0-2.7) Lipase 150 U/L (73-393) Urine Color Pale yellow Urine Appearance Clear Urine pH 5 (4.5-8.0) Urine Specific [place] 1.015 (1.005-1.035) Urine Protein 3+ (NEGATIVE) Urine Glucose (UA) 4+ (NEGATIVE) Urine Ketones Negative (NEGATIVE) Urine Occult Blood Negative (NEGATIVE) Urine Nitrite Negative (NEGATIVE) Urine Bilirubin Negative (NEGATIVE) Urine Urobilinogen Normal MG/DL (0.0-1.0) Urine Leukocyte Esterase 1+ (NEGATIVE) EKG Diagnostic Results Rate: normal - 9 Rhythm: NSR ST Segments: no acute changes ASA given to the pt in ED: No Rhythm Strip Diag. Results EP Interpretation: yes Rhythm: NSR - 62, no PVC's, no ectopy Status: unchanged Disposition: ADMITTED INPATIENT Condition: Darrion Lawton Jun 21, 2017 13:49
[~2017-06-21 13:51] MED LIST changes: +ASPIRIN EC81 MG ORAL; +BACTRIM SINGLE S1 EA ORAL; +DONEPEZIL HCL10 M2 ORAL; +FERROUS SULFAT325 MG ORAL; +LOPRESSOR25 M1 ORAL; +NAMENDA5 MG ORAL; +OMEPRAZOLE20 M2 ORAL; +VITAMIN C500 M1 ORAL
[2017-06-21 14:15] VITALS: BP 157/63
[2017-06-21 14:35] LABS: BASOPHILS % (AUTO) 0.7 % (0.0-2.0); EOSINOPHILS % (AUTO) 0.4 % (0.0-3.0); LYMPHOCYTES % (AUTO) 10.7 % (20.0-45.0); MEAN CORPUSCULAR HEMOGLOBIN 24.1 PG (27.0-31.0); MEAN CORPUSCULAR HGB CONC 30.6 G/DL (32.0-36.0); MEAN CORPUSCULAR VOLUME 79 FL (80-99); MONOCYTES % (AUTO) 7.4 % (1.0-10.0); NEUTROPHILS % (AUTO) 80.8 % (45.0-75.0); PLATELET COUNT 332 K/UL (150-450); RED BLOOD COUNT 4.64 M/UL (4.20-5.40); RED CELL DISTRIBUTION WIDTH 13.1 % (11.6-14.8); WHITE BLOOD COUNT 8.3 K/UL (4.8-10.8)
[2017-06-21 14:53] LABS: ANION GAP 9 mmol/L (5-15); CALCIUM 9.9 MG/DL (8.5-10.1); CARBON DIOXIDE 25 MMOL/L (21-32); CHLORIDE 105 MMOL/L (98-107); CREATININE 2.4 MG/DL (0.55-1.30); POTASSIUM 5.7 MMOL/L (3.5-5.1); SODIUM 139 MMOL/L (136-145)
[2017-06-21 14:55] LABS: APPEARANCE,URINE CLEAR; KETONES,URINE NEGATIVE (NEGATIVE); LEUKOCYTE ESTERASE ,URINE 1+ (NEGATIVE); NITRITE,URINE NEGATIVE (NEGATIVE); PH,URINE 5 (4.5-8.0); PROTEIN,URINE 3+ (NEGATIVE); UROBILINOGEN,URINE NORMAL MG/DL (0.0-1.0)
[2017-06-21] MEDS ORDERED: Sodium Polystyrene Sulfonate 15gm Powder ORAL ONE (15:00)
[2017-06-21] MEDS ORDERED: ACETAMINOPHEN325 M1 ORAL (15:02)
[2017-06-21 15:10] LABS: ALANINE AMINOTRANSFERASE 15 U/L (12-78); ALBUMIN/GLOBULIN RATIO 0.8 (1.0-2.7); ASPARTATE AMINO TRANSFERASE 11 U/L (15-37); CKMB 1.8 NG/ML (0.0-3.6); LIPASE 150 U/L (73-393); MAGNESIUM 2.3 MG/DL (1.8-2.4); PHOSPHORUS 4.1 MG/DL (2.5-4.9); TOTAL PROTEIN 7.6 G/DL (6.4-8.2)
[2017-06-21 15:34] LABS: AMORPHOUS SEDIMENT,UR FEW /LPF; BACTERIA,URINE FEW /HPF; SQUAMOUS EPITHELIAL CELL,UR FEW /LPF (NONE/OCC)
--- NOTE | 2017-06-21 15:57 | History & Physical ---
History and Physical History & Physicial acute renal failure cr 1.5 to 2.4 HyperKalemia Hyperglycemia UTI PH 1. [id number] ion myocardial infarction. 2. Evidence of urinary tract infection. E coli 3. Renal failure and diabetic nephropathy. 4. Diabetes mellitus. 5. Evidence of dehydration. 6. History of anemia. 7. History of peripheral vascular disease. 8. Aspiration percautions Hydrate BS control Monitor lytes BP in check [facility] # [id number] ADINA GUARDADO Jun 21, 2017 15:57
[2017-06-21 16:20] VITALS: BP 138/61
[2017-06-21 17:19] VITALS: BP 141/71
[2017-06-21] MEDS: Docusate 100mg cap ORAL SCH (18:21)
[2017-06-21] MEDS: Albuterol ud Inhalation HHN SCH (19:24)
[2017-06-21] MEDS: NovoLOG Insulin Flexpen SUBQ SCH (21:00)
[2017-06-21] MEDS: Donepezil 5mg Tab ORAL SCH (21:07)
[2017-06-21] MEDS: Heparin 5000 units/ml inj SUBQ SCH (21:08)
[2017-06-21] MEDS: HydrALAZINE 50mg tab ORAL SCH (21:38)
[2017-06-22 00:21] VITALS: BP 128/60
[2017-06-22 04:46] VITALS: BP 126/58
[2017-06-22] MEDS: HydrALAZINE 50mg tab ORAL SCH ×4 (06:00→22:13)
[2017-06-22] MEDS: NovoLOG Insulin Flexpen SUBQ SCH ×4 (06:28→22:11)
[2017-06-22] MEDS: Albuterol ud Inhalation HHN SCH ×4 (07:00→19:23)
[2017-06-22 08:00] VITALS: BP 127/52
[2017-06-22 08:03] LABS: BASOPHILS % (AUTO) 0.8 % (0.0-2.0); EOSINOPHILS % (AUTO) 2.6 % (0.0-3.0); LYMPHOCYTES % (AUTO) 15.6 % (20.0-45.0); MEAN CORPUSCULAR HGB CONC 30.6 G/DL (32.0-36.0); MEAN CORPUSCULAR VOLUME 78 FL (80-99); MEAN PLATELET VOLUME 6.3 FL (6.5-10.1); MONOCYTES % (AUTO) 6.6 % (1.0-10.0); NEUTROPHILS % (AUTO) 74.4 % (45.0-75.0); PLATELET COUNT 265 K/UL (150-450); RED BLOOD COUNT 3.99 M/UL (4.20-5.40); RED CELL DISTRIBUTION WIDTH 13.2 % (11.6-14.8); WHITE BLOOD COUNT 7.5 K/UL (4.8-10.8)
[2017-06-22 08:35] LABS: HEMOGLOBIN A1C 9.1 % (4.3-6.0)
[2017-06-22 08:51] LABS: ALANINE AMINOTRANSFERASE 15 U/L (12-78); ALBUMIN/GLOBULIN RATIO 0.8 (1.0-2.7); ANION GAP 8 mmol/L (5-15); ASPARTATE AMINO TRANSFERASE 13 U/L (15-37); CALCIUM 8.9 MG/DL (8.5-10.1); CARBON DIOXIDE 23 MMOL/L (21-32); CHLORIDE 108 MMOL/L (98-107); CHOLESTEROL 148 MG/DL (< 200); CHOLESTEROL/HDL RATIO 3.2 (3.3-4.4); CREATININE 1.9 MG/DL (0.55-1.30); CRP QUANT < 0.4 mg/dL (0.00-0.90); FERRITIN 290 NG/ML (8-388); MAGNESIUM 1.9 MG/DL (1.8-2.4); PHOSPHORUS 4.6 MG/DL (2.5-4.9); POTASSIUM 4.2 MMOL/L (3.5-5.1); SODIUM 139 MMOL/L (136-145); THYROID STIMULATING HORMONE 1.352 uiU/mL (0.358-3.740); TOTAL PROTEIN 6.1 G/DL (6.4-8.2); URIC ACID 6.3 MG/DL (2.6-7.2)
[2017-06-22 08:52] LABS: IRON 44 ug/dL (50-175); TOTAL IRON BINDING CAPACITY 135 ug/dL (250-450)
[2017-06-22] MEDS: Aspirin EC 81mg tab ORAL SCH (08:59)
[2017-06-22] MEDS: Docusate 100mg cap ORAL SCH ×3 (09:00→17:16)
[2017-06-22] MEDS: Heparin 5000 units/ml inj SUBQ SCH ×3 (09:00→22:17)
[2017-06-22] MEDS ORDERED: Metoprolol Succinate XL 25mg tab ORAL SCH (09:00)
--- NOTE | 2017-06-22 09:49 | Consultation ---
History of Present Illness General Date patient seen: Jun 22, 2017 Chief Complaint: Abnormal Labs Referring physician: Dr. Ortiz Reason for Consultation: Inpatient management Present Illness HPI 76-year-old female with hx of HTN, DM, Dementia, PVD sent in by intermediate for abnormal elevated potassium. Patient was also noted to have some elevation of BUN/creatinine. The patient denies any complaints at this time. She looks comfortable and doesn't seem to be in any acute distress. She doesn't know why she is in hospital. Allergies: Coded Allergies: No Known Allergies (Unverified , 06/10/17) Medication History Scheduled Ascorbic Acid* (Vitamin C*), 500 MG ORAL DAILY, (Reported) Aspirin Ec* (Aspirin Ec*), 81 MG ORAL DAILY Cholecalciferol (Vitamin D3)* (Vitamin D*), 1,000 UNIT ORAL DAILY, (Reported) Cholecalciferol (Vitamin D3)* (Vitamin D*), 1,000 UNIT ORAL DAILY, (Reported) Docusate Sodium* (Colace*), 100 MG ORAL BID Docusate Sodium* (Colace*), 100 MG ORAL TID Donepezil Hcl* (Donepezil Hcl*), 5 MG ORAL QHS, (Reported) Donepezil Hcl* (Aricept*), 10 MG ORAL QHS Donepezil Hcl* (Donepezil Hcl*), 10 MG ORAL HS, (Reported) Ferrous Sulfate* (Ferrous Sulfate*), 325 MG ORAL THREE TIMES A DAY, (Reported) Glimepiride* (Glimepiride*), 1 MG ORAL BEFORE BREAKFAST, (Reported) Glipizide* (Glipizide*), 5 MG ORAL BIDBL Hydralazine HCl (Hydralazine HCl), 50 MG ORAL Q8HR Levofloxacin* (Levaquin*), 250 MG ORAL DAILY Lisinopril* (Prinivil*), 10 MG ORAL DAILY, (Reported) Lisinopril* (Lisinopril*), 20 MG ORAL BID Memantine Hcl* (Namenda*), 5 MG ORAL TWICE A DAY, (Reported) Metformin Hcl* (Metformin Hcl*), 500 MG ORAL TWICE A DAY, (Reported) Metoclopramide Hcl* (Reglan*), 5 MG ORAL BEFORE MEALS Metoprolol Tartrate (Metoprolol Tartrate), 12.5 MG ORAL DAILY Multivitamin (Multivitamins), 1 EACH PO DAILY, (Reported) Omeprazole (Omeprazole), 20 MG ORAL DAILY, (Reported) Pantoprazole* (Protonix*), 40 MG ORAL BID Pyridoxine HCl (Pyridoxine HCl), 50 MG ORAL DAILY Sertraline Hcl* (Sertraline Hcl*), 50 MG ORAL DAILY, (Reported) Trimethoprim/Sulfamethoxazole (Bactrim 400-80 mg Tablet), 1 EA ORAL EVERY 12 HOURS Scheduled PRN Acetaminophen* (Acetaminophen 325MG Tablet*), 650 MG ORAL Q6H PRN for For Pain Acetaminophen* (Acetaminophen 325MG Tablet*), 650 MG ORAL Q4H PRN for Fever/ Headache/Mild Pain, (Reported) Acetaminophen* (Acetaminophen 325MG Tablet*), 325 MG ORAL Q4H PRN for For Pain, (Reported) Patient History Healthcare decision maker N Resuscitation status Full Code Advanced Directive on File 09/24/16 Past Medical/Surgical History Past Medical/Surgical History: (1) History of CVA (cerebrovascular accident) (2) Dementia (3) Limited mobility (4) Diabetes mellitus Review of Systems All Other Systems: negative except mentioned in HPI Physical Exam General Appearance: WD/WN Lines, tubes and drains: peripheral HEENT: normocephalic, anicteric Neck: non-tender, normal alignment Respiratory/Chest: chest wall non-tender, lungs clear, no respiratory distress , no accessory muscle use Cardiovascular/Chest: regular rhythm Abdomen: normal bowel sounds Last 24 Hour Vital Signs Date Time Temp Pulse Resp B/P (MAP) Pulse Ox O2 Delivery O2 Flow Rate FiO2 06/22/17 08:59 54 127/52 06/22/17 08:00 97.0 54 19 127/52 98 Room Air 06/22/17 07:28 58 18 98 Room Air 06/22/17 07:28 Room Air 06/22/17 06:00 116/50 06/22/17 04:46 97.1 64 18 126/58 100 Room Air 06/22/17 04:00 55 06/22/17 00:21 96.8 64 18 128/60 94 Room Air 06/22/17 00:00 55 06/21/17 21:38 112/55 06/21/17 20:00 68 06/21/17 19:33 67 18 99 Room Air 06/21/17 19:24 63 18 97 Room Air 06/21/17 19:24 63 18 Room Air 06/21/17 17:19 97.3 63 15 141/71 100 06/21/17 17:08 98.8 61 12 138/61 100 Room Air 06/21/17 16:20 61 12 138/61 100 Room Air 06/21/17 14:15 62 11 157/63 100 Room Air 06/21/17 13:45 98.8 60 20 138/76 98 Room Air Intake and Output 06/22/17 06/23/17 19:00 07:00 Intake Total 225 ml Balance 225 ml IV Total 225 ml Laboratory Tests Test 06/21/17 14:16 06/21/17 14:45 06/22/17 07:07 White Blood Count 8.3 K/UL (4.8-10.8) 7.5 K/UL (4.8-10.8) Red Blood Count 4.64 M/UL (4.20-5.40) 3.99 M/UL (4.20-5.40) L Hemoglobin 11.2 G/DL (12.0-16.0) L 9.5 G/DL (12.0-16.0) L Hematocrit 36.6 % (37.0-47.0) L 31.2 % (37.0-47.0) L Mean Corpuscular Volume 79 FL (80-99) L 78 FL (80-99) L Mean Corpuscular Hemoglobin 24.1 PG (27.0-31.0) L 24.0 PG (27.0-31.0) L Mean Corpuscular Hemoglobin Concent 30.6 G/DL (32.0-36.0) L 30.6 G/DL (32.0-36.0) L Red Cell Distribution Width 13.1 % (11.6-14.8) 13.2 % (11.6-14.8) Platelet Count 332 K/UL (150-450) 265 K/UL (150-450) Mean Platelet Volume 7.0 FL (6.5-10.1) 6.3 FL (6.5-10.1) L Neutrophils (%) (Auto) 80.8 % (45.0-75.0) H 74.4 % (45.0-75.0) Lymphocytes (%) (Auto) 10.7 % (20.0-45.0) L 15.6 % (20.0-45.0) L Monocytes (%) (Auto) 7.4 % (1.0-10.0) 6.6 % (1.0-10.0) Eosinophils (%) (Auto) 0.4 % (0.0-3.0) 2.6 % (0.0-3.0) Basophils (%) (Auto) 0.7 % (0.0-2.0) 0.8 % (0.0-2.0) Sodium Level 139 MMOL/L (136-145) 139 MMOL/L (136-145) Potassium Level 5.7 MMOL/L (3.5-5.1) H 4.2 MMOL/L (3.5-5.1) Chloride Level 105 MMOL/L (98-107) 108 MMOL/L (98-107) H Carbon Dioxide Level 25 MMOL/L (21-32) 23 MMOL/L (21-32) Anion Gap 9 mmol/L (5-15) 8 mmol/L (5-15) Blood Urea Nitrogen 30 mg/dL (7-18) H 26 mg/dL (7-18) H Creatinine 2.4 MG/DL (0.55-1.30) H 1.9 MG/DL (0.55-1.30) H Estimat Glomerular Filtration Rate mL/min (>60) mL/min (>60) Glucose Level 333 MG/DL (74-106) H 124 MG/DL (74-106) #H Lactic Acid Level 1.40 mmol/L (0.66-2.22) Calcium Level 9.9 MG/DL (8.5-10.1) 8.9 MG/DL (8.5-10.1) Phosphorus Level 4.1 MG/DL (2.5-4.9) 4.6 MG/DL (2.5-4.9) Magnesium Level 2.3 MG/DL (1.8-2.4) 1.9 MG/DL (1.8-2.4) Total Bilirubin 0.2 MG/DL (0.2-1.0) 0.2 MG/DL (0.2-1.0) Aspartate Amino Transf (AST/SGOT) 11 U/L (15-37) L 13 U/L (15-37) L Alanine Aminotransferase (ALT/SGPT) 15 U/L (12-78) 15 U/L (12-78) Alkaline Phosphatase 68 U/L (46-116) 55 U/L (46-116) Total Creatine Kinase 60 U/L (26-308) 43 U/L (26-308) Creatine Kinase MB 1.8 NG/ML (0.0-3.6) Creatine Kinase MB Relative Index 3.0 Troponin I 0.038 ng/mL (0.000-0.056) 0.037 ng/mL (0.000-0.056) Total Protein 7.6 G/DL (6.4-8.2) 6.1 G/DL (6.4-8.2) L Albumin 3.3 G/DL (3.4-5.0) L 2.7 G/DL (3.4-5.0) L Globulin 4.3 g/dL 3.4 g/dL Albumin/Globulin Ratio 0.8 (1.0-2.7) L 0.8 (1.0-2.7) L Lipase 150 U/L (73-393) Urine Color Pale yellow Urine Appearance Clear Urine pH 5 (4.5-8.0) Urine Specific [place] 1.015 (1.005-1.035) Urine Protein 3+ (NEGATIVE) H Urine Glucose (UA) 4+ (NEGATIVE) H Urine Ketones Negative (NEGATIVE) Urine Occult Blood Negative (NEGATIVE) Urine Nitrite Negative (NEGATIVE) Urine Bilirubin Negative (NEGATIVE) Urine Urobilinogen Normal MG/DL (0.0-1.0) Urine Leukocyte Esterase 1+ (NEGATIVE) H Urine RBC 2-4 /HPF (0 - 2) H Urine WBC 2-4 /HPF (0 - 2) Urine Squamous Epithelial Cells Few /LPF (NONE/OCC) Urine Amorphous Sediment Few /LPF (NONE) H Urine Bacteria Few /HPF (NONE) Hemoglobin A1c 9.1 % (4.3-6.0) H Uric Acid 6.3 MG/DL (2.6-7.2) Iron Level 44 ug/dL (50-175) L Total Iron Binding Capacity 135 ug/dL (250-450) L Percent Iron Saturation 33 % (15-50) Unsaturated Iron Binding 91 ug/dL (112-346) L Ferritin 290 NG/ML (8-388) Gamma Glutamyl Transpeptidase 16 U/L (5-85) C-Reactive Protein, Quantitative < 0.4 mg/dL (0.00-0.90) Pro-B-Type Natriuretic Peptide 1079 pg/mL (0-125) H Triglycerides Level 77 MG/DL (30-150) Cholesterol Level 148 MG/DL (< 200) LDL Cholesterol 82 mg/dL (<100) HDL Cholesterol 46 MG/DL (40-60) Cholesterol/HDL Ratio 3.2 (3.3-4.4) L Thyroid Stimulating Hormone (TSH) 1.352 uiU/mL (0.358-3.740) Microbiology Date/Time Source Procedure Growth Status 06/21/17 15:00 Nasal Nares Influenza Types A,B Antigen (REE) - Final Complete Height (Feet): 5 Height (Inches): 3.00 Weight (Pounds): 125 Medications Current Medications Medications (Trade) Dose Ordered Sig/Nancy Route PRN Reason Start Time Stop Time Status Last Admin Dose Admin Acetaminophen (Tylenol) 325 mg Q4H PRN ORAL Mild Pain (Pain Scale 1-3) 06/21/17 16:00 07/21/17 15:59 Albuterol Sulfate (Proventil) 2.5 mg QIDRT HHN 06/21/17 19:00 06/26/17 18:59 06/21/17 19:24 Aspirin (Ecotrin) 81 mg DAILY ORAL 06/22/17 09:00 07/22/17 08:59 06/22/17 08:59 Dextrose (Dextrose 50%) STAT PRN IV Hypoglycemia 06/21/17 19:30 07/21/17 19:29 Docusate Sodium (Colace) 100 mg TID ORAL 06/21/17 18:00 07/21/17 17:59 06/22/17 09:00 Donepezil HCl (Aricept) 5 mg QHS ORAL 06/21/17 21:00 07/21/17 20:59 06/21/17 21:07 Heparin Sodium (Porcine) (Heparin 5000 units/ml) 5,000 units EVERY 12 HOURS SUBQ 06/21/17 21:00 07/21/17 20:59 11/25/17 09:00 Hydralazine HCl (Apresoline) 50 mg Q8HR ORAL 06/21/17 22:00 07/21/17 21:59 Insulin Aspart (NovoLOG) BEFORE MEALS AND HS SUBQ 06/21/17 21:00 07/21/17 20:59 06/22/17 06:28 Metoprolol Succinate (Toprol XL) 12.5 mg DAILY ORAL 06/22/17 09:00 07/22/17 08:59 06/22/17 08:59 Pantoprazole (Protonix) 40 mg BID ORAL 06/21/17 18:00 07/21/17 17:59 06/22/17 08:59 Sodium Chloride 1,000 ml @ 75 mls/hr [id number] IV 06/21/17 16:00 07/21/17 15:59 06/22/17 06:28 Assessment/Plan Problem List: (1) Renal failure (ARF), acute on chronic ICD Codes: N17.9 - Acute kidney failure, unspecified; N18.9 - Chronic kidney disease, unspecified SNOMED: 439169765 (2) Hyperglycemia (3) Diabetes mellitus (4) History of CVA (cerebrovascular accident) ICD Codes: Z86.73 - Personal history of transient ischemic attack (TIA), and cerebral infarction without residual deficits SNOMED: 019841952 (5) Dementia ICD Codes: F03.90 - Unspecified dementia without behavioral disturbance SNOMED: 15906977 Assessment/Plan IV fluids check electrolytes dvt prophylaxis monitor and treat BP sliding scale diabetic diet swallow study. calorie count JAIRO DELEON Jun 22, 2017 09:49
--- NOTE | 2017-06-22 10:46 | Diagnostic Imaging Report ---
Indication: Shortness of breath Technique: XRAY CHEST 1 V Comparison: 06/09/17 Findings: Cardiomediastinal silhouette is stable. Atherosclerotic changes are noted. There is no consolidation or pleural effusion. Chronic appearing left-sided rib fracture deformities are again seen. Degenerative changes of the spine are noted. Impression: No acute cardiopulmonary disease.
--- NOTE | 2017-06-22 10:52 | General Progress Note ---
Assessment/Plan Status: stable Status Narrative Cr lower K improved Assessment/Plan status: Acute renal failure cr 1.5 to 2.4 back to 1.9 with hydration HyperKalemia, resolved Hyperglycemia , improved UTI Bradycardia PH 1. Xcy-UD-argzvj ion myocardial infarction. 2. Evidence of urinary tract infection. E coli 3. Renal failure and diabetic nephropathy. 4. Diabetes mellitus. 5. Evidence of dehydration. 6. History of anemia. 7. History of peripheral vascular disease. 8. Aspiration percautions Plan: Hold beta blockers for low HR- Adjust BP meds- Monitor renal parameters- HHN- Rocephin per orders Subjective ROS Limited/Unobtainable: No Constitutional: Reports: malaise, weakness Allergies: Coded Allergies: No Known Allergies (Unverified , 06/10/17) Objective Last 24 Hour Vital Signs Date Time Temp Pulse Resp B/P (MAP) Pulse Ox O2 Delivery O2 Flow Rate FiO2 06/22/17 08:59 54 127/52 06/22/17 08:00 97.0 54 19 127/52 98 Room Air 06/22/17 08:00 54 06/22/17 07:28 58 18 98 Room Air 06/22/17 07:28 Room Air 06/22/17 06:00 116/50 06/22/17 04:46 97.1 64 18 126/58 100 Room Air 06/22/17 04:00 55 06/22/17 00:21 96.8 64 18 128/60 94 Room Air 06/22/17 00:00 55 06/21/17 21:38 112/55 06/21/17 20:00 68 06/21/17 19:33 67 18 99 Room Air 06/21/17 19:24 63 18 97 Room Air 06/21/17 19:24 63 18 Room Air 06/21/17 17:19 97.3 63 15 141/71 100 06/21/17 17:08 98.8 61 12 138/61 100 Room Air 06/21/17 16:20 61 12 138/61 100 Room Air 06/21/17 14:15 62 11 157/63 100 Room Air 06/21/17 13:45 98.8 60 20 138/76 98 Room Air Intake and Output 06/22/17 06/23/17 19:00 07:00 Intake Total 225 ml Balance 225 ml IV Total 225 ml Laboratory Tests 06/21/17 14:16: White Blood Count 8.3, Red Blood Count 4.64, Hemoglobin 11.2L, Hematocrit 36.6L , Mean Corpuscular Volume 79L, Mean Corpuscular Hemoglobin 24.1L, Mean Corpuscular Hemoglobin Concent 30.6L, Red Cell Distribution Width 13.1, Platelet Count 332, Mean Platelet Volume 7.0, Neutrophils (%) (Auto) 80.8H, Lymphocytes (%) (Auto) 10.7L, Monocytes (%) (Auto) 7.4, Eosinophils (%) (Auto) 0.4, Basophils (%) (Auto) 0.7, Sodium Level 139, Potassium Level 5.7H, Chloride Level 105, Carbon Dioxide Level 25, Anion Gap 9, Blood Urea Nitrogen 30H, Creatinine 2.4H, Estimat Glomerular Filtration Rate , Glucose Level 333H, Lactic Acid Level 1.40, Calcium Level 9.9, Phosphorus Level 4.1, Magnesium Level 2.3, Total Bilirubin 0.2, Aspartate Amino Transf (AST/SGOT) 11L, Alanine Aminotransferase (ALT/SGPT) 15, Alkaline Phosphatase 68, Total Creatine Kinase 60, Creatine Kinase MB 1.8, Creatine Kinase MB Relative Index 3.0, Troponin I 0.038, Total Protein 7.6, Albumin 3.3L, Globulin 4.3, Albumin/Globulin Ratio 0.8L, Lipase 150 06/21/17 14:45: Urine Color Pale yellow, Urine Appearance Clear, Urine pH 5, Urine Specific [place] 1.015, Urine Protein 3+H, Urine Glucose (UA) 4+H, Urine Ketones Negative , Urine Occult Blood Negative, Urine Nitrite Negative, Urine Bilirubin Negative , Urine Urobilinogen Normal, Urine Leukocyte Esterase 1+H, Urine RBC 2-4H, Urine WBC 2-4, Urine Squamous Epithelial Cells Few, Urine Amorphous Sediment FewH, Urine Bacteria Few 06/22/17 07:07: White Blood Count 7.5, Red Blood Count 3.99L, Hemoglobin 9.5L, Hematocrit 31.2L , Mean Corpuscular Volume 78L, Mean Corpuscular Hemoglobin 24.0L, Mean Corpuscular Hemoglobin Concent 30.6L, Red Cell Distribution Width 13.2, Platelet Count 265, Mean Platelet Volume 6.3L, Neutrophils (%) (Auto) 74.4, Lymphocytes (%) (Auto) 15.6L, Monocytes (%) (Auto) 6.6, Eosinophils (%) (Auto) 2.6, Basophils (%) (Auto) 0.8, Sodium Level 139, Potassium Level 4.2, Chloride Level 108H, Carbon Dioxide Level 23, Anion Gap 8, Blood Urea Nitrogen 26H, Creatinine 1.9H, Estimat Glomerular Filtration Rate , Glucose Level 124#H, Calcium Level 8.9, Phosphorus Level 4.6, Magnesium Level 1.9, Total Bilirubin 0.2, Aspartate Amino Transf (AST/SGOT) 13L, Alanine Aminotransferase (ALT/SGPT) 15, Alkaline Phosphatase 55, Total Creatine Kinase 43, Troponin I 0.037, Total Protein 6.1L, Albumin 2.7L, Globulin 3.4, Albumin/Globulin Ratio 0.8L, Hemoglobin A1c 9.1H, Uric Acid 6.3, Iron Level 44L, Total Iron Binding Capacity 135L, Percent Iron Saturation 33, Unsaturated Iron Binding 91L, Ferritin 290, Gamma Glutamyl Transpeptidase 16, C-Reactive Protein, Quantitative < 0.4, Pro-B- Type Natriuretic Peptide 1079H, Triglycerides Level 77, Cholesterol Level 148, LDL Cholesterol 82, HDL Cholesterol 46, Cholesterol/HDL Ratio 3.2L, Thyroid Stimulating Hormone (TSH) 1.352 Height (Feet): 5 Height (Inches): 3.00 Weight (Pounds): 125 General Appearance: no apparent distress, lethargic Cardiovascular: bradycardia Respiratory/Chest: decreased breath sounds Abdomen: soft Objective other PE not changed ADINA GUARDADO Jun 22, 2017 10:52
[2017-06-22 12:00] VITALS: BP 131/54
[2017-06-22] MEDS: cefTRIAXone 1 GM in D5W 55 ML IVPB SCH (12:06)
[2017-06-22 16:00] VITALS: BP 125/65
--- NOTE | 2017-06-22 17:30 | History and Physical Report ---
DATE OF ADMISSION: 06/21/2017 HISTORY OF PRESENT ILLNESS: The patient is a 76-year-old female, who was recently discharged from [facility] to [facility]. However, the patient stopped eating for the past 24 hours and then initial blood work in the jail was suggestive of an acute renal failure and hyperkalemia. The patient was sent to emergency room, confirmed to have acute renal failure, and also hyperkalemia. The blood sugar was noted to be elevated and evidence of UTI. The patient is being admitted for further management. In the recent hospitalization, the patient was diagnosed to have non-ST elevation MT, evidence of E. coli UTI, and diabetic nephropathy. The patient has history of diabetes mellitus, history of anemia, history of peripheral vascular disease, and aspiration prone. Upon discharge, the patient's Rocephin was changed to Bactrim for five more days. Other medications upon discharge included aspirin, Lipitor, stool softener, Aricept, glipizide, hydralazine, lisinopril, Reglan, Lopressor, and vitamin D. PHYSICAL EXAMINATION: VITAL SIGNS: Heart rate is 54, blood pressure 127/52, temperature 97 degrees, and respiratory rate 19. GENERAL: The patient is slow in response, slightly pale. LUNGS: Decreased breath sound over the bases. HEART: Regular, bradycardic. BREASTS: Atrophic. ABDOMEN: Soft. EXTREMITIES: Scar over the left hip of the previous surgery. The patient moves extremities; however, there are poor pulses in lower extremities. LABORATORY DATA: Potassium 5.7, creatinine 2.4, and glucose 333. UA still pending. IMPRESSION: 1. Acute renal failure. 2. Hyperkalemia. 3. Hyperglycemia. 4. Most likely residual urinary tract infection. PLAN: Waiting for chest x-ray and urine culture. We will hydrate the patient. Check blood sugar and blood pressure. Monitor electrolytes and renal parameters, and avoid nephrotoxics, and according to how the patient's condition evolves, we will make the proper changes in our future management. Mohsen Ortiz M.D. DR: Bre JOB#: [id number] CC:
[2017-06-22 20:00] VITALS: BP 135/63
[2017-06-22] MEDS: Donepezil 5mg Tab ORAL SCH ×2 (21:00→22:12)
[2017-06-23] VITALS: BP 133/63
[2017-06-23 04:00] VITALS: BP 123/73
[2017-06-23] MEDS: HydrALAZINE 50mg tab ORAL SCH ×3 (05:15→22:22)
[2017-06-23] MEDS: NovoLOG Insulin Flexpen SUBQ SCH ×4 (06:26→22:23)
[2017-06-23 06:31] LABS: BASOPHILS % (AUTO) 0.8 % (0.0-2.0); EOSINOPHILS % (AUTO) 2.7 % (0.0-3.0); LYMPHOCYTES % (AUTO) 12.5 % (20.0-45.0); MEAN CORPUSCULAR HEMOGLOBIN 23.5 PG (27.0-31.0); MEAN CORPUSCULAR VOLUME 78 FL (80-99); MEAN PLATELET VOLUME 6.5 FL (6.5-10.1); MONOCYTES % (AUTO) 7.8 % (1.0-10.0); NEUTROPHILS % (AUTO) 76.1 % (45.0-75.0); PLATELET COUNT 261 K/UL (150-450); RED BLOOD COUNT 4.03 M/UL (4.20-5.40); RED CELL DISTRIBUTION WIDTH 12.8 % (11.6-14.8); WHITE BLOOD COUNT 8.5 K/UL (4.8-10.8)
[2017-06-23 06:40] LABS: PROTHROMBIN TIME 10.5 SEC (9.30-11.50)
[2017-06-23] MEDS: Albuterol ud Inhalation HHN SCH ×4 (07:00→21:06)
[2017-06-23 07:04] LABS: ALANINE AMINOTRANSFERASE 14 U/L (12-78); ALBUMIN/GLOBULIN RATIO 0.8 (1.0-2.7); ANION GAP 11 mmol/L (5-15); ASPARTATE AMINO TRANSFERASE 14 U/L (15-37); CALCIUM 8.7 MG/DL (8.5-10.1); CARBON DIOXIDE 23 MMOL/L (21-32); CHLORIDE 109 MMOL/L (98-107); CREATININE 1.6 MG/DL (0.55-1.30); MAGNESIUM 1.7 MG/DL (1.8-2.4); PHOSPHORUS 4.1 MG/DL (2.5-4.9); POTASSIUM 3.7 MMOL/L (3.5-5.1); SODIUM 143 MMOL/L (136-145); TOTAL PROTEIN 6.1 G/DL (6.4-8.2)
[2017-06-23 08:00] VITALS: BP_SYST 149; BP_SYST 179; BP_DIAS 76; BP_DIAS 80
[2017-06-23 08:00] LABS: ACANTHOCYTES 1+; ANISOCYTOSIS 1+; BAND NEUTROPHILS % (MANUAL) 0 % (0-8); BASOPHILS % (MANUAL) 3 % (0-2); EOSINOPHILS % (MANUAL) 5 % (0-3); LYMPHOCYTES % (MANUAL) 18 % (20-45); NEUTROPHILS % (MANUAL) 68 % (45-75); PLATELET ESTIMATE ADEQUATE; PLATELET MORPHOLOGY NORMAL; TOTAL CELLS COUNTED 100
[2017-06-23] MEDS: Aspirin EC 81mg tab ORAL SCH (08:24)
[2017-06-23] MEDS: Docusate 100mg cap ORAL SCH ×3 (08:25→17:54)
[2017-06-23] MEDS: Heparin 5000 units/ml inj SUBQ SCH ×2 (08:25→22:24)
[2017-06-23 09:05] LABS: ERYTHROCYTE SEDIMENTATION RATE 23 MM/HR (0-30)
[2017-06-23 09:24] LABS: PATH BLOOD SMEAR/OMC SEND TO PATHOLOGIST; RETICULOCYTE COUNT 0.8 % (0.0-2.0)
[2017-06-23 10:00] LABS: APPEARANCE,URINE CLEAR; KETONES,URINE NEGATIVE (NEGATIVE); LEUKOCYTE ESTERASE ,URINE NEGATIVE (NEGATIVE); NITRITE,URINE NEGATIVE (NEGATIVE); PH,URINE 5 (4.5-8.0); PROTEIN,URINE 2+ (NEGATIVE); UROBILINOGEN,URINE NORMAL MG/DL (0.0-1.0)
[2017-06-23 10:13] LABS: BACTERIA,URINE FEW /HPF; RBC,URINE 0-2 /HPF (0 - 2); SQUAMOUS EPITHELIAL CELL,UR OCCASIONAL /LPF (NONE/OCC)
--- NOTE | 2017-06-23 10:41 | General Progress Note ---
Assessment/Plan Status: stable Assessment/Plan status: Acute renal failure cr 1.5 to 2.4 back to 1.6 with hydration HyperKalemia, resolved Hyperglycemia , improved UTI Bradycardia PH 1. Dpl-EN-vjuhpu ion myocardial infarction. 2. Evidence of urinary tract infection. E coli 3. Renal failure and diabetic nephropathy. 4. Diabetes mellitus. 5. Evidence of dehydration. 6. History of anemia. 7. History of peripheral vascular disease. 8. Aspiration percautions Plan: DC IV fluids- DC [place] Urine c/s pending Hold beta blockers for low HR- Adjust BP meds- Monitor renal parameters- HHN- Rocephin per orders ? DC in am Subjective ROS Limited/Unobtainable: No Constitutional: Reports: malaise Allergies: Coded Allergies: No Known Allergies (Unverified , 06/10/17) Objective Last 24 Hour Vital Signs Date Time Temp Pulse Resp B/P (MAP) Pulse Ox O2 Delivery O2 Flow Rate FiO2 06/23/17 08:00 97.1 60 17 149/76 99 Room Air 06/23/17 08:00 57 06/23/17 07:25 69 14 98 Room Air 21 06/23/17 07:25 Room Air 21 06/23/17 04:00 97.9 63 16 123/73 98 Room Air 06/23/17 03:50 61 06/23/17 00:00 97.9 59 18 133/63 97 Room Air 06/22/17 23:52 55 06/22/17 22:00 135/63 06/22/17 20:00 98.1 69 20 135/63 97 Room Air 06/22/17 19:53 73 06/22/17 19:31 56 14 99 Room Air 21 06/22/17 19:22 63 14 97 Room Air 21 06/22/17 19:22 21 06/22/17 16:00 97.7 66 20 125/65 98 Room Air 06/22/17 16:00 56 06/22/17 15:05 Room Air 06/22/17 15:04 Room Air 06/22/17 13:37 104/59 06/22/17 12:00 55 06/22/17 12:00 97.2 50 20 131/54 99 Room Air 06/22/17 10:45 Room Air 06/22/17 10:45 Room Air Intake and Output 06/23/17 06/24/17 19:00 07:00 Intake Total 225 ml Balance 225 ml IV Total 225 ml Laboratory Tests 06/22/17 11:00: Urine Random Sodium 63 06/23/17 04:00: Urine Eosinophils None seen 06/23/17 04:04: Urine Color Pale yellow, Urine Appearance Clear, Urine pH 5, Urine Specific [place] 1.010, Urine Protein 2+H, Urine Glucose (UA) Negative, Urine Ketones Negative, Urine Occult Blood Negative, Urine Nitrite Negative, Urine Bilirubin Negative, Urine Urobilinogen Normal, Urine Leukocyte Esterase Negative, Urine RBC 0-2, Urine WBC 2-4, Urine Squamous Epithelial Cells Occasional, Urine Bacteria Few, Stool Occult Blood [Pending] 06/23/17 04:53: White Blood Count 8.5, Red Blood Count 4.03L, Hemoglobin 9.5L, Hematocrit 31.6L , Mean Corpuscular Volume 78L, Mean Corpuscular Hemoglobin 23.5L, Mean Corpuscular Hemoglobin Concent 30.0L, Red Cell Distribution Width 12.8, Platelet Count 261, Mean Platelet Volume 6.5, Neutrophils (%) (Auto) 76.1H, Lymphocytes (%) (Auto) 12.5L, Monocytes (%) (Auto) 7.8, Eosinophils (%) (Auto) 2.7, Basophils (%) (Auto) 0.8, Differential Total Cells Counted 100, Neutrophils % (Manual) 68, Lymphocytes % (Manual) 18L, Monocytes % (Manual) 6, Eosinophils % (Manual) 5H, Basophils % (Manual) 3H, Band Neutrophils 0, Platelet Estimate Adequate, Platelet Morphology Normal, Anisocytosis 1+, Acanthocytes 1+, Erythrocyte Sedimentation Rate 23, Reticulocyte Count 0.8, Prothrombin Time 10.5, Prothromb Time International Ratio 1.0, Activated Partial Thromboplast Time 29, Sodium Level 143, Potassium Level 3.7, Chloride Level 109H, Carbon Dioxide Level 23, Anion Gap 11, Blood Urea Nitrogen 21H, Creatinine 1.6H, Estimat Glomerular Filtration Rate , Glucose Level 100, Calcium Level 8.7, Phosphorus Level 4.1, Magnesium Level 1.7L, Total Bilirubin 0.2, Aspartate Amino Transf (AST/SGOT) 14L, Alanine Aminotransferase (ALT/SGPT) 14, Alkaline Phosphatase 56, Lactate Dehydrogenase 170, Total Protein 6.1L, Albumin 2.7L, Globulin 3.4, Albumin/Globulin Ratio 0.8L Height (Feet): 5 Height (Inches): 3.00 Weight (Pounds): 125 General Appearance: no apparent distress Objective other PE not changed ADINA GUARDADO Jun 23, 2017 10:41
[2017-06-23 11:06] VITALS: BP 143/73
[2017-06-23] MEDS: cefTRIAXone 1 GM in D5W 55 ML IVPB SCH (11:54)
--- NOTE | 2017-06-23 12:17 | Pulmonology Progress Note ---
Assessment/Plan Problems: (1) Renal failure (ARF), acute on chronic (2) Hyperglycemia (3) Diabetes mellitus (4) History of CVA (cerebrovascular accident) (5) Dementia Assessment/Plan improving bun/creatinine decreasing check electrolytes sliding scale pt/ot med/surg Subjective ROS Limited/Unobtainable: No Interval Events: more awake, looks comfortable, doesn't follow commands Allergies: Coded Allergies: No Known Allergies (Unverified , 06/10/17) Objective Last 24 Hour Vital Signs Date Time Temp Pulse Resp B/P (MAP) Pulse Ox O2 Delivery O2 Flow Rate FiO2 06/23/17 11:30 74 16 99 Room Air 21 06/23/17 11:30 21 06/23/17 11:30 65 14 98 Room Air 06/23/17 11:06 98.0 61 20 143/73 98 Room Air 06/23/17 08:00 97.1 60 17 149/76 99 Room Air 06/23/17 08:00 57 06/23/17 07:25 69 14 98 Room Air 06/23/17 07:25 Room Air 06/23/17 04:00 97.9 63 16 123/73 98 Room Air 06/23/17 03:50 61 06/23/17 00:00 97.9 59 18 133/63 97 Room Air 06/22/17 23:52 55 06/22/17 22:00 135/63 06/22/17 20:00 98.1 69 20 135/63 97 Room Air 06/22/17 19:53 73 06/22/17 19:31 56 14 99 Room Air 06/22/17 19:22 63 14 97 Room Air 06/22/17 19:22 21 06/22/17 16:00 97.7 66 20 125/65 98 Room Air 06/22/17 16:00 56 06/22/17 15:05 Room Air 06/22/17 15:04 Room Air 06/22/17 13:37 104/59 Intake and Output 06/23/17 06/24/17 19:00 07:00 Intake Total 325 ml Balance 325 ml IV Total 325 ml Objective Lines, tubes and drains: peripheral HEENT: normocephalic, atraumatic Neck: non-tender, normal alignment Respiratory/Chest: chest wall non-tender, lungs clear Cardiovascular/Chest: normal peripheral pulses, regular rhythm, no gallop/ murmur Abdomen: normal bowel sounds, non tender, Gtube in place Genitourinary/Rectal: normal genital exam Extremities: normal range of motion, non-tender Microbiology Date/Time Source Procedure Growth Status 06/21/17 14:10 Blood Blood Culture - Preliminary Resulted 06/21/17 14:00 Blood Blood Culture - Preliminary NO GROWTH AFTER 24 HOURS Resulted 06/21/17 15:00 Nasal Nares MRSA Culture - Final NO METHICILLIN RESISTANT STAPH AUREUS... Complete 06/21/17 15:00 Nasal Nares Influenza Types A,B Antigen (REE) - Final Complete 06/21/17 15:00 Rectum VRE Culture - Final NO VANCOMYCIN RESISTANT ENTEROCOCCUS ... Complete Laboratory Tests 06/23/17 04:00: Urine Eosinophils None seen 06/23/17 04:04: Urine Color Pale yellow, Urine Appearance Clear, Urine pH 5, Urine Specific Talmage 1.010, Urine Protein 2+H, Urine Glucose (UA) Negative, Urine Ketones Negative, Urine Occult Blood Negative, Urine Nitrite Negative, Urine Bilirubin Negative, Urine Urobilinogen Normal, Urine Leukocyte Esterase Negative, Urine RBC 0-2, Urine WBC 2-4, Urine Squamous Epithelial Cells Occasional, Urine Bacteria Few, Stool Occult Blood [Pending] 06/23/17 04:53: White Blood Count 8.5, Red Blood Count 4.03L, Hemoglobin 9.5L, Hematocrit 31.6L , Mean Corpuscular Volume 78L, Mean Corpuscular Hemoglobin 23.5L, Mean Corpuscular Hemoglobin Concent 30.0L, Red Cell Distribution Width 12.8, Platelet Count 261, Mean Platelet Volume 6.5, Neutrophils (%) (Auto) 76.1H, Lymphocytes (%) (Auto) 12.5L, Monocytes (%) (Auto) 7.8, Eosinophils (%) (Auto) 2.7, Basophils (%) (Auto) 0.8, Differential Total Cells Counted 100, Neutrophils % (Manual) 68, Lymphocytes % (Manual) 18L, Monocytes % (Manual) 6, Eosinophils % (Manual) 5H, Basophils % (Manual) 3H, Band Neutrophils 0, Platelet Estimate Adequate, Platelet Morphology Normal, Anisocytosis 1+, Acanthocytes 1+, Erythrocyte Sedimentation Rate 23, Reticulocyte Count 0.8, Prothrombin Time 10.5, Prothromb Time International Ratio 1.0, Activated Partial Thromboplast Time 29, Sodium Level 143, Potassium Level 3.7, Chloride Level 109H, Carbon Dioxide Level 23, Anion Gap 11, Blood Urea Nitrogen 21H, Creatinine 1.6H, Estimat Glomerular Filtration Rate , Glucose Level 100, Calcium Level 8.7, Phosphorus Level 4.1, Magnesium Level 1.7L, Total Bilirubin 0.2, Aspartate Amino Transf (AST/SGOT) 14L, Alanine Aminotransferase (ALT/SGPT) 14, Alkaline Phosphatase 56, Lactate Dehydrogenase 170, Total Protein 6.1L, Albumin 2.7L, Globulin 3.4, Albumin/Globulin Ratio 0.8L Current Medications Medications (Trade) Dose Ordered Sig/Nancy Route PRN Reason Start Time Stop Time Status Last Admin Dose Admin Acetaminophen (Tylenol) 325 mg Q4H PRN ORAL Mild Pain (Pain Scale 1-3) 06/21/17 16:00 07/21/17 15:59 Albuterol Sulfate (Proventil) 2.5 mg QIDRT HHN 06/21/17 19:00 06/26/17 18:59 06/23/17 11:39 Aspirin (Ecotrin) 81 mg DAILY ORAL 06/22/17 09:00 07/22/17 08:59 06/23/17 08:24 Ceftriaxone Sodium 1 gm/ Dextrose 55 ml @ 110 mls/hr Q24H IVPB 06/22/17 12:00 06/29/17 11:59 06/23/17 11:54 Dextrose (Dextrose 50%) STAT PRN IV Hypoglycemia 06/21/17 19:30 07/21/17 19:29 Docusate Sodium (Colace) 100 mg TID ORAL 06/21/17 18:00 07/21/17 17:59 06/23/17 08:25 Donepezil HCl (Aricept) 5 mg QHS ORAL 06/21/17 21:00 07/21/17 20:59 06/21/17 21:07 Heparin Sodium (Porcine) (Heparin 5000 units/ml) 5,000 units EVERY 12 HOURS SUBQ 06/21/17 21:00 07/21/17 20:59 06/23/17 08:25 Hydralazine HCl (Apresoline) 50 mg Q8HR ORAL 06/21/17 22:00 07/21/17 21:59 Insulin Aspart (NovoLOG) BEFORE MEALS AND HS SUBQ 06/21/17 21:00 07/21/17 20:59 06/23/17 11:24 Magnesium Sulfate 100 ml @ 100 mls/hr Q1H IVPB 06/23/17 10:45 06/23/17 12:44 06/23/17 10:50 Pantoprazole (Protonix) 40 mg BID ORAL 06/21/17 18:00 07/21/17 17:59 06/23/17 08:25 JAIRO DELEON Jun 23, 2017 12:17
--- NOTE | 2017-06-23 15:34 | Cardiology Report ---
APPROVED REPORT EKG Measurement Heart [id number] Normal sinus rhythm Normal ECG
[2017-06-23 16:00] VITALS: BP 133/59
[2017-06-23] MEDS ORDERED: Tubing IV Secondary IV ONE (16:08)
[2017-06-23] MEDS ORDERED: 1/2 NS 1000ml IV ONE (16:08)
[2017-06-23 20:00] VITALS: BP 158/91
[2017-06-23] MEDS ORDERED: Donepezil 5mg Tab ORAL SCH (21:00)
[2017-06-24] VITALS: BP 133/66
[2017-06-24 04:00] VITALS: BP 153/71
[2017-06-24] MEDS: HydrALAZINE 50mg tab ORAL SCH ×2 (06:10→13:50)
[2017-06-24] MEDS: NovoLOG Insulin Flexpen SUBQ SCH ×3 (06:11→16:30)
[2017-06-24 07:18] LABS: BASOPHILS % (AUTO) 1.4 % (0.0-2.0); EOSINOPHILS % (AUTO) 3.5 % (0.0-3.0); MEAN CORPUSCULAR HGB CONC 30.9 G/DL (32.0-36.0); MEAN CORPUSCULAR VOLUME 78 FL (80-99); MEAN PLATELET VOLUME 6.8 FL (6.5-10.1); MONOCYTES % (AUTO) 8.9 % (1.0-10.0); NEUTROPHILS % (AUTO) 68.3 % (45.0-75.0); PLATELET COUNT 249 K/UL (150-450); RED BLOOD COUNT 4.08 M/UL (4.20-5.40); RED CELL DISTRIBUTION WIDTH 12.9 % (11.6-14.8); WHITE BLOOD COUNT 5.3 K/UL (4.8-10.8)
[2017-06-24 07:39] LABS: ALANINE AMINOTRANSFERASE 13 U/L (12-78); ALBUMIN/GLOBULIN RATIO 0.8 (1.0-2.7); ANION GAP 11 mmol/L (5-15); ASPARTATE AMINO TRANSFERASE 14 U/L (15-37); CALCIUM 8.9 MG/DL (8.5-10.1); CARBON DIOXIDE 24 MMOL/L (21-32); CHLORIDE 109 MMOL/L (98-107); CREATININE 1.4 MG/DL (0.55-1.30); MAGNESIUM 2.1 MG/DL (1.8-2.4); PHOSPHORUS 3.6 MG/DL (2.5-4.9); POTASSIUM 3.6 MMOL/L (3.5-5.1); SODIUM 144 MMOL/L (136-145); TOTAL PROTEIN 6.3 G/DL (6.4-8.2)
[2017-06-24] MEDS: Albuterol ud Inhalation HHN SCH ×3 (07:56→15:55)
[2017-06-24 08:00] VITALS: BP 136/67
[2017-06-24] MEDS ORDERED: Aspirin EC 81mg tab ORAL SCH (09:00)
[2017-06-24] MEDS: Docusate 100mg cap ORAL SCH ×2 (09:45→13:50)
[2017-06-24] MEDS: Heparin 5000 units/ml inj SUBQ SCH (09:45)
--- NOTE | 2017-06-24 10:49 | General Progress Note ---
Assessment/Plan Status: stable Assessment/Plan status: Acute renal failure cr 1.5 to 2.4 back to 1.4 with hydration HyperKalemia, resolved Hyperglycemia , improved UTI Bradycardia PH 1. [id number] ion myocardial infarction. 2. Evidence of urinary tract infection. E coli 3. Renal failure and diabetic nephropathy. 4. Diabetes mellitus. 5. Evidence of dehydration. 6. History of anemia. 7. History of peripheral vascular disease. 8. Aspiration percautions Plan: DC IV fluids- DC Clark Urine c/s neg Hold beta blockers for low HR- Adjust BP meds- Monitor renal parameters- HHN- Rocephin per orders ? DC today Subjective ROS Limited/Unobtainable: No Constitutional: Reports: malaise Allergies: Coded Allergies: No Known Allergies (Unverified , 06/10/17) Objective Last 24 Hour Vital Signs Date Time Temp Pulse Resp B/P (MAP) Pulse Ox O2 Delivery O2 Flow Rate FiO2 06/24/17 08:01 60 14 99 Room Air 06/24/17 08:00 97.6 72 19 136/67 98 Room Air 06/24/17 07:57 60 14 98 Room Air 06/24/17 06:10 155/73 06/24/17 04:00 98.3 60 18 153/71 99 Room Air 06/24/17 00:00 98.5 66 18 133/66 99 Room Air 06/23/17 22:22 158/91 06/23/17 21:13 60 16 99 Room Air 06/23/17 21:03 21 06/23/17 21:03 66 16 98 Room Air 06/23/17 20:00 98.5 63 18 158/91 100 06/23/17 16:00 97.3 71 18 133/59 99 Room Air 06/23/17 15:42 69 16 99 Room Air 06/23/17 15:41 21 06/23/17 15:41 62 16 98 Room Air 06/23/17 14:31 159/70 06/23/17 11:30 74 16 99 Room Air 06/23/17 11:30 21 06/23/17 11:30 65 14 98 Room Air 06/23/17 11:06 98.0 61 20 143/73 98 Room Air Laboratory Tests 06/24/17 05:50: White Blood Count 5.3, Red Blood Count 4.08L, Hemoglobin 9.8L, Hematocrit 31.7L , Mean Corpuscular Volume 78L, Mean Corpuscular Hemoglobin 24.0L, Mean Corpuscular Hemoglobin Concent 30.9L, Red Cell Distribution Width 12.9, Platelet Count 249, Mean Platelet Volume 6.8, Neutrophils (%) (Auto) 68.3, Lymphocytes (%) (Auto) 18.0L, Monocytes (%) (Auto) 8.9, Eosinophils (%) (Auto) 3.5H, Basophils (%) (Auto) 1.4, Sodium Level 144, Potassium Level 3.6, Chloride Level 109H, Carbon Dioxide Level 24, Anion Gap 11, Blood Urea Nitrogen 16, Creatinine 1.4H, Estimat Glomerular Filtration Rate , Glucose Level 143H, Calcium Level 8.9, Phosphorus Level 3.6, Magnesium Level 2.1, Total Bilirubin 0.2, Aspartate Amino Transf (AST/SGOT) 14L, Alanine Aminotransferase (ALT/SGPT) 13, Alkaline Phosphatase 57, Total Protein 6.3L, Albumin 2.7L, Globulin 3.6, Albumin/Globulin Ratio 0.8L Height (Feet): 5 Height (Inches): 3.00 Weight (Pounds): 125 General Appearance: lethargic Cardiovascular: regular rhythm Respiratory/Chest: lungs clear Abdomen: soft Objective other PE not changed ADINA GUARDADO Jun 24, 2017 10:49
[2017-06-24] MEDS ORDERED: cefTRIAXone 1 GM in D5W 55 ML IVPB SCH ×2 (11:00→12:00)
[2017-06-24 11:40] LABS: OTHERS PATHOLOGIST COMMENT
[2017-06-24] MEDS ORDERED: ALBUTEROL2.5 MG/3 M HHN (11:58)
[2017-06-24] MEDS ORDERED: NOVOLOG100 UNITS1 SUBQ (11:58)
--- NOTE | 2017-06-24 11:59 | Discharge Instructions ---
Discharge Instructions Discharge Instructions Follow up with: myself at [facility] Diet: diabetic calorie control, other - easy chew- Special Instructions aspiration percautions- routine skin care For Congestive Heart Failure Reminder Report to your physician any weight gain of 5 pounds or more in one week. ADINA GUARDADO Jun 24, 2017 11:59
[2017-06-24 12:00] VITALS: BP 148/70
--- NOTE | 2017-06-24 12:11 | Pulmonology Progress Note ---
Assessment/Plan Problems: (1) Renal failure (ARF), acute on chronic (2) Hyperglycemia (3) Diabetes mellitus (4) History of CVA (cerebrovascular accident) (5) Dementia Assessment/Plan tolerating diet, blood smear reviewed, microcytic anemia improving bun/creatinine decreasing check electrolytes sliding scale reviewed pt/ot med/surg Subjective ROS Limited/Unobtainable: No Interval Events: awake, comfortable Constitutional: Reports: no symptoms HEENT: Repors: no symptoms Allergies: Coded Allergies: No Known Allergies (Unverified , 06/10/17) Objective Last 24 Hour Vital Signs Date Time Temp Pulse Resp B/P (MAP) Pulse Ox O2 Delivery O2 Flow Rate FiO2 06/24/17 11:50 Room Air 06/24/17 11:50 Room Air 06/24/17 08:01 60 14 99 Room Air 06/24/17 08:00 97.6 72 19 136/67 98 Room Air 06/24/17 07:57 60 14 98 Room Air 06/24/17 06:10 155/73 06/24/17 04:00 98.3 60 18 153/71 99 Room Air 06/24/17 00:00 98.5 66 18 133/66 99 Room Air 06/23/17 22:22 158/91 06/23/17 21:13 60 16 99 Room Air 06/23/17 21:03 21 06/23/17 21:03 66 16 98 Room Air 06/23/17 20:00 98.5 63 18 158/91 100 06/23/17 16:00 97.3 71 18 133/59 99 Room Air 06/23/17 15:42 69 16 99 Room Air 06/23/17 15:41 21 06/23/17 15:41 62 16 98 Room Air 06/23/17 14:31 159/70 Objective Lines, tubes and drains: peripheral HEENT: normocephalic, atraumatic Neck: non-tender, normal alignment Respiratory/Chest: chest wall non-tender, lungs clear Cardiovascular/Chest: normal peripheral pulses, regular rhythm, no gallop/ murmur Abdomen: normal bowel sounds, non tender, Gtube in place Genitourinary/Rectal: normal genital exam Extremities: normal range of motion, non-tender Microbiology Date/Time Source Procedure Growth Status 06/21/17 14:10 Blood Blood Culture - Preliminary Staphylococcus Sp Coag Neg Resulted 06/21/17 14:00 Blood Blood Culture - Preliminary NO GROWTH AFTER 48 HOURS Resulted 06/21/17 15:00 Nasal Nares MRSA Culture - Final NO METHICILLIN RESISTANT STAPH AUREUS... Complete 06/21/17 15:00 Nasal Nares Influenza Types A,B Antigen (REE) - Final Complete 06/23/17 04:00 Indwelling Cath Urine Culture - Preliminary NO GROWTH AFTER 24 HOURS Resulted 06/21/17 15:00 Rectum VRE Culture - Final NO VANCOMYCIN RESISTANT ENTEROCOCCUS ... Complete Laboratory Tests 06/24/17 05:50: White Blood Count 5.3, Red Blood Count 4.08L, Hemoglobin 9.8L, Hematocrit 31.7L , Mean Corpuscular Volume 78L, Mean Corpuscular Hemoglobin 24.0L, Mean Corpuscular Hemoglobin Concent 30.9L, Red Cell Distribution Width 12.9, Platelet Count 249, Mean Platelet Volume 6.8, Neutrophils (%) (Auto) 68.3, Lymphocytes (%) (Auto) 18.0L, Monocytes (%) (Auto) 8.9, Eosinophils (%) (Auto) 3.5H, Basophils (%) (Auto) 1.4, Sodium Level 144, Potassium Level 3.6, Chloride Level 109H, Carbon Dioxide Level 24, Anion Gap 11, Blood Urea Nitrogen 16, Creatinine 1.4H, Estimat Glomerular Filtration Rate , Glucose Level 143H, Calcium Level 8.9, Phosphorus Level 3.6, Magnesium Level 2.1, Total Bilirubin 0.2, Aspartate Amino Transf (AST/SGOT) 14L, Alanine Aminotransferase (ALT/SGPT) 13, Alkaline Phosphatase 57, Total Protein 6.3L, Albumin 2.7L, Globulin 3.6, Albumin/Globulin Ratio 0.8L Current Medications Medications (Trade) Dose Ordered Sig/Nancy Route PRN Reason Start Time Stop Time Status Last Admin Dose Admin Acetaminophen (Tylenol) 325 mg Q4H PRN ORAL Mild Pain (Pain Scale 1-3) 06/23/17 16:00 07/21/17 15:59 Albuterol Sulfate (Proventil) 2.5 mg QIDRT HHN 06/23/17 15:00 06/26/17 18:59 06/24/17 07:56 Aspirin (Ecotrin) 81 mg DAILY ORAL 06/24/17 09:00 07/22/17 08:59 06/24/17 09:44 Ceftriaxone Sodium 1 gm/ Dextrose 55 ml @ 110 mls/hr Q24H IVPB 06/24/17 11:00 06/29/17 11:59 06/24/17 11:30 Dextrose (Dextrose 50%) STAT PRN IV Hypoglycemia 06/23/17 19:30 07/21/17 19:29 Docusate Sodium (Colace) 100 mg TID ORAL 06/23/17 18:00 07/21/17 17:59 06/24/17 09:45 Donepezil HCl (Aricept) 5 mg QHS ORAL 06/23/17 21:00 07/21/17 20:59 06/23/17 22:22 Heparin Sodium (Porcine) (Heparin 5000 units/ml) 5,000 units EVERY 12 HOURS SUBQ 06/23/17 21:00 07/21/17 20:59 06/24/17 09:45 Hydralazine HCl (Apresoline) 50 mg Q8HR ORAL 06/23/17 14:00 07/21/17 21:59 06/24/17 06:10 Insulin Aspart (NovoLOG) BEFORE MEALS AND HS SUBQ 06/23/17 16:30 07/21/17 20:59 06/24/17 06:11 Pantoprazole (Protonix) 40 mg BID ORAL 06/23/17 18:00 07/21/17 17:59 06/24/17 09:45 JAIRO DELEON Jun 24, 2017 12:10
[2017-06-24 16:00] VITALS: BP 140/86
--- NOTE | 2017-06-26 09:04 | Discharge Summary ---
Discharge Summary Hospital Course Date of Admission Jun 21, 2017 at 15:11 Date of Discharge Jun 24, 2017 at 19:00 Admitting Diagnosis hyperkalemia, acute kidney injury [facility] Tanya Padilla is a 76 year old female who was admitted on Jun 21, 2017 at 15:11 for Hyperkalemia,Acute Kidney Injury Hospital Course dc summary #[id number] Discharge Medications New Medications: Albuterol Sulfate* (Albuterol Sulfate Hhn*) 2.5 Mg/3 Ml Vial.neb 2.5 MG HHN QIDRT for 10 Days, VIAL Insulin Aspart (Novolog Flexpen) 100 Unit/1 Ml Insuln.pen 0 UNITS SUBQ BEFORE MEALS AND HS for 30 Days, EA Continued Medications: Acetaminophen* (Acetaminophen 325MG Tablet*) 325 Mg Tablet 650 MG ORAL Q6H PRN for For Pain for 30 Days, TAB Acetaminophen* (Acetaminophen 325MG Tablet*) 325 Mg Tablet 650 MG ORAL Q4H PRN for Fever/Headache/Mild Pain, TAB Aspirin Ec* (Aspirin Ec*) 81 Mg Tablet.dr 81 MG ORAL DAILY for 30 Days, TAB Cholecalciferol (Vitamin D3)* (Vitamin D*) 1,000 Unit Tablet 1000 UNIT ORAL DAILY, #30 TAB Docusate Sodium* (Colace*) 100 Mg Capsule 100 MG ORAL TID for 30 Days, CAP Donepezil Hcl* (Donepezil Hcl*) 5 Mg Tab.rapdis 5 MG ORAL QHS, TAB Glipizide* (Glipizide*) 5 Mg Tablet 5 MG ORAL BIDBL for 30 Days, TAB Hydralazine HCl (Hydralazine HCl) 50 Mg Tablet 50 MG ORAL Q8HR for 30 Days, TAB Metoclopramide Hcl* (Reglan*) 10 Mg Tablet 5 MG ORAL BEFORE MEALS for 30 Days, TAB Pantoprazole* (Protonix*) 40 Mg Tablet.dr 40 MG ORAL BID for 30 Days, TAB Discharge Condition Upon Discharge: stable Discharge Disposition Patient was discharged to SNF/Subacute Facility(03) Discharge Diagnoses: Discharge Instructions Discharge Instructions Follow up with: myself at [facility] Special Instructions I have been assigned to complete a D/C Summary on this account. I was not involved in the patient management Evonne Ang NP (Vanchtein) Jun 26, 2017 09:04
--- NOTE | 2017-06-27 04:30 | Discharge Summary 2 SIG ---
DATE OF ADMISSION: 06/21/2017 DATE OF DISCHARGE: 06/24/2017 REASON FOR ADMISSION: 76-year-old female with a history of diabetes, hypertension, chronic renal insufficiency, history of anemia, PVD, aspiration risk , with recent diagnosis of non-STEMI, [facility]. Apparently, the patient stopped eating in the past 24 hours. Initial blood work in the halfway was suggestive for acute renal failure and hyperkalemia. Upon evaluation in the emergency room, it was found that the patient was in acute renal failure with BUN-30 and creatinine -2.4. Potassium -5.7. UA showed evidence of possible UTI. Hyperglycemia with blood sugar -333 on chemistry results. The patient was admitted for further management for acute renal failure, hyperkalemia, hyperglycemia, and possible UTI. HOSPITAL COURSE: The patient was admitted. The patient was started on hydration. The patient was started on empiric antibiotics. Followup urine culture was negative. Antibiotics stopped. Influenza screen test was negative. Chest x-ray showed atelectasis, otherwise, no acute cardiopulmonary changes. Blood culture revealed 1/4 Staph coagulase-negative, likely contaminant. Antibiotic stopped. The patient was afebrile. No leukocytosis. Electrolytes and renal parameters were closely monitored. Renal parameters improved with hydration. Acute renal failure possibly precipitated by dehydration. Upon discharge, BUN -16 and creatinine- 1.4. Potassium down to 3.6 after treatment. The patient noted to be bradycardic. Beta-elbert stopped. Blood pressure medication regimen was changed. The patient was on hydralazine. Blood pressure was controlled with current regimen. Aspirin was continued. Supplemental oxygen was provided as needed to keep saturation above 92%. Pulse oximetry was stable on room air prior to discharge. Nebulizing treatment was provided on as needed basis. The patient undergone swallow evaluation, which revealed mild oropharyngeal dysphagia with mildly increased oropharyngeal transit time, but overall grossly intact for soft, easy to chew diet and thin liquids. Nutritional assessment was done, and the patient was started on Glucerna three times a day with meals as well as snacks in between the meals. Hemoglobin A1c -9.1. While in the hospital, the blood sugar was managed with sliding scale of insulin. The patient will need tighter blood sugar control as an outpatient. Aricept was continued. The patient was working with physical and occupational therapists. DVT and GI prophylaxis was provided. The patient was clinically improving. IV fluids discontinued. Clark catheter was discontinued. The patient was stable for discharge back to [facility]. FINAL DIAGNOSES: 1. Acute renal failure, likely secondary to dehydration, resolved. 2. Hyperkalemia, resolved. 3. Hyperglycemia, resolved. 4. Diabetes mellitus. 5. Bradycardia, resolved. 6. History of cerebrovascular accident. 7. Dementia. DISCHARGE MEDICATIONS: See medication reconciliation list. DISCHARGE INSTRUCTIONS: The patient was [facility] to [facility]. FOLLOWUP: Follow up with medical doctor at the facility. Mohsen Ortiz M.D. I have been assigned to dictate discharge summary on this account and I was not involved in the patient's management. Evonne Al[facility]Ad[facility]) N.PMargarita DR: JENNIFER JOB#: [id number] CC: ROSE
== END 2017-06-24 19:00 | DRG 683 ==
LOC: EDBD 13:51 → EMR 14:05 → 2E 15:11 → EDBEDREQ 16:07 → 2E 06-22 00:30 → 3E 06-23 12:58
DX: N17.9 Acute kidney failure, unspecified (principal); N39.0 Urinary tract infection, site not specified; E11.65 Type 2 diabetes mellitus with hyperglycemia; F03.90 Unspecified dementia, unspecified severity, without behavioral disturbance, psychotic disturbance, mood disturbance, and anxiety; E87.5 Hyperkalemia; E86.0 Dehydration; R13.12 Dysphagia, oropharyngeal phase; R00.1 Bradycardia, unspecified; I69.90 Unspecified sequelae of unspecified cerebrovascular disease; R73.9 Hyperglycemia, unspecified; N18.9 Chronic kidney disease, unspecified; Z86.73 Personal history of transient ischemic attack (TIA), and cerebral infarction without residual deficits; I25.2 Old myocardial infarction; I73.9 Peripheral vascular disease, unspecified
CPT/HCPCS: 36415; 71010; 80053; 80061; 81001; 81003; 82270; 82550; 82553; 82728; 82962; 82977; 83036; 83540; 83550; 83605; 83615; 83690; 83735; 83880; 84100; 84300; 84443; 84484; 84550; 85007; 85025; 85044; 85060; 85610; 85651; 85730; 86140; 86710; 87040; 87081; 87086; 87181; 89050; 93005; 94640; 94664; 99285; J1815

== ENCOUNTER 2017-07-26 14:58 | Emergency (ER) | payer MEDICARE, OTHER ==
[~2017-07-26] VITALS: Ht 157.5 cm; Wt 49.9 kg
[~2017-07-26 14:58] MED LIST changes: +ALBUTEROL2.5 MG/3 M HHN; +NOVOLOG100 UNITS1 SUBQ
[2017-07-26 15:52] LABS: BASOPHILS % (AUTO) 0.5 % (0.0-2.0); EOSINOPHILS % (AUTO) 0.5 % (0.0-3.0); HEMATOCRIT 29.7 % (37.0-47.0); HEMOGLOBIN 8.7 G/DL (12.0-16.0); MEAN CORPUSCULAR VOLUME 76 FL (80-99); MONOCYTES % (AUTO) 7.9 % (1.0-10.0); PLATELET COUNT 226 K/UL (150-450); RED BLOOD COUNT 3.91 M/UL (4.20-5.40); RED CELL DISTRIBUTION WIDTH 12.6 % (11.6-14.8); WHITE BLOOD COUNT 10.5 K/UL (4.8-10.8)
--- NOTE | 2017-07-26 15:53 | Diagnostic Imaging Report ---
Indication: Chest pain Comparison: 06/21/2017 A single view chest radiograph was obtained. Findings: Cardiomediastinal appearance is within normal limits for age. Aorta is mildly calcified. Pulmonary vascularity is appropriate. The diaphragmatic contour is smooth and costophrenic angles are sharp. No pleural effusions are identified. The bones are osteopenic. There are old rib fractures on the left. Impression: No acute findings
[2017-07-26 15:59] LABS: ANION GAP 6 mmol/L (5-15); BLOOD UREA NITROGEN 34 mg/dL (7-18); CALCIUM 8.5 MG/DL (8.5-10.1); CARBON DIOXIDE 26 MMOL/L (21-32); CHLORIDE 105 MMOL/L (98-107); CREATININE 1.8 MG/DL (0.55-1.30); POTASSIUM 5.2 MMOL/L (3.5-5.1); SODIUM 137 MMOL/L (136-145)
[2017-07-26 16:14] LABS: ALANINE AMINOTRANSFERASE 20 U/L (12-78); ALBUMIN 2.9 G/DL (3.4-5.0); ALBUMIN/GLOBULIN RATIO 0.7 (1.0-2.7); ALKALINE PHOSPHATASE 57 U/L (46-116); ASPARTATE AMINO TRANSFERASE 28 U/L (15-37); BILIRUBIN,TOTAL 0.2 MG/DL (0.2-1.0); CKMB 2.5 NG/ML (0.0-3.6); CREATINE KINASE 657 U/L (26-308)
[2017-07-26 16:33] LABS: APPEARANCE,URINE CLEAR; BILIRUBIN, URINE NEGATIVE (NEGATIVE); COLOR,URINE PALE YELLOW; GLUCOSE, URINE (UA) 4+ (NEGATIVE); KETONES,URINE NEGATIVE (NEGATIVE); LEUKOCYTE ESTERASE ,URINE NEGATIVE (NEGATIVE); NITRITE,URINE NEGATIVE (NEGATIVE); PH,URINE 7 (4.5-8.0); PROTEIN,URINE 3+ (NEGATIVE); UROBILINOGEN,URINE NORMAL MG/DL (0.0-1.0)
[2017-07-26 16:54] VITALS: BP 152/82
--- NOTE | 2017-07-26 17:05 | Emergency Room Report ---
History of Present Illness General Chief Complaint: General Complaint Source: Medical Record (Mary Posey) Present Illness HPI 77-year-old female presents to the emergency department brought by ambulance sent from shelter facility for increased generalized weakness and lethargy . Paperwork sent from shelter facility shows that patient currently is being administered insulin, hydralazine and glipizide. . She has history of diabetes, anemia, PAD, and aspiration prone with recent NSTEMI. Patient also has history of dementia. Dr. Mora is her PMD. The patient herself is a poor historian and nonverbal making history of present illness and ROS difficult to obtain. (Mary Posey) Allergies: Coded Allergies: No Known Allergies (Unverified , 06/10/17) Patient History Past Medical History: see triage record, other Past Surgical History: none Pertinent Family History: none Reviewed Nursing Documentation: PMH: Agreed, PSxH: Agreed (Mary Posey) Nursing Documentation-PMH Past Medical History: No History, Except For Hx Cardiac Problems: Yes - PERIPHERAL VASCULAR DISEASE. ANEMIA Hx Hypertension: Yes Hx Diabetes: Yes Hx Cancer: No Hx Gastrointestinal Problems: Yes - GERD Hx Neurological Problems: Yes - DEMENTIA Hx Dementia: Yes Hx Weakness: Yes (Mary Posey) Review of Systems All Other Systems: limited - Pt. non verbal information is obtained from Pt. face-sheet and packet sent from SNF. (Mary Posey) Physical Exam Vital Signs Date Time Temp Pulse Resp B/P (MAP) Pulse Ox O2 Delivery O2 Flow Rate FiO2 07/26/17 14:57 98.2 78 20 152/82 98 Room Air Sp02 EP Interpretation: reviewed, normal General Appearance: no apparent distress, Chronically Ill Head: normocephalic, atraumatic ENT: moist mucus membranes Neck: no meningismus, no bony tend Respiratory: lungs clear, normal breath sounds, no rhonchi, no respiratory distress, no wheezing Cardiovascular #1: regular rate, rhythm, no edema, normal capillary refill Gastrointestinal: non tender, soft Rectal: deferred Genitourinary: deferred Musculoskeletal: non-tender, other - pt. has muscle wasting in the extremities , not ambulatory. Neurologic: alert, responsive, other - unable to determine orientation, pt. sparingly verbal. non ambulatory, weak department sales manager strength bilaterally but equal. Skin: no rash, warm/dry, normal turgor (Mary Posey) Medical Decision Making PA Attestation Dr. West is my supervising Physician whom patient management has been discussed with. (Mary Posey) Medicare Attestation The history of Tanya Padilla has been reviewed and management options for her have been examined and discussed by Puma West. I have personally examined and interviewed the patient. Case was also discussed with who agrees with the care home disposition and followup ([facility] D.O.) Diagnostic Impression: Primary Impression: Acute kidney injury Additional Impressions: Weakness Anemia Qualified Codes: D64.9 - Anemia, unspecified Hyperkalemia ER Course 77-year-old female presents to the emergency department brought by ambulance sent from shelter facility for increased generalized weakness and lethargy . Paperwork sent from shelter facility shows that patient currently is being administered insulin, hydralazine and glipizide. . She has history of diabetes, anemia, PAD, and aspiration prone with recent NSTEMI. Patient also has history of dementia. Dr. Mora is her PMD. The patient herself is a poor historian and nonverbal making history of present illness and ROS difficult to obtain. Ddx considered but are not limited to :, MS, drug intoxication, hypovolemia, infection, Rhabdomylosis,, CVA/TIA just to name a few. Vital signs: are WNL, pt. is afebrile Pt. NAD, non-toxic in appearance. will do laboratory examination. ORDERS: -CBC: anemia noted. -CMP: hyperkalemia 5.1, elevated Cr. and BUN. -Troponin: elevated 0.06 - - EK BPM NSR - no acute ST changes reviewed by Dr. West, this interpretation was scribed by JOANA Posey -CXR: no acute pathology ED INTERVENTIONS: -1 g Rocephin IM -500cc NS bolus Supervising physician has communicated with pt.'s PMD and developed treatment plan and decision to transfer back to SNF. DISCHARGE: At this time pt. is stable for d/c back to SNF, ambulance transport will be facilitated. Will provide printed patient care instructions, and any necessary prescriptions. Care plan and follow up instructions have been discussed with the patient prior to discharge. Labs Test 07/26/17 15:35 07/26/17 16:00 White Blood Count 10.5 K/UL (4.8-10.8) Red Blood Count 3.91 M/UL (4.20-5.40) Hemoglobin 8.7 G/DL (12.0-16.0) Hematocrit 29.7 % (37.0-47.0) Mean Corpuscular Volume 76 FL (80-99) Mean Corpuscular Hemoglobin 22.2 PG (27.0-31.0) Mean Corpuscular Hemoglobin Concent 29.2 G/DL (32.0-36.0) Red Cell Distribution Width 12.6 % (11.6-14.8) Platelet Count 226 K/UL (150-450) Mean Platelet Volume 6.3 FL (6.5-10.1) Neutrophils (%) (Auto) 82.0 % (45.0-75.0) Lymphocytes (%) (Auto) 9.0 % (20.0-45.0) Monocytes (%) (Auto) 7.9 % (1.0-10.0) Eosinophils (%) (Auto) 0.5 % (0.0-3.0) Basophils (%) (Auto) 0.5 % (0.0-2.0) Sodium Level 137 MMOL/L (136-145) Potassium Level 5.2 MMOL/L (3.5-5.1) Chloride Level 105 MMOL/L (98-107) Carbon Dioxide Level 26 MMOL/L (21-32) Anion Gap 6 mmol/L (5-15) Blood Urea Nitrogen 34 mg/dL (7-18) Creatinine 1.8 MG/DL (0.55-1.30) Estimat Glomerular Filtration Rate mL/min (>60) Glucose Level 287 MG/DL (74-106) Calcium Level 8.5 MG/DL (8.5-10.1) Total Bilirubin 0.2 MG/DL (0.2-1.0) Aspartate Amino Transf (AST/SGOT) 28 U/L (15-37) Alanine Aminotransferase (ALT/SGPT) 20 U/L (12-78) Alkaline Phosphatase 57 U/L (46-116) Total Creatine Kinase 657 U/L (26-308) Creatine Kinase MB 2.5 NG/ML (0.0-3.6) Creatine Kinase MB Relative Index 0.3 Troponin I 0.069 ng/mL (0.000-0.056) Total Protein 7.0 G/DL (6.4-8.2) Albumin 2.9 G/DL (3.4-5.0) Globulin 4.1 g/dL Albumin/Globulin Ratio 0.7 (1.0-2.7) Urine Color Pale yellow Urine Appearance Clear Urine pH 7 (4.5-8.0) Urine Specific [place] 1.005 (1.005-1.035) Urine Protein 3+ (NEGATIVE) Urine Glucose (UA) 4+ (NEGATIVE) Urine Ketones Negative (NEGATIVE) Urine Occult Blood 1+ (NEGATIVE) Urine Nitrite Negative (NEGATIVE) Urine Bilirubin Negative (NEGATIVE) Urine Urobilinogen Normal MG/DL (0.0-1.0) Urine Leukocyte Esterase Negative (NEGATIVE) Urine RBC 2-4 /HPF (0 - 2) Urine WBC 0-2 /HPF (0 - 2) Urine Squamous Epithelial Cells Few /LPF (NONE/OCC) Urine Amorphous Sediment Few /LPF (NONE) Urine Bacteria Few /HPF (NONE) (Mary Posey P.A.) EKG Diagnostic Results EP Interpretation: Rate: normal Rhythm: NSR ST Segments: no acute changes ASA given to the pt in ED: No PA Scribe Text - EK BPM NSR - no acute ST changes reviewed by Dr. West, this interpretation was scribed by JOANA Posey (Mray Posey P.A.) Chest X-Ray Diagnostic Results Chest X-Ray Diagnostic Results : # of Views/Limited/Complete: 1 View Indication: Chest Pain EP Interpretation: Yes PA Xray: Interpretation reviewed, by supervising MD, and agrees with findings. Interpretation: no consolidation, no effusion, no pneumothorax Impression: No acute disease Electronically Signed by: Mary Posey PA-C (Mary Posey P.A.) Last Vital Signs Date Time Temp Pulse Resp B/P (MAP) Pulse Ox O2 Delivery O2 Flow Rate FiO2 07/26/17 14:57 98.2 78 20 152/82 98 Room Air (Mary Posey) Disposition: XFER SNF Condition: Stable Referrals: ADINA GUARDADO (PCP) Mary Posey Jul 26, 2017 17:05 [facility] D.O. Jul 26, 2017 19:34
[2017-07-26] MEDS: cefTRIAXone 1 GM in NS 55 ML IVPB ONE ×2 (17:15→18:03)
[2017-07-26] MEDS ORDERED: Sodium Chloride 500ML 500 ML IV ONE (17:15)
[2017-07-26] MEDS ORDERED: Lidocaine 1% MPF 10mg/ml 5ml INJ ONE (18:15)
[2017-07-26] MEDS ORDERED: MEGESTROL400 MG/11 PO (18:26)
[2017-07-26] MEDS ORDERED: VITAMIN D1000 UNI1 ORAL (18:26)
[2017-07-26] MEDS ORDERED: REGLAN5 MG ORAL (18:26)
[2017-07-26] MEDS ORDERED: ASPIRIN EC81 MG ORAL (18:26)
[2017-07-26] MEDS ORDERED: GLIPIZIDE5 MG ORAL (18:26)
[2017-07-26] MEDS ORDERED: PROTONIX40 MG ORAL (18:26)
[2017-07-26] MEDS ORDERED: DOCUSATE SODIU100 MG ORAL (18:26)
[2017-07-26] MEDS ORDERED: MULTIVITAMINS1 EAC8 ORAL (18:26)
[2017-07-26] MEDS ORDERED: HYDRALAZINE HCL50 MG ORAL (18:26)
[2017-07-26] MEDS ORDERED: DONEPEZIL HCL5 MG ORAL (18:26)
[2017-07-26] MEDS ORDERED: ACETAMINOPHEN325 M1 ORAL (18:26)
[2017-07-26 18:30] VITALS: BP 168/66
--- NOTE | 2017-07-31 19:34 | Cardiology Report ---
APPROVED REPORT EKG Measurement Heart [id number] [place] [id number] Normal sinus rhythm with sinus arrhythmia Low voltage QRS Borderline ECG
== END 2017-07-26 18:35 ==
LOC: EDBD 14:58 → EMR 15:30
DX: N17.9 Acute kidney failure, unspecified (principal); R53.1 Weakness; D64.9 Anemia, unspecified; E87.5 Hyperkalemia; I10 Essential (primary) hypertension; E11.9 Type 2 diabetes mellitus without complications; Z79.4 Long term (current) use of insulin; K21.9 Gastro-esophageal reflux disease without esophagitis; F03.90 Unspecified dementia, unspecified severity, without behavioral disturbance, psychotic disturbance, mood disturbance, and anxiety
CPT/HCPCS: 36415; 71010; 80053; 81003; 82550; 82553; 84484; 85025; 93005; 96372; 99283; J0696

== ENCOUNTER 2017-07-31 16:04 | Inpatient (IN) | payer MEDICARE, OTHER ==
[~2017-07-31] VITALS: Ht 165.1 cm; Wt 81.6 kg
[~2017-07-31 16:04] MED LIST changes: +DOCUSATE SODIU100 MG ORAL; +DONEPEZIL HCL5 MG ORAL; +HYDRALAZINE HCL50 MG ORAL; +MEGESTROL400 MG/11 PO; +MULTIVITAMINS1 EAC8 ORAL; +REGLAN5 MG ORAL
[2017-07-31 16:45] VITALS: BP 144/63
--- NOTE | 2017-07-31 17:26 | Emergency Room Report ---
History of Present Illness General Chief Complaint: Female Urogenital Problems Source: Patient, Medical Record Present Illness HPI 77-year-old female, coming from group home, hypertension, diabetes, dysphasia , UTI, transferred to emergency room for low urine output. Only 100 mL of urine. Patient currently awake, oriented x1, not giving much history. Allergies: Coded Allergies: No Known Allergies (Unverified , 06/10/17) Patient History Past Medical History: see triage record Past Surgical History: none Pertinent Family History: none Reviewed Nursing Documentation: PMH: Agreed, PSxH: Agreed Nursing Documentation-PMH Hx Cardiac Problems: Yes - PERIPHERAL VASCULAR DISEASE. ANEMIA Hx Hypertension: Yes Hx Diabetes: Yes Hx Cancer: No Hx Gastrointestinal Problems: Yes - GERD Hx Neurological Problems: Yes - DEMENTIA Hx Dementia: Yes Hx Weakness: Yes Review of Systems All Other Systems: limited - confused/poor historian Physical Exam Vital Signs Date Time Temp Pulse Resp B/P (MAP) Pulse Ox O2 Delivery O2 Flow Rate FiO2 07/31/17 16:02 98.1 69 18 128/63 98 Room Air Sp02 EP Interpretation: reviewed, normal General Appearance: alert, mild distress, thin, other, Chronically Ill Head: normocephalic, atraumatic Eyes: bilateral eye normal inspection, bilateral eye PERRL, bilateral eye EOMI ENT: normal ENT inspection, normal pharynx, normal voice, moist mucus membranes Neck: normal inspection, full range of motion, supple Respiratory: normal inspection, lungs clear, normal breath sounds, no respiratory distress, no retraction, no wheezing, speaking full sentences, chest symmetrical Cardiovascular #1: normal inspection, regular rate, rhythm, normal capillary refill Cardiovascular #2: 2+ radial (R), 2+ radial (L) Gastrointestinal: normal inspection, non tender, soft, non-distended, no guarding Musculoskeletal: normal inspection, back normal, normal range of motion, non- tender Neurologic: other - aox2, moves ext Psychiatric: other - confused Skin: normal inspection, normal color, no rash, warm/dry, well hydrated, normal turgor Medical Decision Making Diagnostic Impression: Primary Impression: Rhabdomyolysis Additional Impressions: Renal failure Hyperkalemia ER Course 77-year-old female, decreased urine output DDX: Dehydration, UTI, renal failure Plan: Obtain labs, ua, EKG ER course: Hyperkalemia, cocktail given, rhabdomyolysis, IV fluids given ceftriaxone given to continue tx for UTI Disposition: Patient is to be admitted to telemetry D/W hospitalist Dr Oro who has accepted pt for admission Please note that this Emergency Department Report was dictated using [employer] information analyst technology software, occasionally this can lead to erroneous entry secondary to interpretation by the dictation equipment. EKG Diagnostic Results EP Interpretation: Yes Rate: normal Rhythm: NSR ST Segments: No acute changes ASA given to patient: No Rhythm Strip EP Interpretation: Yes Rate: 70 Rhythm: NSR, no PVCs, no ectopy Chest X-ray CXR: Ordered: Yes 1 view Indication: ams EP interpretation: Yes Interpretation: No consolidation, no effusion, no PTX, no acute cardiopulmonary disease Impression: No acute disease Electronically signed by Veronique Lemus MD Laboratory Tests Test 07/31/17 17:06 White Blood Count 13.7 K/UL (4.8-10.8) H Red Blood Count 3.82 M/UL (4.20-5.40) L Hemoglobin 8.3 G/DL (12.0-16.0) L Hematocrit 28.8 % (37.0-47.0) L Mean Corpuscular Volume 76 FL (80-99) L Mean Corpuscular Hemoglobin 21.7 PG (27.0-31.0) L Mean Corpuscular Hemoglobin Concent 28.7 G/DL (32.0-36.0) L Red Cell Distribution Width 12.9 % (11.6-14.8) Platelet Count 320 K/UL (150-450) Mean Platelet Volume 6.7 FL (6.5-10.1) Neutrophils (%) (Auto) 86.5 % (45.0-75.0) H Lymphocytes (%) (Auto) 7.1 % (20.0-45.0) L Monocytes (%) (Auto) 5.3 % (1.0-10.0) Eosinophils (%) (Auto) 0.7 % (0.0-3.0) Basophils (%) (Auto) 0.4 % (0.0-2.0) Urine Color Pale yellow Urine Appearance Slightly cloudy Urine pH 5 (4.5-8.0) Urine Specific [place] 1.010 (1.005-1.035) Urine Protein 3+ (NEGATIVE) H Urine Glucose (UA) 3+ (NEGATIVE) H Urine Ketones Negative (NEGATIVE) Urine Occult Blood 2+ (NEGATIVE) H Urine Nitrite Negative (NEGATIVE) Urine Bilirubin Negative (NEGATIVE) Urine Urobilinogen Normal MG/DL (0.0-1.0) Urine Leukocyte Esterase 1+ (NEGATIVE) H Urine RBC 2-4 /HPF (0 - 2) H Urine WBC 5-10 /HPF (0 - 2) H Urine Squamous Epithelial Cells Occasional /LPF Urine Amorphous Sediment Moderate /LPF (NONE) H Urine Bacteria Few /HPF (NONE) Sodium Level 131 MMOL/L (136-145) L Potassium Level 5.6 MMOL/L (3.5-5.1) H Chloride Level 101 MMOL/L (98-107) Carbon Dioxide Level 22 MMOL/L (21-32) Anion Gap 9 mmol/L (5-15) Blood Urea Nitrogen 57 mg/dL (7-18) H Creatinine 2.1 MG/DL (0.55-1.30) H Estimate Glomerular Filtration Rate mL/min (>60) Glucose Level 347 MG/DL (74-106) H Calcium Level 8.8 MG/DL (8.5-10.1) Total Bilirubin 0.2 MG/DL (0.2-1.0) Aspartate Amino Transferase (AST) 64 U/L (15-37) H Alanine Aminotransferase (ALT) 66 U/L (12-78) Alkaline Phosphatase 93 U/L (46-116) Total Creatine Kinase 1542 U/L (26-308) H Pro-B-Type Natriuretic Peptide 911 pg/mL (0-125) H Total Protein 7.1 G/DL (6.4-8.2) Albumin 2.3 G/DL (3.4-5.0) L Globulin 4.8 g/dL Albumin/Globulin Ratio 0.5 (1.0-2.7) L Last Vital Signs Date Time Temp Pulse Resp B/P (MAP) Pulse Ox O2 Delivery O2 Flow Rate FiO2 07/31/17 16:02 98.1 69 18 128/63 98 Room Air Disposition: ADMITTED INPATIENT Condition: Veronique Christie M.D. Jul 31, 2017 17:26
[2017-07-31 17:30] LABS: HEMATOCRIT 28.8 % (37.0-47.0); HEMOGLOBIN 8.3 G/DL (12.0-16.0); MEAN CORPUSCULAR VOLUME 76 FL (80-99); PLATELET COUNT 320 K/UL (150-450); RED BLOOD COUNT 3.82 M/UL (4.20-5.40); RED CELL DISTRIBUTION WIDTH 12.9 % (11.6-14.8); WHITE BLOOD COUNT 13.7 K/UL (4.8-10.8)
[2017-07-31 17:31] LABS: LYMPHOCYTES % (AUTO) 7.1 % (20.0-45.0); MONOCYTES % (AUTO) 5.3 % (1.0-10.0); NEUTROPHILS % (AUTO) 86.5 % (45.0-75.0)
[2017-07-31 17:32] LABS: BASOPHILS % (AUTO) 0.4 % (0.0-2.0); EOSINOPHILS % (AUTO) 0.7 % (0.0-3.0)
[2017-07-31 17:50] LABS: APPEARANCE,URINE SLIGHTLY CLOUDY; BILIRUBIN, URINE NEGATIVE (NEGATIVE); COLOR,URINE PALE YELLOW; GLUCOSE, URINE (UA) 3+ (NEGATIVE); KETONES,URINE NEGATIVE (NEGATIVE); LEUKOCYTE ESTERASE ,URINE 1+ (NEGATIVE); NITRITE,URINE NEGATIVE (NEGATIVE); PH,URINE 5 (4.5-8.0); PROTEIN,URINE 3+ (NEGATIVE); UROBILINOGEN,URINE NORMAL MG/DL (0.0-1.0)
[2017-07-31 18:00] VITALS: BP 156/59
[2017-07-31 18:00] LABS: ANION GAP 9 mmol/L (5-15); BLOOD UREA NITROGEN 57 mg/dL (7-18); CALCIUM 8.8 MG/DL (8.5-10.1); CARBON DIOXIDE 22 MMOL/L (21-32); CHLORIDE 101 MMOL/L (98-107); CREATININE 2.1 MG/DL (0.55-1.30); POTASSIUM 5.6 MMOL/L (3.5-5.1); SODIUM 131 MMOL/L (136-145)
[2017-07-31 18:14] LABS: ALANINE AMINOTRANSFERASE 66 U/L (12-78); ALBUMIN 2.3 G/DL (3.4-5.0); ALBUMIN/GLOBULIN RATIO 0.5 (1.0-2.7); ALKALINE PHOSPHATASE 93 U/L (46-116); ASPARTATE AMINO TRANSFERASE 64 U/L (15-37); BILIRUBIN,TOTAL 0.2 MG/DL (0.2-1.0); CREATINE KINASE 1542 U/L (26-308)
[2017-07-31] MEDS ORDERED: Sodium Bicarbonate 50ml Carp IV ONE (18:15)
[2017-07-31] MEDS ORDERED: Calcium Gluconate 1gm/10ml vial IVP ONE (18:15)
[2017-07-31 19:00] VITALS: BP 149/62
[2017-07-31] MEDS ORDERED: cefTRIAXone 1 GM in NS 55 ML IVPB ONE (19:15)
[2017-08-01] VITALS: BP_SYST 128; BP_SYST 149; BP_DIAS 62; BP_DIAS 89
--- NOTE | 2017-08-01 00:23 | History & Physical ---
History and Physical History & Physicial 7-year-old female, coming from detention, hypertension, diabetes, dysphasia, UTI, transferred to emergency room for low urine output. Only 100 mL of urine. Patient currently awake, oriented x1, not giving much history. Allergies: Coded Allergies: No Known Allergies (Unverified , 06/10/17) Hx Cardiac Problems: Yes - PERIPHERAL VASCULAR DISEASE. ANEMIA Hx Hypertension: Yes Hx Diabetes: Yes Hx Gastrointestinal Problems: Yes - GERD Hx Neurological Problems: Yes - DEMENTIA Hx Dementia: Yes Hx Weakness: Yes Acute renal failure HyperKalemia, Hyperglycemia , UTI Bradycardia PH 1. [id number] myocardial infarction. 2. Evidence of urinary tract infection. E coli 3. Renal failure and diabetic nephropathy. 4. Diabetes mellitus. 5. Evidence of dehydration. 6. History of anemia. 7. History of peripheral vascular disease. 8. Aspiration percautions IMP: - UTI (urinary tract infection) with H/O MDR E.coli , will send urine culture and start cefepime empirically - Sepsis - Renal failure - Diabetes mellitus - Anemia Plan: ID eval antibiotics hydrate BS control # [id number] ADINA GUARDADO Aug 01, 2017 00:23
[2017-08-01 04:00] VITALS: BP 122/89
[2017-08-01 07:06] VITALS: BP 110/77
--- NOTE | 2017-08-01 08:35 | Diagnostic Imaging Report ---
Indication: Shortness of breath Technique: One view of the chest Comparison: none Findings: Left rib fracture deformities are again demonstrated. The lungs and pleural spaces remain clear. Heart size is normal. The aorta is ectatic and calcified Impression: No acute process
[2017-08-01] MEDS: Docusate 100mg cap ORAL SCH ×3 (09:27→17:57)
[2017-08-01] MEDS: Aspirin EC 81mg tab ORAL SCH (09:27)
[2017-08-01] MEDS: Heparin 5000 units/ml inj SUBQ SCH ×2 (09:28→20:57)
[2017-08-01 10:20] LABS: HEMATOCRIT 26.7 % (37.0-47.0); HEMOGLOBIN 7.8 G/DL (12.0-16.0); MEAN CORPUSCULAR VOLUME 76 FL (80-99); PLATELET COUNT 329 K/UL (150-450); RED CELL DISTRIBUTION WIDTH 12.6 % (11.6-14.8); WHITE BLOOD COUNT 13.6 K/UL (4.8-10.8)
[2017-08-01 10:31] LABS: ANION GAP 9 mmol/L (5-15); BLOOD UREA NITROGEN 45 mg/dL (7-18); CARBON DIOXIDE 23 MMOL/L (21-32); CHLORIDE 103 MMOL/L (98-107); CREATININE 1.6 MG/DL (0.55-1.30); SODIUM 135 MMOL/L (136-145)
[2017-08-01 10:47] LABS: ALANINE AMINOTRANSFERASE 55 U/L (12-78); ALBUMIN 2.2 G/DL (3.4-5.0); ALBUMIN/GLOBULIN RATIO 0.4 (1.0-2.7); ALKALINE PHOSPHATASE 98 U/L (46-116); ASPARTATE AMINO TRANSFERASE 39 U/L (15-37); BILIRUBIN,TOTAL 0.3 MG/DL (0.2-1.0); CHOLESTEROL 164 MG/DL (< 200); FERRITIN 949 NG/ML (8-388); HDL CHOLESTEROL 37 MG/DL (40-60); PHOSPHORUS 3.5 MG/DL (2.5-4.9); TRIGLYCERIDES 81 MG/DL (30-150)
[2017-08-01 11:12] LABS: % IRON SATURATION 10 % (15-50); IRON 26 ug/dL (50-175); TOTAL IRON BINDING CAPACITY 264 ug/dL (250-450)
--- NOTE | 2017-08-01 13:06 | Infectious Diseases Prog Note ---
Assessment/Plan Problems: (1) UTI (urinary tract infection) Assessment & Plan: with H/O MDR E.coli , will send urine culture and start cefepime empirically (2) Sepsis Assessment & Plan: unclear source, could be due to UTI, will send blood culture and start cefepime empirically (3) Renal failure Assessment & Plan: suspect due to the above, continue hydration, renal is following , avoid nephrotoxic meds (4) Diabetes mellitus Assessment & Plan: recommend tight glycemic control to keep blood glucose between 100-140 Subjective Allergies: Coded Allergies: No Known Allergies (Unverified , 06/10/17) Objective Vital Signs Last 24 Hour Vital Signs Date Time Temp Pulse Resp B/P (MAP) Pulse Ox O2 Delivery O2 Flow Rate FiO2 08/01/17 08:15 98.0 77 19 110/77 96 Room Air 80 08/01/17 08:00 81 08/01/17 07:06 98.0 80 19 110/77 96 Room Air 08/01/17 04:00 98.0 77 19 122/89 96 Room Air 08/01/17 00:00 98.0 60 19 149/62 96 Room Air 08/01/17 00:00 98.0 72 19 128/89 96 Room Air 07/31/17 19:00 98.0 72 19 149/62 96 Room Air 07/31/17 18:00 98.1 74 17 156/59 97 Room Air 07/31/17 16:45 98.7 70 16 144/63 97 Room Air 07/31/17 16:02 98.1 69 18 128/63 98 Room Air Height (Feet): 5 Height (Inches): 5.00 Weight (Pounds): 180 Laboratory Tests Test 07/31/17 17:06 08/01/17 09:55 White Blood Count 13.7 K/UL (4.8-10.8) H 13.6 K/UL (4.8-10.8) H Red Blood Count 3.82 M/UL (4.20-5.40) L 3.50 M/UL (4.20-5.40) L Hemoglobin 8.3 G/DL (12.0-16.0) L 7.8 G/DL (12.0-16.0) L Hematocrit 28.8 % (37.0-47.0) L 26.7 % (37.0-47.0) L Mean Corpuscular Volume 76 FL (80-99) L 76 FL (80-99) L Mean Corpuscular Hemoglobin 21.7 PG (27.0-31.0) L 22.4 PG (27.0-31.0) L Mean Corpuscular Hemoglobin Concent 28.7 G/DL (32.0-36.0) L 29.4 G/DL (32.0-36.0) L Red Cell Distribution Width 12.9 % (11.6-14.8) 12.6 % (11.6-14.8) Platelet Count 320 K/UL (150-450) 329 K/UL (150-450) Mean Platelet Volume 6.7 FL (6.5-10.1) 6.5 FL (6.5-10.1) Neutrophils (%) (Auto) 86.5 % (45.0-75.0) H % (45.0-75.0) Lymphocytes (%) (Auto) 7.1 % (20.0-45.0) L % (20.0-45.0) Monocytes (%) (Auto) 5.3 % (1.0-10.0) % (1.0-10.0) Eosinophils (%) (Auto) 0.7 % (0.0-3.0) % (0.0-3.0) Basophils (%) (Auto) 0.4 % (0.0-2.0) % (0.0-2.0) Urine Color Pale yellow Urine Appearance Slightly cloudy Urine pH 5 (4.5-8.0) Urine Specific [place] 1.010 (1.005-1.035) Urine Protein 3+ (NEGATIVE) H Urine Glucose (UA) 3+ (NEGATIVE) H Urine Ketones Negative (NEGATIVE) Urine Occult Blood 2+ (NEGATIVE) H Urine Nitrite Negative (NEGATIVE) Urine Bilirubin Negative (NEGATIVE) Urine Urobilinogen Normal MG/DL (0.0-1.0) Urine Leukocyte Esterase 1+ (NEGATIVE) H Urine RBC 2-4 /HPF (0 - 2) H Urine WBC 5-10 /HPF (0 - 2) H Urine Squamous Epithelial Cells Occasional /LPF Urine Amorphous Sediment Moderate /LPF (NONE) H Urine Bacteria Few /HPF (NONE) Sodium Level 131 MMOL/L (136-145) L 135 MMOL/L (136-145) L Potassium Level 5.6 MMOL/L (3.5-5.1) H 5.0 MMOL/L (3.5-5.1) Chloride Level 101 MMOL/L (98-107) 103 MMOL/L (98-107) Carbon Dioxide Level 22 MMOL/L (21-32) 23 MMOL/L (21-32) Anion Gap 9 mmol/L (5-15) 9 mmol/L (5-15) Blood Urea Nitrogen 57 mg/dL (7-18) H 45 mg/dL (7-18) H Creatinine 2.1 MG/DL (0.55-1.30) H 1.6 MG/DL (0.55-1.30) H Estimat Glomerular Filtration Rate mL/min (>60) mL/min (>60) Glucose Level 347 MG/DL (74-106) H 327 MG/DL (74-106) H Calcium Level 8.8 MG/DL (8.5-10.1) 9.0 MG/DL (8.5-10.1) Total Bilirubin 0.2 MG/DL (0.2-1.0) 0.3 MG/DL (0.2-1.0) Aspartate Amino Transf (AST/SGOT) 64 U/L (15-37) H 39 U/L (15-37) H Alanine Aminotransferase (ALT/SGPT) 66 U/L (12-78) 55 U/L (12-78) Alkaline Phosphatase 93 U/L (46-116) 98 U/L (46-116) Total Creatine Kinase 1542 U/L (26-308) H Pro-B-Type Natriuretic Peptide 911 pg/mL (0-125) H 1266 pg/mL (0-125) H Total Protein 7.1 G/DL (6.4-8.2) 7.1 G/DL (6.4-8.2) Albumin 2.3 G/DL (3.4-5.0) L 2.2 G/DL (3.4-5.0) L Globulin 4.8 g/dL 4.9 g/dL Albumin/Globulin Ratio 0.5 (1.0-2.7) L 0.4 (1.0-2.7) L Differential Total Cells Counted 100 Neutrophils % (Manual) 80 % (45-75) H Lymphocytes % (Manual) 10 % (20-45) L Monocytes % (Manual) 8 % (1-10) Eosinophils % (Manual) 2 % (0-3) Basophils % (Manual) 0 % (0-2) Band Neutrophils 0 % (0-8) Platelet Estimate Adequate Platelet Morphology Normal Hypochromasia 1+ Microcytosis 1+ Hemoglobin A1c 9.4 % (4.3-6.0) H Uric Acid 6.6 MG/DL (2.6-7.2) Phosphorus Level 3.5 MG/DL (2.5-4.9) Magnesium Level 3.0 MG/DL (1.8-2.4) H Iron Level 26 ug/dL (50-175) L Total Iron Binding Capacity 264 ug/dL (250-450) Percent Iron Saturation 10 % (15-50) L Unsaturated Iron Binding 238 ug/dL (112-346) Ferritin 949 NG/ML (8-388) H Troponin I 0.018 ng/mL (0.000-0.056) Triglycerides Level 81 MG/DL (30-150) Cholesterol Level 164 MG/DL (< 200) LDL Cholesterol 111 mg/dL (<100) H HDL Cholesterol 37 MG/DL (40-60) L Cholesterol/HDL Ratio 4.4 (3.3-4.4) Vitamin B12 Level 784 PG/ML (193-986) Folate 13.3 NG/ML (8.6-58.9) Current Medications Medications (Trade) Dose Ordered Sig/Nancy Route PRN Reason Start Time Stop Time Status Last Admin Dose Admin Acetaminophen (Tylenol) 650 mg Q6H PRN ORAL FOR PAIN. NTE 3GM/24HRS. 08/01/17 00:15 08/31/17 00:14 Aspirin (Ecotrin) 81 mg DAILY ORAL 08/01/17 09:00 08/31/17 08:59 08/01/17 09:27 Dextrose (Dextrose 50%) STAT PRN IV Hypoglycemia 08/01/17 12:00 08/31/17 11:59 Docusate Sodium (Colace) 100 mg THREE TIMES A DAY ORAL 08/01/17 09:00 08/31/17 08:59 08/01/17 09:27 Famotidine (Pepcid I.v.) 20 mg Q24H IVP 08/01/17 09:00 08/31/17 08:59 Heparin Sodium (Porcine) (Heparin 5000 units/ml) 5,000 units EVERY 12 HOURS SUBQ 08/01/17 09:00 08/31/17 08:59 08/01/17 09:28 Insulin Aspart (NovoLOG) Q6HR SUBQ 08/01/17 12:30 08/31/17 12:29 Sodium Chloride 1,000 ml @ 75 mls/hr [id number] IV 08/01/17 00:15 08/31/17 00:14 Abdiel Payan M.D. Aug 01, 2017 13:05
[2017-08-01] MEDS: NovoLOG Insulin Flexpen SUBQ SCH ×3 (14:09→20:58)
[2017-08-01] MEDS: Cefepime HCl 1 GM in D5W 55 ML IVPB SCH (15:01)
--- NOTE | 2017-08-01 17:45 | History and Physical Report ---
DATE OF ADMISSION: 07/31/2017 HISTORY OF PRESENT ILLNESS: The patient is a 77-year-old female, a patient of [facility]. The patient was transferred to [place] for emergency room for urinary retention and weakness. The patient was found to have evidence of UTI, hyperglycemia and renal failure and also found to have hyperkalemia. The patient is being admitted for further management. PAST MEDICAL HISTORY: Significant for peripheral vascular disease, anemia, hypertension, diabetes, dementia and also history of previous urinary tract infection, hyperkalemia and bradycardia. The patient has been dehydrated in the past due to poor p.o. intake and had also non-ST elevation myocardial infarction. The patient is on aspiration precaution. PHYSICAL EXAMINATION: GENERAL: The patient is lethargic. VITAL SIGNS: Temperature 98 degrees, pulse rate 77, blood pressure 110/77 and pulse oximetry is 96%. The patient is arousable, not in any respiratory distress. She is pale. LUNGS: No wheezes. No rhonchi. Decreased breath sounds over the bases. HEART: Regular. BREASTS: Atrophic. ABDOMEN: Soft. EXTREMITIES: Evidence of the left hip surgery and have poor pulses over the lower extremities. LABORATORY AND DIAGNOSTIC DATA: The patient has mild leukocytosis with a white blood cells of 13.7 and hemoglobin of 8.3. Sodium 131, potassium of 5.6, and creatinine of 2.1 Albumin of 2.3. Urine has 10 WBCs, 1+ leukocyte esterase, and 3+ protein. IMPRESSION: The patient has urinary tract infection, possible sepsis, acute renal failure, chronic renal insufficiency, diabetes mellitus, out of control, anemia and urinary outlet obstruction. PLAN: The patient will be on IV hydration and antibiotics. We will check the blood sugar and blood pressure and we will monitor the renal parameters and according to how the patient's condition evolves, we will make the proper changes in our future management. Mohsen Ortiz M.D. DR: LUDMILA JOB#: [id number] CC:
[2017-08-01] MEDS ORDERED: Iron Sucrose 200 MG in NS 110 ML IV ONE (18:00)
[2017-08-01 21:00] VITALS: BP 141/67
--- NOTE | 2017-08-01 22:00 | Consultation ---
DATE OF CONSULTATION: 08/01/2017 INFECTIOUS DISEASE CONSULTATION REQUESTING PHYSICIAN: Mohsen Ortiz M.D. REASON FOR CONSULTATION: Urinary tract infection, possible sepsis with history of multi-drug resistant E. coli, recommendation for antibiotics treatment. HISTORY OF PRESENT ILLNESS: The patient is a 77-year-old female, who lives at [facility] with past medical history of hypertension, diabetes, dysphagia, and urinary tract infection, was transferred to the emergency room at [facility] for dehydration and low urine output. The patient had only 100 mL out at the longterm. Her oral intake has decreased over the last couple of days. So, she was sent for further evaluation and management of dehydration. The patient was found to have significant leukocytosis in the emergency room. She also had evidence of urinary tract infection. So, she received one dose of ceftriaxone and Infectious Disease consultation was requested for further evaluation and management. As of note, the patient is poor historian, cannot provide any history. History was mainly obtained from the medical record and the nursing staff. PAST MEDICAL HISTORY: Significant for peripheral vascular disease, anemia, hypertension, diabetes, GERD, and dementia. PAST SURGICAL HISTORY: Negative. MEDICATIONS: She received ceftriaxone 1 gram dose in the emergency room. For the rest of her medications, please refer to MAR. SOCIAL HISTORY: She is a longterm resident. Lives at [facility]. No recent history of drugs, tobacco or alcohol abuse. PAST FAMILY HISTORY: Unable to obtain. REVIEW OF SYSTEMS: Unable to obtain, as the patient cannot provide any history. PHYSICAL EXAMINATION: GENERAL: Elderly female, lying in bed, comfortable, does not follow commands, responds to painful stimuli, not in acute distress. VITAL SIGNS: Temperature 98 degrees, pulse 77, respiration 19, blood pressure 110/77 and saturation 96% on room air. HEENT: Normocephalic and atraumatic. Pupils not reactive to lights due to cataract. Moist oral mucosa. No exudate. NECK: Supple. No lymphadenopathy. CARDIOVASCULAR: Regular rate and rhythm. No murmur or gallop. LUNGS: Clear bilaterally. Diminished breathing sounds at the bases. No wheezing or rhonchi. ABDOMEN: Soft, nontender, and not distended. Normal bowel sounds. No hepatosplenomegaly. No ascites. EXTREMITIES: No edema. No cyanosis. No clubbing. SKIN: No rash. No hives. LABORATORY AND DIAGNOSTIC DATA: Labs showed white count of 13.6, hemoglobin 7.8, and platelet count of 329. BUN of 45 and creatinine of 1.6. AST of 39, ALT of 55 and alkaline phosphatase of 98. Urinalysis showed negative nitrite, +1 leukocyte esterase, WBC 5 to 10, and few bacteria. Imaging, chest x-ray showed no acute process. Only chronic left rib fracture deformity demonstrated. Microbiology in May, the patient had urine culture, which grew multidrug resistant E. coli, resistant to ampicillin, ciprofloxacin and gentamicin. ASSESSMENT AND RECOMMENDATION: 1. Urinary tract infection with history of multi-drug resistant Escherichia coli. We will send urine culture and start cefepime empiric coverage. 2. Sepsis with leukocytosis, unclear source, suspect urinary tract infection related. We will send blood culture and start cefepime empiric coverage. 3. Acute renal failure, suspect due to dehydration. Continue intravenous fluids. Renal service is following. Avoid nephrotoxic medications. 4. Diabetes. Recommend tight glycemic control to keep blood glucose between 100 to 140. Thank you for the consultation of Infectious Disease. We will continue to follow. Abdiel Payan M.D. DR: CALVIN JOB#: [id number] CC:
[2017-08-02] VITALS: BP 146/71
[2017-08-02 04:00] VITALS: BP 136/65
[2017-08-02] MEDS: NovoLOG Insulin Flexpen SUBQ SCH ×3 (06:48→18:00)
[2017-08-02 07:45] LABS: MEAN CORPUSCULAR VOLUME 75 FL (80-99); PLATELET COUNT 323 K/UL (150-450); RED BLOOD COUNT 2.95 M/UL (4.20-5.40); RED CELL DISTRIBUTION WIDTH 12.8 % (11.6-14.8); WHITE BLOOD COUNT 10.3 K/UL (4.8-10.8)
[2017-08-02 08:18] LABS: ALANINE AMINOTRANSFERASE 42 U/L (12-78); ALBUMIN 1.7 G/DL (3.4-5.0); ALBUMIN/GLOBULIN RATIO 0.4 (1.0-2.7); ALKALINE PHOSPHATASE 81 U/L (46-116); ANION GAP 10 mmol/L (5-15); ASPARTATE AMINO TRANSFERASE 27 U/L (15-37); BILIRUBIN,TOTAL 0.2 MG/DL (0.2-1.0); BLOOD UREA NITROGEN 47 mg/dL (7-18); CARBON DIOXIDE 20 MMOL/L (21-32); CHLORIDE 108 MMOL/L (98-107); CREATININE 1.7 MG/DL (0.55-1.30); PHOSPHORUS 3.8 MG/DL (2.5-4.9); POTASSIUM 5.2 MMOL/L (3.5-5.1); SODIUM 138 MMOL/L (136-145)
[2017-08-02] MEDS: Cefepime HCl 1 GM in D5W 55 ML IVPB SCH (09:00)
[2017-08-02] MEDS: Docusate 100mg cap ORAL SCH ×3 (09:00→18:00)
[2017-08-02] MEDS: Aspirin EC 81mg tab ORAL SCH (09:57)
[2017-08-02] MEDS: Heparin 5000 units/ml inj SUBQ SCH ×2 (10:01→21:16)
--- NOTE | 2017-08-02 13:29 | General Progress Note ---
Assessment/Plan Problem List: (1) Renal failure (ARF), acute on chronic ICD Codes: N17.9 - Acute kidney failure, unspecified; N18.9 - Chronic kidney disease, unspecified SNOMED: 799457756 (2) Hyperkalemia ICD Codes: E87.5 - Hyperkalemia SNOMED: 96529747 (3) UTI (urinary tract infection) ICD Codes: N39.0 - Urinary tract infection, site not specified SNOMED: 10087678 (4) Sepsis ICD Codes: A41.9 - Sepsis, unspecified organism SNOMED: 85711614 (5) Diabetes mellitus (6) Anemia ICD Codes: D64.9 - Anemia SNOMED: 082501143 Qualifiers: Qualified Codes: N18.3 - Chronic kidney disease, stage 3 (moderate); D63.1 - Anemia in chronic kidney disease (7) Functional quadriplegia ICD Codes: R53.2 - Functional quadriplegia SNOMED: 088823825739532 Assessment/Plan urinary tract infection, possible sepsis, acute renal failure, chronic renal insufficiency, diabetes mellitus, out of control, anemia urinary outlet obstruction. Dementia functional Quadriplegia Plan: Antibiotics transfusion monitor renal parameters per orders Kidney SHAWN Per ID advise Subjective ROS Limited/Unobtainable: No Constitutional: Reports: malaise Allergies: Coded Allergies: No Known Allergies (Unverified , 06/10/17) Objective Last 24 Hour Vital Signs Date Time Temp Pulse Resp B/P (MAP) Pulse Ox O2 Delivery O2 Flow Rate FiO2 08/02/17 04:00 98.1 71 20 136/65 98 Room Air 08/02/17 04:00 74 08/02/17 00:00 98.2 78 20 146/71 98 Room Air 08/01/17 23:37 73 08/01/17 21:00 97.9 88 20 141/67 99 08/01/17 19:08 89 08/01/17 16:00 81 Intake and Output 08/01/17 08/02/17 19:00 07:00 Intake Total 50 ml 600 ml Output Total 200 ml 300 ml Balance -150 ml 300 ml Intake IV Total 50 ml 600 ml Output Urine Total 200 ml 300 ml # Bowel Movements 1 Laboratory Tests 08/02/17 06:30: White Blood Count 10.3, Red Blood Count 2.95L, Hemoglobin 7.0L, Hematocrit 22.0L , Mean Corpuscular Volume 75L, Mean Corpuscular Hemoglobin 23.8L, Mean Corpuscular Hemoglobin Concent 31.8L, Red Cell Distribution Width 12.8, Platelet Count 323, Mean Platelet Volume 6.8, Neutrophils (%) (Auto) , Lymphocytes (%) (Auto) , Monocytes (%) (Auto) , Eosinophils (%) (Auto) , Basophils (%) (Auto) , Differential Total Cells Counted 100, Neutrophils % ( Manual) 89H, Lymphocytes % (Manual) 8L, Monocytes % (Manual) 3, Eosinophils % ( Manual) 0, Basophils % (Manual) 0, Band Neutrophils 0, Platelet Estimate Adequate, Platelet Morphology Normal, Hypochromasia 1+, Microcytosis 1+, Sodium Level 138, Potassium Level 5.2H, Chloride Level 108H, Carbon Dioxide Level 20L, Anion Gap 10, Blood Urea Nitrogen 47H, Creatinine 1.7H, Estimat Glomerular Filtration Rate , Glucose Level 190#H, Calcium Level 8.0L, Phosphorus Level 3.8 , Magnesium Level 2.8H, Total Bilirubin 0.2, Aspartate Amino Transf (AST/SGOT) 27, Alanine Aminotransferase (ALT/SGPT) 42, Alkaline Phosphatase 81, C-Reactive Protein, Quantitative 36.6H, Pro-B-Type Natriuretic Peptide 1412H, Total Protein 5.9L, Albumin 1.7L, Globulin 4.2, Albumin/Globulin Ratio 0.4L Height (Feet): 5 Height (Inches): 5.00 Weight (Pounds): 180 General Appearance: no apparent distress Cardiovascular: regular rhythm Respiratory/Chest: lungs clear Abdomen: soft Extremities: other - PVD ADINA GUARDADO Aug 02, 2017 13:29
--- NOTE | 2017-08-02 16:19 | Infectious Diseases Prog Note ---
Assessment/Plan Problems: (1) UTI (urinary tract infection) Assessment & Plan: with H/O MDR E.coli , await urine culture , continue cefepime empirically (2) Sepsis Assessment & Plan: unclear source, could be due to UTI, await blood culture , continue cefepime empirically (3) Renal failure Assessment & Plan: suspect due to the above, continue hydration, renal is following , avoid nephrotoxic meds (4) Diabetes mellitus Assessment & Plan: recommend tight glycemic control to keep blood glucose between 100-140 Subjective ROS Limited/Unobtainable: Yes Allergies: Coded Allergies: No Known Allergies (Unverified , 06/10/17) Subjective she was resting in bed, comfortable, a febrile, not in distress Objective Vital Signs Last 24 Hour Vital Signs Date Time Temp Pulse Resp B/P (MAP) Pulse Ox O2 Delivery O2 Flow Rate FiO2 08/02/17 12:00 101 08/02/17 08:00 87 08/02/17 04:00 98.1 71 20 136/65 98 Room Air 08/02/17 04:00 74 08/02/17 00:00 98.2 78 20 146/71 98 Room Air 08/01/17 23:37 73 08/01/17 21:00 97.9 88 20 141/67 99 08/01/17 19:08 89 Height (Feet): 5 Height (Inches): 5.00 Weight (Pounds): 180 General Appearance: WD/WN, no acute distress HEENT: normocephalic, atraumatic, anicteric, mucous membranes moist Respiratory/Chest: chest wall non-tender, lungs clear, no respiratory distress , no accessory muscle use Cardiovascular: normal peripheral pulses, normal rate, regular rhythm, no gallop/murmur, no JVD Abdomen: normal bowel sounds, soft, non tender, no organomegaly, non distended , no mass, no scars Genitourinary: normal external genitalia Extremities: no cyanosis, no clubbing Skin: no rash, no lesions, no ulcers Laboratory Tests Test 08/02/17 06:30 White Blood Count 10.3 K/UL (4.8-10.8) Red Blood Count 2.95 M/UL (4.20-5.40) L Hemoglobin 7.0 G/DL (12.0-16.0) L Hematocrit 22.0 % (37.0-47.0) L Mean Corpuscular Volume 75 FL (80-99) L Mean Corpuscular Hemoglobin 23.8 PG (27.0-31.0) L Mean Corpuscular Hemoglobin Concent 31.8 G/DL (32.0-36.0) L Red Cell Distribution Width 12.8 % (11.6-14.8) Platelet Count 323 K/UL (150-450) Mean Platelet Volume 6.8 FL (6.5-10.1) Neutrophils (%) (Auto) % (45.0-75.0) Lymphocytes (%) (Auto) % (20.0-45.0) Monocytes (%) (Auto) % (1.0-10.0) Eosinophils (%) (Auto) % (0.0-3.0) Basophils (%) (Auto) % (0.0-2.0) Differential Total Cells Counted 100 Neutrophils % (Manual) 89 % (45-75) H Lymphocytes % (Manual) 8 % (20-45) L Monocytes % (Manual) 3 % (1-10) Eosinophils % (Manual) 0 % (0-3) Basophils % (Manual) 0 % (0-2) Band Neutrophils 0 % (0-8) Platelet Estimate Adequate Platelet Morphology Normal Hypochromasia 1+ Microcytosis 1+ Sodium Level 138 MMOL/L (136-145) Potassium Level 5.2 MMOL/L (3.5-5.1) H Chloride Level 108 MMOL/L (98-107) H Carbon Dioxide Level 20 MMOL/L (21-32) L Anion Gap 10 mmol/L (5-15) Blood Urea Nitrogen 47 mg/dL (7-18) H Creatinine 1.7 MG/DL (0.55-1.30) H Estimat Glomerular Filtration Rate mL/min (>60) Glucose Level 190 MG/DL (74-106) #H Calcium Level 8.0 MG/DL (8.5-10.1) L Phosphorus Level 3.8 MG/DL (2.5-4.9) Magnesium Level 2.8 MG/DL (1.5-2.4) H Total Bilirubin 0.2 MG/DL (0.2-1.0) Aspartate Amino Transf (AST/SGOT) 27 U/L (15-37) Alanine Aminotransferase (ALT/SGPT) 42 U/L (12-78) Alkaline Phosphatase 81 U/L (46-116) C-Reactive Protein, Quantitative 36.6 mg/dL (0.00-0.90) H Pro-B-Type Natriuretic Peptide 1412 pg/mL (0-125) H Total Protein 5.9 G/DL (6.4-8.2) L Albumin 1.7 G/DL (3.4-5.0) L Globulin 4.2 g/dL Albumin/Globulin Ratio 0.4 (1.0-2.7) L Current Medications Medications (Trade) Dose Ordered Sig/Nancy Route PRN Reason Start Time Stop Time Status Last Admin Dose Admin Acetaminophen (Tylenol) 650 mg Q6H PRN ORAL FOR PAIN. NTE 3GM/24HRS. 08/01/17 00:15 08/31/17 00:14 Aspirin (Ecotrin) 81 mg DAILY ORAL 08/01/17 09:00 08/31/17 08:59 08/02/17 09:57 Cefepime HCl 1 gm/ Dextrose 55 ml @ 110 mls/hr DAILY IVPB 08/01/17 15:00 08/08/17 14:59 08/01/17 15:01 Dextrose (Dextrose 50%) STAT PRN IV Hypoglycemia 08/01/17 12:00 08/31/17 11:59 Docusate Sodium (Colace) 100 mg THREE TIMES A DAY ORAL 08/01/17 09:00 08/31/17 08:59 08/02/17 09:00 Epoetin Oziel (Procrit (for non ESRD use)) 10,000 units SAT-SAT-SAT SUBQ 08/02/17 21:00 09/01/17 20:59 Famotidine (Pepcid I.v.) 20 mg Q24H IVP 08/01/17 09:00 08/31/17 08:59 08/02/17 09:57 Heparin Sodium (Porcine) (Heparin 5000 units/ml) 5,000 units EVERY 12 HOURS SUBQ 08/01/17 09:00 08/31/17 08:59 08/02/17 10:01 Insulin Aspart (NovoLOG) Q6HR SUBQ 08/01/17 12:30 08/31/17 12:29 08/02/17 06:48 Sodium Chloride 1,000 ml @ 50 mls/hr Q20H IV 08/01/17 16:30 08/31/17 16:29 08/01/17 17:56 Abdiel Payan M.D. Aug 02, 2017 16:19
[2017-08-02 17:31] VITALS: BP 144/77
[2017-08-02 20:00] VITALS: BP 120/87
[2017-08-02] MEDS: Epogen (for non ESRD use) SUBQ SCH (22:13)
[2017-08-03] VITALS: BP 120/65
[2017-08-03] MEDS: NovoLOG Insulin Flexpen SUBQ SCH ×4 (00:11→17:44)
[2017-08-03 04:00] VITALS: BP 129/77
[2017-08-03] MEDS: Docusate 100mg cap ORAL SCH ×3 (08:33→17:39)
[2017-08-03] MEDS: Aspirin EC 81mg tab ORAL SCH (08:33)
[2017-08-03] MEDS: Cefepime HCl 1 GM in D5W 55 ML IVPB SCH (08:34)
[2017-08-03] MEDS: Heparin 5000 units/ml inj SUBQ SCH ×2 (08:35→20:52)
[2017-08-03 08:49] VITALS: BP 158/80
[2017-08-03 08:52] LABS: BASOPHILS % (AUTO) 0.6 % (0.0-2.0); HEMATOCRIT 31.6 % (37.0-47.0); HEMOGLOBIN 10.1 G/DL (12.0-16.0); LYMPHOCYTES % (AUTO) 10.1 % (20.0-45.0); MEAN CORPUSCULAR VOLUME 78 FL (80-99); MONOCYTES % (AUTO) 7.8 % (1.0-10.0); NEUTROPHILS % (AUTO) 80.5 % (45.0-75.0); PLATELET COUNT 342 K/UL (150-450); RED BLOOD COUNT 4.03 M/UL (4.20-5.40); RED CELL DISTRIBUTION WIDTH 13.7 % (11.6-14.8); WHITE BLOOD COUNT 11.3 K/UL (4.8-10.8)
[2017-08-03 09:05] LABS: ALANINE AMINOTRANSFERASE 33 U/L (12-78); ALBUMIN 1.8 G/DL (3.4-5.0); ALBUMIN/GLOBULIN RATIO 0.4 (1.0-2.7); ALKALINE PHOSPHATASE 86 U/L (46-116); ANION GAP 9 mmol/L (5-15); ASPARTATE AMINO TRANSFERASE 23 U/L (15-37); BILIRUBIN,TOTAL 0.4 MG/DL (0.2-1.0); BLOOD UREA NITROGEN 40 mg/dL (7-18); CALCIUM 8.4 MG/DL (8.5-10.1); CARBON DIOXIDE 20 MMOL/L (21-32); CHLORIDE 110 MMOL/L (98-107); CREATININE 1.6 MG/DL (0.55-1.30); PHOSPHORUS 3.2 MG/DL (2.5-4.9); POTASSIUM 4.5 MMOL/L (3.5-5.1); SODIUM 139 MMOL/L (136-145)
[2017-08-03 12:05] VITALS: BP 146/55
--- NOTE | 2017-08-03 12:30 | General Progress Note ---
Assessment/Plan Problem List: (1) Renal failure (ARF), acute on chronic ICD Codes: N17.9 - Acute kidney failure, unspecified; N18.9 - Chronic kidney disease, unspecified SNOMED: 809679297 (2) Hyperkalemia ICD Codes: E87.5 - Hyperkalemia SNOMED: 31760854 (3) UTI (urinary tract infection) ICD Codes: N39.0 - Urinary tract infection, site not specified SNOMED: 02137371 (4) Sepsis ICD Codes: A41.9 - Sepsis, unspecified organism SNOMED: 41387981 (5) Diabetes mellitus (6) Anemia ICD Codes: D64.9 - Anemia SNOMED: 689606649 Qualifiers: Qualified Codes: N18.3 - Chronic kidney disease, stage 3 (moderate); D63.1 - Anemia in chronic kidney disease (7) Functional quadriplegia ICD Codes: R53.2 - Functional quadriplegia SNOMED: 079517664540148 Status: stable Assessment/Plan urinary tract infection, possible sepsis, acute renal failure, chronic renal insufficiency, diabetes mellitus, out of control, anemia urinary outlet obstruction. Dementia functional Quadriplegia ERitalin for psychomotor retardation Plan: Antibiotics transfusion monitor renal parameters per orders Kidney SHAWN Per ID advise Subjective ROS Limited/Unobtainable: No Constitutional: Reports: malaise, other - appears stronger Allergies: Coded Allergies: No Known Allergies (Unverified , 06/10/17) Objective Last 24 Hour Vital Signs Date Time Temp Pulse Resp B/P (MAP) Pulse Ox O2 Delivery O2 Flow Rate FiO2 08/03/17 08:49 97.7 82 20 158/80 99 Room Air 08/03/17 07:41 85 08/03/17 04:00 82 08/03/17 04:00 97.9 77 16 129/77 Bi-pap 08/03/17 00:00 77 08/03/17 00:00 98.0 58 16 120/65 95 08/02/17 20:00 79 08/02/17 20:00 97.7 84 18 120/87 100 08/02/17 17:31 98.2 86 21 144/77 98 Room Air 08/02/17 16:00 79 Intake and Output 08/02/17 08/03/17 19:00 07:00 Intake Total 100 ml Output Total 400 ml Balance 100 ml -400 ml Intake Oral 100 ml Output Urine Total 400 ml Laboratory Tests 08/03/17 07:40: White Blood Count 11.3H, Red Blood Count 4.03L, Hemoglobin 10.1#L, Hematocrit 31.6#L, Mean Corpuscular Volume 78L, Mean Corpuscular Hemoglobin 25.1L, Mean Corpuscular Hemoglobin Concent 32.0, Red Cell Distribution Width 13.7, Platelet Count 342, Mean Platelet Volume 6.7, Neutrophils (%) (Auto) 80.5H, Lymphocytes ( %) (Auto) 10.1L, Monocytes (%) (Auto) 7.8, Eosinophils (%) (Auto) 1.0, Basophils (%) (Auto) 0.6, Sodium Level 139, Potassium Level 4.5, Chloride Level 110H, Carbon Dioxide Level 20L, Anion Gap 9, Blood Urea Nitrogen 40H, Creatinine 1.6H, Estimat Glomerular Filtration Rate , Glucose Level 190H, Calcium Level 8.4L, Phosphorus Level 3.2, Magnesium Level 2.4, Total Bilirubin 0.4, Aspartate Amino Transf (AST/SGOT) 23, Alanine Aminotransferase (ALT/SGPT) 33, Alkaline Phosphatase 86, C-Reactive Protein, Quantitative 26.5H, Total Protein 6.1L, Albumin 1.8L, Globulin 4.3, Albumin/Globulin Ratio 0.4L Height (Feet): 5 Height (Inches): 5.00 Weight (Pounds): 180 General Appearance: no apparent distress, lethargic Cardiovascular: regular rhythm Respiratory/Chest: decreased breath sounds Abdomen: soft Objective no other changes ADINA GUARDADO Aug 03, 2017 12:30
[2017-08-03 16:57] VITALS: BP 146/76
[2017-08-03 20:19] VITALS: BP 138/68
[2017-08-04 00:36] VITALS: BP 130/65
[2017-08-04] MEDS: NovoLOG Insulin Flexpen SUBQ SCH ×5 (00:48→23:59)
[2017-08-04 04:21] VITALS: BP 139/79
[2017-08-04 08:00] VITALS: BP 135/72
[2017-08-04] MEDS: Cefepime HCl 1 GM in D5W 55 ML IVPB SCH (08:41)
[2017-08-04] MEDS: Heparin 5000 units/ml inj SUBQ SCH ×2 (08:44→22:05)
[2017-08-04] MEDS: Aspirin EC 81mg tab ORAL SCH (09:00)
[2017-08-04] MEDS: Docusate 100mg cap ORAL SCH ×3 (09:00→17:27)
--- NOTE | 2017-08-04 09:54 | General Progress Note ---
Assessment/Plan Problem List: (1) Renal failure (ARF), acute on chronic ICD Codes: N17.9 - Acute kidney failure, unspecified; N18.9 - Chronic kidney disease, unspecified SNOMED: 193301932 (2) Hyperkalemia ICD Codes: E87.5 - Hyperkalemia SNOMED: 70865269 (3) UTI (urinary tract infection) ICD Codes: N39.0 - Urinary tract infection, site not specified SNOMED: 59654272 (4) Sepsis ICD Codes: A41.9 - Sepsis, unspecified organism SNOMED: 40357693 (5) Diabetes mellitus (6) Anemia ICD Codes: D64.9 - Anemia SNOMED: 101464629 Qualifiers: Qualified Codes: N18.3 - Chronic kidney disease, stage 3 (moderate); D63.1 - Anemia in chronic kidney disease (7) Functional quadriplegia ICD Codes: R53.2 - Functional quadriplegia SNOMED: 939081327372889 Status: unchanged Status Narrative not eating Assessment/Plan urinary tract infection, possible sepsis, acute renal failure, chronic renal insufficiency, diabetes mellitus, out of control, anemia urinary outlet obstruction. Dementia functional Quadriplegia Ritalin for psychomotor retardation FTT Plan: Antibiotics transfusion monitor renal parameters per orders Kidney SHAWN Per ID advise discuss PEG Subjective ROS Limited/Unobtainable: No Constitutional: Reports: malaise Allergies: Coded Allergies: No Known Allergies (Unverified , 06/10/17) Objective Last 24 Hour Vital Signs Date Time Temp Pulse Resp B/P (MAP) Pulse Ox O2 Delivery O2 Flow Rate FiO2 08/04/17 08:00 97.5 70 19 135/72 99 Room Air 08/04/17 04:21 97.7 73 20 139/79 99 Room Air 08/04/17 04:00 78 08/04/17 00:36 97.3 73 20 130/65 Room Air 08/04/17 00:00 84 08/03/17 20:19 98.1 80 20 138/68 91 Room Air 08/03/17 20:00 76 08/03/17 19:46 77 08/03/17 16:57 97.9 71 20 146/76 99 Room Air 08/03/17 16:25 69 08/03/17 12:05 98.2 83 20 146/55 100 Room Air 08/03/17 11:54 77 Intake and Output 08/03/17 08/04/17 19:00 07:00 Intake Total 605 ml 600 ml Output Total 400 ml 450 ml Balance 205 ml 150 ml IV Total 605 ml 600 ml Output Urine Total 400 ml 450 ml Height (Feet): 5 Height (Inches): 5.00 Weight (Pounds): 180 General Appearance: no apparent distress, lethargic, other - arousable Neck: other - rigid all direction Respiratory/Chest: other - poor inspiratory effort Abdomen: soft, other - poor po intake Neurologic: other - arousable Objective no other changes ADINA GUARDADO Aug 04, 2017 09:54
--- NOTE | 2017-08-04 11:10 | Infectious Diseases Prog Note ---
Assessment/Plan Problems: (1) UTI (urinary tract infection) Assessment & Plan: with H/O MDR E.coli , urine culture grew less than 10 000 strep spp, most likely contaminant , will stop cefepime empirically (2) Sepsis Assessment & Plan: ruled out with negative blood culture, will stop cefepime empirically (3) Renal failure Assessment & Plan: suspect due to the above, continue hydration, renal is following , avoid nephrotoxic meds (4) Diabetes mellitus Assessment & Plan: recommend tight glycemic control to keep blood glucose between 100-140 Subjective ROS Limited/Unobtainable: Yes Allergies: Coded Allergies: No Known Allergies (Unverified , 06/10/17) Subjective she was comfortable, lying in bed, alert, a febrile, not in distress Objective Vital Signs Last 24 Hour Vital Signs Date Time Temp Pulse Resp B/P (MAP) Pulse Ox O2 Delivery O2 Flow Rate FiO2 08/04/17 08:03 66 08/04/17 08:00 97.5 70 19 135/72 99 Room Air 08/04/17 04:21 97.7 73 20 139/79 99 Room Air 08/04/17 04:00 78 08/04/17 00:36 97.3 73 20 130/65 Room Air 08/04/17 00:00 84 08/03/17 20:19 98.1 80 20 138/68 91 Room Air 08/03/17 20:00 76 08/03/17 19:46 77 08/03/17 16:57 97.9 71 20 146/76 99 Room Air 08/03/17 16:25 69 08/03/17 12:05 98.2 83 20 146/55 100 Room Air 08/03/17 11:54 77 Height (Feet): 5 Height (Inches): 5.00 Weight (Pounds): 180 General Appearance: WD/WN, no acute distress HEENT: normocephalic, atraumatic, anicteric, mucous membranes moist Respiratory/Chest: chest wall non-tender, lungs clear, normal breath sounds, no respiratory distress, no accessory muscle use Cardiovascular: normal peripheral pulses, normal rate, regular rhythm, no gallop/murmur, no JVD Abdomen: normal bowel sounds, soft, non tender, no organomegaly, non distended , no mass, no scars Extremities: no cyanosis, no clubbing Skin: no rash, no lesions, no ulcers Neurologic/Psychiatric: alert Microbiology Date/Time Source Procedure Growth Status 08/01/17 19:00 Blood Blood Culture - Preliminary NO GROWTH AFTER 48 HOURS Resulted 08/01/17 18:50 Blood Blood Culture - Preliminary NO GROWTH AFTER 48 HOURS Resulted 08/01/17 19:20 Indwelling Cath Urine Culture - Final Strep Species, Gamma-Hemolytic Complete Current Medications Medications (Trade) Dose Ordered Sig/Anncy Route PRN Reason Start Time Stop Time Status Last Admin Dose Admin Acetaminophen (Tylenol) 650 mg Q6H PRN ORAL FOR PAIN. NTE 3GM/24HRS. 08/01/17 00:15 08/31/17 00:14 Aspirin (Ecotrin) 81 mg DAILY ORAL 08/01/17 09:00 08/31/17 08:59 08/03/17 08:33 Cefepime HCl 1 gm/ Dextrose 55 ml @ 110 mls/hr DAILY IVPB 08/01/17 15:00 08/08/17 14:59 08/04/17 08:41 Dextrose (Dextrose 50%) STAT PRN IV Hypoglycemia 08/01/17 12:00 08/31/17 11:59 Docusate Sodium (Colace) 100 mg THREE TIMES A DAY ORAL 08/01/17 09:00 08/31/17 08:59 08/03/17 17:39 Epoetin Oziel (Procrit (for non ESRD use)) 10,000 units SAT-SAT-SAT SUBQ 08/02/17 21:00 09/01/17 20:59 08/02/17 22:13 Famotidine (Pepcid I.v.) 20 mg Q24H IVP 08/01/17 09:00 08/31/17 08:59 08/04/17 08:42 Heparin Sodium (Porcine) (Heparin 5000 units/ml) 5,000 units EVERY 12 HOURS SUBQ 08/01/17 09:00 08/31/17 08:59 08/04/17 08:44 Insulin Aspart (NovoLOG) Q6HR SUBQ 08/01/17 12:30 08/31/17 12:29 08/04/17 06:15 Methylphenidate HCl (Ritalin) 5 mg DAILY ORAL 08/05/17 09:00 08/12/17 08:59 Sodium Chloride 1,000 ml @ 50 mls/hr Q20H IV 08/01/17 16:30 08/31/17 16:29 08/04/17 04:30 Abdiel Payan M.D. Aug 04, 2017 11:10
[2017-08-04 12:00] VITALS: BP 150/76
--- NOTE | 2017-08-04 13:26 | Infectious Diseases Prog Note ---
Assessment/Plan Problems: (1) UTI (urinary tract infection) Assessment & Plan: with H/O MDR E.coli , urine culture grew less than 10 000 strep spp, most likely contaminant , will stop cefepime empirically (2) Sepsis Assessment & Plan: ruled out with negative blood culture, will stop cefepime empirically (3) Renal failure Assessment & Plan: suspect due to the above, continue hydration, renal is following , avoid nephrotoxic meds (4) Diabetes mellitus Assessment & Plan: recommend tight glycemic control to keep blood glucose between 100-140 Assessment/Plan this is late entry note for yesterday visit, patient was seen and examined yesterday at 10;30 am Subjective ROS Limited/Unobtainable: Yes Allergies: Coded Allergies: No Known Allergies (Unverified , 06/10/17) Subjective she was comfortable, lying in bed, alert, a febrile, not in distress,. more awake today and interactive Objective Vital Signs Last 24 Hour Vital Signs Date Time Temp Pulse Resp B/P (MAP) Pulse Ox O2 Delivery O2 Flow Rate FiO2 08/04/17 12:00 97.8 82 20 150/76 98 Room Air 08/04/17 11:35 84 08/04/17 08:03 66 08/04/17 08:00 97.5 70 19 135/72 99 Room Air 08/04/17 04:21 97.7 73 20 139/79 99 Room Air 08/04/17 04:00 78 08/04/17 00:36 97.3 73 20 130/65 Room Air 08/04/17 00:00 84 08/03/17 20:19 98.1 80 20 138/68 91 Room Air 08/03/17 20:00 76 08/03/17 19:46 77 08/03/17 16:57 97.9 71 20 146/76 99 Room Air 08/03/17 16:25 69 Height (Feet): 5 Height (Inches): 5.00 Weight (Pounds): 180 General Appearance: WD/WN, no acute distress HEENT: normocephalic, atraumatic, anicteric, mucous membranes moist, PERRL Respiratory/Chest: chest wall non-tender, lungs clear, normal breath sounds, no respiratory distress, no accessory muscle use Cardiovascular: normal peripheral pulses, normal rate, regular rhythm, no gallop/murmur, no JVD Abdomen: normal bowel sounds, soft, non tender, no organomegaly, non distended , no mass, no scars Extremities: no cyanosis, no clubbing Skin: no rash, no lesions, no ulcers Neurologic/Psychiatric: alert, responsive Microbiology Date/Time Source Procedure Growth Status 08/01/17 19:00 Blood Blood Culture - Preliminary NO GROWTH AFTER 48 HOURS Resulted 08/01/17 18:50 Blood Blood Culture - Preliminary NO GROWTH AFTER 48 HOURS Resulted 08/01/17 19:20 Indwelling Cath Urine Culture - Final Strep Species, Gamma-Hemolytic Complete Current Medications Medications (Trade) Dose Ordered Sig/Nancy Route PRN Reason Start Time Stop Time Status Last Admin Dose Admin Acetaminophen (Tylenol) 650 mg Q6H PRN ORAL FOR PAIN. NTE 3GM/24HRS. 08/01/17 00:15 08/31/17 00:14 Aspirin (Ecotrin) 81 mg DAILY ORAL 08/01/17 09:00 08/31/17 08:59 08/03/17 08:33 Dextrose (Dextrose 50%) STAT PRN IV Hypoglycemia 08/01/17 12:00 08/31/17 11:59 Docusate Sodium (Colace) 100 mg THREE TIMES A DAY ORAL 08/01/17 09:00 08/31/17 08:59 08/03/17 17:39 Epoetin Oziel (Procrit (for non ESRD use)) 10,000 units SAT-SAT-SAT SUBQ 08/02/17 21:00 09/01/17 20:59 08/02/17 22:13 Famotidine (Pepcid I.v.) 20 mg Q24H IVP 08/01/17 09:00 08/31/17 08:59 08/04/17 08:42 Heparin Sodium (Porcine) (Heparin 5000 units/ml) 5,000 units EVERY 12 HOURS SUBQ 08/01/17 09:00 08/31/17 08:59 08/04/17 08:44 Insulin Aspart (NovoLOG) Q6HR SUBQ 08/01/17 12:30 08/31/17 12:29 08/04/17 12:39 Methylphenidate HCl (Ritalin) 5 mg DAILY ORAL 08/05/17 09:00 08/12/17 08:59 Sodium Chloride 1,000 ml @ 50 mls/hr Q20H IV 08/01/17 16:30 08/31/17 16:29 08/04/17 04:30 Abdiel Payan M.D. Aug 04, 2017 13:26
[2017-08-04 16:00] VITALS: BP 143/73
[2017-08-04 20:25] VITALS: BP 126/62
[2017-08-05] VITALS: BP 148/67
[2017-08-05 04:18] VITALS: BP 150/91
[2017-08-05] MEDS: NovoLOG Insulin Flexpen SUBQ SCH ×3 (06:15→17:56)
[2017-08-05 07:38] LABS: BASOPHILS % (AUTO) 0.6 % (0.0-2.0); EOSINOPHILS % (AUTO) 2.3 % (0.0-3.0); HEMATOCRIT 30.7 % (37.0-47.0); HEMOGLOBIN 9.6 G/DL (12.0-16.0); LYMPHOCYTES % (AUTO) 13.7 % (20.0-45.0); MEAN CORPUSCULAR VOLUME 80 FL (80-99); MONOCYTES % (AUTO) 8.7 % (1.0-10.0); NEUTROPHILS % (AUTO) 74.7 % (45.0-75.0); PLATELET COUNT 372 K/UL (150-450); RED BLOOD COUNT 3.83 M/UL (4.20-5.40); RED CELL DISTRIBUTION WIDTH 14.9 % (11.6-14.8); WHITE BLOOD COUNT 9.3 K/UL (4.8-10.8)
[2017-08-05 07:45] LABS: ALANINE AMINOTRANSFERASE 35 U/L (12-78); ALBUMIN 1.7 G/DL (3.4-5.0); ALBUMIN/GLOBULIN RATIO 0.4 (1.0-2.7); ALKALINE PHOSPHATASE 96 U/L (46-116); ANION GAP 12 mmol/L (5-15); ASPARTATE AMINO TRANSFERASE 24 U/L (15-37); BILIRUBIN,TOTAL 0.3 MG/DL (0.2-1.0); BLOOD UREA NITROGEN 29 mg/dL (7-18); CALCIUM 8.6 MG/DL (8.5-10.1); CARBON DIOXIDE 19 MMOL/L (21-32); CHLORIDE 114 MMOL/L (98-107); CREATININE 1.4 MG/DL (0.55-1.30); PHOSPHORUS 2.5 MG/DL (2.5-4.9); POTASSIUM 4.2 MMOL/L (3.5-5.1); SODIUM 144 MMOL/L (136-145)
[2017-08-05 08:00] VITALS: BP 147/80
[2017-08-05] MEDS: Heparin 5000 units/ml inj SUBQ SCH ×2 (09:00→21:00)
[2017-08-05] MEDS: Docusate 100mg cap ORAL SCH ×3 (09:32→17:56)
[2017-08-05] MEDS: Aspirin EC 81mg tab ORAL SCH (09:32)
--- NOTE | 2017-08-05 10:19 | General Progress Note ---
Assessment/Plan Problem List: (1) Renal failure (ARF), acute on chronic ICD Codes: N17.9 - Acute kidney failure, unspecified; N18.9 - Chronic kidney disease, unspecified SNOMED: 159416849 (2) Hyperkalemia ICD Codes: E87.5 - Hyperkalemia SNOMED: 04411652 (3) UTI (urinary tract infection) ICD Codes: N39.0 - Urinary tract infection, site not specified SNOMED: 73916133 (4) Sepsis ICD Codes: A41.9 - Sepsis, unspecified organism SNOMED: 12167922 (5) Diabetes mellitus (6) Anemia ICD Codes: D64.9 - Anemia SNOMED: 506507182 Qualifiers: Qualified Codes: N18.3 - Chronic kidney disease, stage 3 (moderate); D63.1 - Anemia in chronic kidney disease (7) Functional quadriplegia ICD Codes: R53.2 - Functional quadriplegia SNOMED: 569523981465764 Status Narrative poor po intake Assessment/Plan urinary tract infection, possible sepsis, acute renal failure, chronic renal insufficiency, diabetes mellitus, out of control, anemia urinary outlet obstruction. Dementia functional Quadriplegia Ritalin for psychomotor retardation FTT Plan: PEG , discussed with Family- agreeable- Dr Monae notified Antibiotics transfusion monitor renal parameters per orders Kidney [facility] Per ID advise discuss PEG Subjective ROS Limited/Unobtainable: No Constitutional: Reports: malaise Allergies: Coded Allergies: No Known Allergies (Unverified , 06/10/17) Objective Last 24 Hour Vital Signs Date Time Temp Pulse Resp B/P (MAP) Pulse Ox O2 Delivery O2 Flow Rate FiO2 08/05/17 04:18 98.4 80 20 150/91 100 Room Air 08/05/17 04:00 76 08/05/17 00:00 98.1 73 20 148/67 99 08/05/17 00:00 72 08/04/17 20:25 98.2 73 20 126/62 97 Room Air 08/04/17 20:00 81 08/04/17 17:06 73 08/04/17 16:00 97.9 75 20 143/73 95 Room Air 08/04/17 12:00 97.8 82 20 150/76 98 Room Air 08/04/17 11:35 84 Intake and Output 08/04/17 08/05/17 19:00 07:00 Intake Total 915 ml 200 ml Output Total 550 ml 1000 ml Balance 365 ml -800 ml Intake Oral 260 ml IV Total 655 ml 200 ml Output Urine Total 550 ml 1000 ml Laboratory Tests 08/05/17 05:45: White Blood Count 9.3, Red Blood Count 3.83L, Hemoglobin 9.6L, Hematocrit 30.7L , Mean Corpuscular Volume 80, Mean Corpuscular Hemoglobin 25.2L, Mean Corpuscular Hemoglobin Concent 31.4L, Red Cell Distribution Width 14.9H, Platelet Count 372, Mean Platelet Volume 6.4L, Neutrophils (%) (Auto) 74.7, Lymphocytes (%) (Auto) 13.7L, Monocytes (%) (Auto) 8.7, Eosinophils (%) (Auto) 2.3, Basophils (%) (Auto) 0.6, Prothrombin Time 10.0, Prothromb Time International Ratio 1.0, Activated Partial Thromboplast Time 28, Sodium Level 144, Potassium Level 4.2, Chloride Level 114H, Carbon Dioxide Level 19L, Anion Gap 12, Blood Urea Nitrogen 29H, Creatinine 1.4H, Estimat Glomerular Filtration Rate , Glucose Level 189H, Calcium Level 8.6, Phosphorus Level 2.5, Magnesium Level 2.0, Total Bilirubin 0.3, Aspartate Amino Transf (AST/SGOT) 24, Alanine Aminotransferase (ALT/SGPT) 35, Alkaline Phosphatase 96, Total Protein 6.0L, Albumin 1.7L, Globulin 4.3, Albumin/Globulin Ratio 0.4L Height (Feet): 5 Height (Inches): 5.00 Weight (Pounds): 180 General Appearance: no apparent distress Cardiovascular: normal rate Respiratory/Chest: lungs clear Abdomen: soft Objective no other changes ADINA GUARDADO Aug 05, 2017 10:19
[2017-08-05 12:00] VITALS: BP 147/71
--- NOTE | 2017-08-05 14:11 | Infectious Diseases Prog Note ---
Assessment/Plan Problems: (1) UTI (urinary tract infection) Assessment & Plan: with H/O MDR E.coli , urine culture grew less than 10 000 strep spp, most likely contaminant , off cefepime empirically (2) Sepsis Assessment & Plan: ruled out with negative blood culture, off cefepime empirically (3) Renal failure Assessment & Plan: suspect due to the above, continue hydration, renal is following , avoid nephrotoxic meds (4) Diabetes mellitus Assessment & Plan: recommend tight glycemic control to keep blood glucose between 100-140 Subjective ROS Limited/Unobtainable: Yes Allergies: Coded Allergies: No Known Allergies (Unverified , 06/10/17) Subjective she was comfortable, lying in bed, alert, a febrile, not in distress,. more awake today and interactive Objective Vital Signs Last 24 Hour Vital Signs Date Time Temp Pulse Resp B/P (MAP) Pulse Ox O2 Delivery O2 Flow Rate FiO2 08/05/17 12:00 97.0 71 20 147/71 96 Room Air 08/05/17 08:00 98.1 80 18 147/80 98 Room Air 08/05/17 04:18 98.4 80 20 150/91 100 Room Air 08/05/17 04:00 76 08/05/17 00:00 98.1 73 20 148/67 99 08/05/17 00:00 72 08/04/17 20:25 98.2 73 20 126/62 97 Room Air 08/04/17 20:00 81 08/04/17 17:06 73 08/04/17 16:00 97.9 75 20 143/73 95 Room Air Height (Feet): 5 Height (Inches): 5.00 Weight (Pounds): 180 General Appearance: WD/WN, no acute distress, cachetic HEENT: normocephalic, atraumatic, anicteric, mucous membranes moist, PERRL, supple, no JVD Respiratory/Chest: chest wall non-tender, normal breath sounds, no respiratory distress, no accessory muscle use, decreased breath sounds Cardiovascular: normal peripheral pulses, normal rate, regular rhythm, no gallop/murmur, no JVD Abdomen: normal bowel sounds, soft, non tender, no organomegaly, non distended , no mass, no scars Extremities: no cyanosis, no clubbing Skin: no rash, no lesions Neurologic/Psychiatric: alert, responsive Laboratory Tests Test 08/05/17 05:45 White Blood Count 9.3 K/UL (4.8-10.8) Red Blood Count 3.83 M/UL (4.20-5.40) L Hemoglobin 9.6 G/DL (12.0-16.0) L Hematocrit 30.7 % (37.0-47.0) L Mean Corpuscular Volume 80 FL (80-99) Mean Corpuscular Hemoglobin 25.2 PG (27.0-31.0) L Mean Corpuscular Hemoglobin Concent 31.4 G/DL (32.0-36.0) L Red Cell Distribution Width 14.9 % (11.6-14.8) H Platelet Count 372 K/UL (150-450) Mean Platelet Volume 6.4 FL (6.5-10.1) L Neutrophils (%) (Auto) 74.7 % (45.0-75.0) Lymphocytes (%) (Auto) 13.7 % (20.0-45.0) L Monocytes (%) (Auto) 8.7 % (1.0-10.0) Eosinophils (%) (Auto) 2.3 % (0.0-3.0) Basophils (%) (Auto) 0.6 % (0.0-2.0) Prothrombin Time 10.0 SEC (9.30-11.50) Prothromb Time International Ratio 1.0 (0.9-1.1) Activated Partial Thromboplast Time 28 SEC (23-33) Sodium Level 144 MMOL/L (136-145) Potassium Level 4.2 MMOL/L (3.5-5.1) Chloride Level 114 MMOL/L (98-107) H Carbon Dioxide Level 19 MMOL/L (21-32) L Anion Gap 12 mmol/L (5-15) Blood Urea Nitrogen 29 mg/dL (7-18) H Creatinine 1.4 MG/DL (0.55-1.30) H Estimat Glomerular Filtration Rate mL/min (>60) Glucose Level 189 MG/DL (74-106) H Calcium Level 8.6 MG/DL (8.5-10.1) Phosphorus Level 2.5 MG/DL (2.5-4.9) Magnesium Level 2.0 MG/DL (1.8-2.4) Total Bilirubin 0.3 MG/DL (0.2-1.0) Aspartate Amino Transf (AST/SGOT) 24 U/L (15-37) Alanine Aminotransferase (ALT/SGPT) 35 U/L (12-78) Alkaline Phosphatase 96 U/L (46-116) Total Protein 6.0 G/DL (6.4-8.2) L Albumin 1.7 G/DL (3.4-5.0) L Globulin 4.3 g/dL Albumin/Globulin Ratio 0.4 (1.0-2.7) L Current Medications Medications (Trade) Dose Ordered Sig/Nancy Route PRN Reason Start Time Stop Time Status Last Admin Dose Admin Acetaminophen (Tylenol) 650 mg Q6H PRN ORAL FOR PAIN. NTE 3GM/24HRS. 08/01/17 00:15 08/31/17 00:14 Aspirin (Ecotrin) 81 mg DAILY ORAL 08/01/17 09:00 08/31/17 08:59 08/05/17 09:32 Dextrose (Dextrose 50%) STAT PRN IV Hypoglycemia 08/01/17 12:00 08/31/17 11:59 Docusate Sodium (Colace) 100 mg THREE TIMES A DAY ORAL 08/01/17 09:00 08/31/17 08:59 08/05/17 09:32 Epoetin Oziel (Procrit (for non ESRD use)) 10,000 units SAT-SAT-SAT SUBQ 08/02/17 21:00 09/01/17 20:59 08/02/17 22:13 Famotidine (Pepcid I.v.) 20 mg Q24H IVP 08/01/17 09:00 08/31/17 08:59 08/05/17 09:32 Heparin Sodium (Porcine) (Heparin 5000 units/ml) 5,000 units EVERY 12 HOURS SUBQ 08/01/17 09:00 08/31/17 08:59 08/04/17 22:05 Insulin Aspart (NovoLOG) Q6HR SUBQ 08/01/17 12:30 08/31/17 12:29 08/05/17 06:15 Methylphenidate HCl (Ritalin) 5 mg DAILY ORAL 08/05/17 09:00 08/12/17 08:59 08/05/17 09:32 Sodium Chloride 1,000 ml @ 50 mls/hr Q20H IV 08/01/17 16:30 08/31/17 16:29 08/05/17 00:50 Abdiel Payan M.D. Aug 05, 2017 14:11
[2017-08-05 16:00] VITALS: BP 147/80
--- NOTE | 2017-08-05 16:22 | GI Initial Consult Note ---
Foreman,Koki Anthony N.P. 08/05/17 1622: History of Present Illness General Date patient seen: Aug 05, 2017 Time patient seen: 16:15 Reason for Hospitalization: Female Urogenital Problems Referring physician: ADINA ORTIZ Reason for Consultation: PEG CONSULTATION Present Illness HPI 77-year-old female, coming from [facility], hypertension, diabetes, dysphasia , UTI, transferred to emergency room for low urine output. Only 100 mL of urine. Patient currently awake, oriented x1, not giving much history. GI consulted for PEG evaluation. HPI noted above. ROS limited, NAD with no active s/sx of N/V/D. Family has spoken to Dr. Ortiz and has agreed for GT placement. In addition, patient presents with microcytic hypochromic anemia. Unknown history of endoscopies or colonoscopies. Home Meds Reported Medications Metoclopramide Hcl* (REGLAN*) 5 Mg Tablet, 5 MG ORAL AC for Nausea & Vomiting 07/26/17 Pantoprazole* (PROTONIX*) 40 Mg Tablet., 40 MG ORAL AC for BREAKFAST AND DINNER 07/26/17 Multivitamin With Minerals (MULTIVITAMINS WITH MINERALS*) 1 Each Tablet, 1 TAB ORAL DAILY 07/26/17 Megestrol Acetate (MEGESTROL ACETATE) 400 Mg/10 Ml Oral.susp, 400 MG PO BID for END ON 08/07/17 07/26/17 Hydralazine Hcl* (HYDRALAZINE HCL*) 50 Mg Tablet, 50 MG ORAL EVERY 8 HOURS for HOLD IF SBP < 110 07/26/17 Glipizide* (GLIPIZIDE*) 5 Mg Tablet, 5 MG ORAL BIDAC for BREAKFAST AND LUNCH 07/26/17 Donepezil Hcl* (DONEPEZIL HCL*) 5 Mg Tablet, 5 MG ORAL HS 07/26/17 Docusate Sodium* (DOCUSATE SODIUM*) 100 Mg Capsule, 100 MG ORAL THREE TIMES A DAY for HOLD FOR LBM 07/26/17 Cholecalciferol (Vitamin D3)* (VITAMIN D*) 1,000 Unit Tablet, 1000 UNIT ORAL DAILY 07/26/17 Aspirin Ec* (ASPIRIN EC*) 81 Mg Tablet., 81 MG ORAL DAILY 07/26/17 Acetaminophen* (ACETAMINOPHEN 325MG TABLET*) 325 Mg Tablet, 650 MG ORAL Q6H Y for TEMP>100F. NTE 3GM/24HRS. 07/26/17 Acetaminophen* (ACETAMINOPHEN 325MG TABLET*) 325 Mg Tablet, 650 MG ORAL Q6H Y for FOR PAIN. NTE 3GM/24HRS. 07/26/17 Med list reviewed/reconciled: Yes Allergies: Coded Allergies: No Known Allergies (Unverified , 06/10/17) Patient History Limited by: medical condition History Provided By: Medical Record PMH Narrative Past Medical History: see triage record Past Surgical History: none Pertinent Family History: none Reviewed Nursing Documentation: PMH: Agreed, PSxH: Agreed Nursing Documentation-PMH Hx Cardiac Problems: Yes - PERIPHERAL VASCULAR DISEASE. ANEMIA Hx Hypertension: Yes Hx Diabetes: Yes Hx Cancer: No Hx Gastrointestinal Problems: Yes - GERD Hx Neurological Problems: Yes - DEMENTIA Hx Dementia: Yes Hx Weakness: Yes Review of Systems All Other Systems: limited Physical Exam Vital Signs Date Time Temp Pulse Resp B/P (MAP) Pulse Ox O2 Delivery O2 Flow Rate FiO2 08/01/17 07:06 98.0 80 19 110/77 96 Room Air Sp02 EP Interpretation: reviewed, normal Labs Laboratory Tests Test 08/05/17 05:45 White Blood Count 9.3 K/UL (4.8-10.8) Red Blood Count 3.83 M/UL (4.20-5.40) L Hemoglobin 9.6 G/DL (12.0-16.0) L Hematocrit 30.7 % (37.0-47.0) L Mean Corpuscular Volume 80 FL (80-99) Mean Corpuscular Hemoglobin 25.2 PG (27.0-31.0) L Mean Corpuscular Hemoglobin Concent 31.4 G/DL (32.0-36.0) L Red Cell Distribution Width 14.9 % (11.6-14.8) H Platelet Count 372 K/UL (150-450) Mean Platelet Volume 6.4 FL (6.5-10.1) L Neutrophils (%) (Auto) 74.7 % (45.0-75.0) Lymphocytes (%) (Auto) 13.7 % (20.0-45.0) L Monocytes (%) (Auto) 8.7 % (1.0-10.0) Eosinophils (%) (Auto) 2.3 % (0.0-3.0) Basophils (%) (Auto) 0.6 % (0.0-2.0) Prothrombin Time 10.0 SEC (9.30-11.50) Prothromb Time International Ratio 1.0 (0.9-1.1) Activated Partial Thromboplast Time 28 SEC (23-33) Sodium Level 144 MMOL/L (136-145) Potassium Level 4.2 MMOL/L (3.5-5.1) Chloride Level 114 MMOL/L (98-107) H Carbon Dioxide Level 19 MMOL/L (21-32) L Anion Gap 12 mmol/L (5-15) Blood Urea Nitrogen 29 mg/dL (7-18) H Creatinine 1.4 MG/DL (0.55-1.30) H Estimat Glomerular Filtration Rate mL/min (>60) Glucose Level 189 MG/DL (74-106) H Calcium Level 8.6 MG/DL (8.5-10.1) Phosphorus Level 2.5 MG/DL (2.5-4.9) Magnesium Level 2.0 MG/DL (1.8-2.4) Total Bilirubin 0.3 MG/DL (0.2-1.0) Aspartate Amino Transf (AST/SGOT) 24 U/L (15-37) Alanine Aminotransferase (ALT/SGPT) 35 U/L (12-78) Alkaline Phosphatase 96 U/L (46-116) Total Protein 6.0 G/DL (6.4-8.2) L Albumin 1.7 G/DL (3.4-5.0) L Globulin 4.3 g/dL Albumin/Globulin Ratio 0.4 (1.0-2.7) L General Appearance: no apparent distress, alert Head: normocephalic EENT: normal ENT inspection Neck: supple Respiratory: no respiratory distress Cardiovascular: normal rate Gastrointestinal: soft Rectal: deferred Neurologic: alert, responsive Skin: normal inspection, normal color, no rash Lymphatic: normal inspection, no adenopathy Current Medications Current Medications Medications (Trade) Dose Ordered Sig/Nancy Route PRN Reason Start Time Stop Time Status Last Admin Dose Admin Acetaminophen (Tylenol) 650 mg Q6H PRN ORAL FOR PAIN. NTE 3GM/24HRS. 08/01/17 00:15 08/31/17 00:14 Aspirin (Ecotrin) 81 mg DAILY ORAL 08/01/17 09:00 08/31/17 08:59 08/05/17 09:32 Cefoxitin Sodium 1 gm/Dextrose 55 ml @ 110 mls/hr ONCE ONCE IV 08/06/17 08:00 08/06/17 08:29 UNV Dextrose (Dextrose 50%) STAT PRN IV Hypoglycemia 08/01/17 12:00 08/31/17 11:59 Docusate Sodium (Colace) 100 mg THREE TIMES A DAY ORAL 08/01/17 09:00 08/31/17 08:59 08/05/17 09:32 Epoetin Oziel (Procrit (for non ESRD use)) 10,000 units SAT-SAT-SAT SUBQ 08/02/17 21:00 09/01/17 20:59 08/02/17 22:13 Famotidine (Pepcid I.v.) 20 mg Q24H IVP 08/01/17 09:00 08/31/17 08:59 08/05/17 09:32 Heparin Sodium (Porcine) (Heparin 5000 units/ml) 5,000 units EVERY 12 HOURS SUBQ 08/01/17 09:00 08/31/17 08:59 08/04/17 22:05 Insulin Aspart (NovoLOG) Q6HR SUBQ 08/01/17 12:30 08/31/17 12:29 08/05/17 06:15 Methylphenidate HCl (Ritalin) 5 mg DAILY ORAL 08/05/17 09:00 08/12/17 08:59 08/05/17 09:32 Sodium Chloride 1,000 ml @ 50 mls/hr Q20H IV 08/01/17 16:30 08/31/17 16:29 08/05/17 00:50 GI: Plan Problems: (1) Encounter for PEG (percutaneous endoscopic gastrostomy) (2) Dysphagia (3) Anemia (4) Dementia (5) Functional quadriplegia Plan PEG scheduled for tomorrow. - NPO @ Mn. - hold all blood thinners - dose cefoxitin IV prior to procedure anemia work up reviewed >> iron deficient, venofer prn transfusions ppi electrolyte correction GTFs per RD fu labs Discussed with Dr. Fried. Thank you for this patient referral, we will follow. NICHOLE FRIED 08/06/17 1151: History of Present Illness General Reason for Hospitalization: Female Urogenital Problems Present Illness Home Meds Reported Medications Metoclopramide Hcl* (REGLAN*) 5 Mg Tablet, 5 MG ORAL AC for Nausea & Vomiting 07/26/17 Pantoprazole* (PROTONIX*) 40 Mg Tablet.dr, 40 MG ORAL AC for BREAKFAST AND DINNER 07/26/17 Multivitamin With Minerals (MULTIVITAMINS WITH MINERALS*) 1 Each Tablet, 1 TAB ORAL DAILY 07/26/17 Megestrol Acetate (MEGESTROL ACETATE) 400 Mg/10 Ml Oral.susp, 400 MG PO BID for END ON 08/07/17 07/26/17 Hydralazine Hcl* (HYDRALAZINE HCL*) 50 Mg Tablet, 50 MG ORAL EVERY 8 HOURS for HOLD IF SBP < 110 07/26/17 Glipizide* (GLIPIZIDE*) 5 Mg Tablet, 5 MG ORAL BIDAC for BREAKFAST AND LUNCH 07/26/17 Donepezil Hcl* (DONEPEZIL HCL*) 5 Mg Tablet, 5 MG ORAL HS 07/26/17 Docusate Sodium* (DOCUSATE SODIUM*) 100 Mg Capsule, 100 MG ORAL THREE TIMES A DAY for HOLD FOR LBM 07/26/17 Cholecalciferol (Vitamin D3)* (VITAMIN D*) 1,000 Unit Tablet, 1000 UNIT ORAL DAILY 07/26/17 Aspirin Ec* (ASPIRIN EC*) 81 Mg Tablet.dr, 81 MG ORAL DAILY 07/26/17 Acetaminophen* (ACETAMINOPHEN 325MG TABLET*) 325 Mg Tablet, 650 MG ORAL Q6H Y for TEMP>100F. NTE 3GM/24HRS. 07/26/17 Acetaminophen* (ACETAMINOPHEN 325MG TABLET*) 325 Mg Tablet, 650 MG ORAL Q6H Y for FOR PAIN. NTE 3GM/24HRS. 07/26/17 Allergies: Coded Allergies: No Known Allergies (Unverified , 06/10/17) GI: Plan Plan The patient was seen and examined at bedside and all new and available data was reviewed in the patients chart. I agree with the above findings, impression and plan. (Patient seen earlier today. Signature stamp does not reflect patient encounter time.). - MD Kellen Menjivar,[facility] Anthony N.P. Aug 05, 2017 16:22 NICHOLE FRIED Aug 06, 2017 11:51
[2017-08-05 20:00] VITALS: BP 158/72
--- NOTE | 2017-08-05 21:47 | Diagnostic Imaging Report ---
Indication:Elevated Bun and Creatinine. Technique: Grayscale and duplex Doppler imaging of the kidneys performed. Comparison: None Findings: The size, contour, and echogenicity of both kidneys are within normal limits. Small cyst noted within the right kidney centrally measuring 1.3 cm. There is no hydronephrosis. Both kidneys measure between 10 and 11 cm. The IVC and urinary bladder are unremarkable. Clark catheter noted. IMPRESSION: No acute findings. Right renal cyst
[2017-08-05] MEDS: Epogen (for non ESRD use) SUBQ SCH (22:01)
[2017-08-06] VITALS (12 sets, daily range): BP systolic 128–184; BP diastolic 50–93
[2017-08-06] MEDS: NovoLOG Insulin Flexpen SUBQ SCH ×4 (01:01→17:58)
--- NOTE | 2017-08-06 06:58 | Anethesia Preoperative Eval ---
Anesthesia Pre-op PMH/ROS General Date of Evaluation: Aug 06, 2017 Time of Evaluation: 06:58 Anesthesiologist: rick ASA Score: ASA 4 Mallampati Score Class I : Soft palate, uvula, fauces, pillars visible Class II: Soft palate, uvula, fauces visible Class III: Soft palate, base of uvula visible Class IV: Only hard plate visible Mallampati Classification: Class II Surgeon: anurag Diagnosis: dysphagia Surgical Procedure: egd/peg Anesthesia History: none Social History: smoking - former smoker Family History: no anesthesia problems Allergies: Coded Allergies: No Known Allergies (Unverified , 06/10/17) Medications: see eMAR Past Medical History Cardiovascular: Reports: HTN Gastrointestinal/Genitourinary: Reports: GERD, ESRD, other - uti Neurologic/Psychiatric: Reports: dementia Endocrine: Reports: DM HEENT: Reports: cataract (L), cataract (R) Musculoskeletal/Integumentary: Reports: OA Anesthesia Pre-op Phys. Exam Physician Exam Last Vital Signs Date Time Temp Pulse Resp B/P (MAP) Pulse Ox O2 Delivery O2 Flow Rate FiO2 08/06/17 04:00 97.7 77 20 135/50 100 Room Air Constitutional: NAD Neurologic: CN 2-12 intact Cardiovascular: RRR Respiratory: CTA Gastrointestinal: S/NT/ND Airway Exam Mallampati Score: Class II MO: limited Neck: decreased rom to lateral rotation TMD: 1fb ROM: limited Teeth: missing, broken Anesthesia Pre-op A/P Labs Labs Test 08/03/17 07:40 08/05/17 05:45 White Blood Count 11.3 K/UL (4.8-10.8) 9.3 K/UL (4.8-10.8) Red Blood Count 4.03 M/UL (4.20-5.40) 3.83 M/UL (4.20-5.40) Hemoglobin 10.1 G/DL (12.0-16.0) 9.6 G/DL (12.0-16.0) Hematocrit 31.6 % (37.0-47.0) 30.7 % (37.0-47.0) Mean Corpuscular Volume 78 FL (80-99) 80 FL (80-99) Mean Corpuscular Hemoglobin 25.1 PG (27.0-31.0) 25.2 PG (27.0-31.0) Mean Corpuscular Hemoglobin Concent 32.0 G/DL (32.0-36.0) 31.4 G/DL (32.0-36.0) Red Cell Distribution Width 13.7 % (11.6-14.8) 14.9 % (11.6-14.8) Platelet Count 342 K/UL (150-450) 372 K/UL (150-450) Mean Platelet Volume 6.7 FL (6.5-10.1) 6.4 FL (6.5-10.1) Neutrophils (%) (Auto) 80.5 % (45.0-75.0) 74.7 % (45.0-75.0) Lymphocytes (%) (Auto) 10.1 % (20.0-45.0) 13.7 % (20.0-45.0) Monocytes (%) (Auto) 7.8 % (1.0-10.0) 8.7 % (1.0-10.0) Eosinophils (%) (Auto) 1.0 % (0.0-3.0) 2.3 % (0.0-3.0) Basophils (%) (Auto) 0.6 % (0.0-2.0) 0.6 % (0.0-2.0) Sodium Level 139 MMOL/L (136-145) 144 MMOL/L (136-145) Potassium Level 4.5 MMOL/L (3.5-5.1) 4.2 MMOL/L (3.5-5.1) Chloride Level 110 MMOL/L (98-107) 114 MMOL/L (98-107) Carbon Dioxide Level 20 MMOL/L (21-32) 19 MMOL/L (21-32) Anion Gap 9 mmol/L (5-15) 12 mmol/L (5-15) Blood Urea Nitrogen 40 mg/dL (7-18) 29 mg/dL (7-18) Creatinine 1.6 MG/DL (0.55-1.30) 1.4 MG/DL (0.55-1.30) Estimat Glomerular Filtration Rate mL/min (>60) mL/min (>60) Glucose Level 190 MG/DL (74-106) 189 MG/DL (74-106) Calcium Level 8.4 MG/DL (8.5-10.1) 8.6 MG/DL (8.5-10.1) Phosphorus Level 3.2 MG/DL (2.5-4.9) 2.5 MG/DL (2.5-4.9) Magnesium Level 2.4 MG/DL (1.8-2.4) 2.0 MG/DL (1.8-2.4) Total Bilirubin 0.4 MG/DL (0.2-1.0) 0.3 MG/DL (0.2-1.0) Aspartate Amino Transf (AST/SGOT) 23 U/L (15-37) 24 U/L (15-37) Alanine Aminotransferase (ALT/SGPT) 33 U/L (12-78) 35 U/L (12-78) Alkaline Phosphatase 86 U/L (46-116) 96 U/L (46-116) C-Reactive Protein, Quantitative 26.5 mg/dL (0.00-0.90) Total Protein 6.1 G/DL (6.4-8.2) 6.0 G/DL (6.4-8.2) Albumin 1.8 G/DL (3.4-5.0) 1.7 G/DL (3.4-5.0) Globulin 4.3 g/dL 4.3 g/dL Albumin/Globulin Ratio 0.4 (1.0-2.7) 0.4 (1.0-2.7) Prothrombin Time 10.0 SEC (9.30-11.50) Prothromb Time International Ratio 1.0 (0.9-1.1) Activated Partial Thromboplast Time 28 SEC (23-33) Studies Pre-op Studies: EKG - nsr, anterior infarct Risk Assessment & Plan Assessment: asa4 Plan: mac Status Change Before Surgery: No Pre-Antibiotics Drug: see ANT CAO Aug 06, 2017 06:58
[2017-08-06] MEDS ORDERED: NS 500ML IV ONE (07:10)
--- NOTE | 2017-08-06 07:13 | Pre-Procedure Note/Attestation ---
Pre-Procedure Note/Attestation Complete Prior to Procedure Planned Procedure: not applicable Procedure Narrative: egd/colonoscopy Indications for Procedure Pre-Operative Diagnosis: dysphagia Attestation I attest that I discussed the nature of the procedure; its benefits; risks and complications; and alternatives (and the risks and benefits of such alternatives ), prior to the procedure, with the patient (or the patient's legal customer sales representative). I attest that, if there was a reasonable possibility of needing a blood transfusion, the patient (or the patient's legal customer sales representative) was given the [facility] standardized written summary, pursuant to the Jair Linh Blood Safety Act ([place] Health and Safety Code # 1645, as amended). I attest that I re-evaluated the patient just prior to the surgery and that there has been no change in the patient's H&P, except as documented below: NICHOLE FRIED Aug 06, 2017 07:13
[2017-08-06] MEDS ORDERED: Atropine Inj 1mg/10ml Syr IV PRN (07:15)
[2017-08-06] MEDS ORDERED: Labetalol 5mg/ml 20ml vial IV PRN (07:15)
[2017-08-06] MEDS ORDERED: Midazolam 2mg/2ml Inj IVP PRN (07:15)
[2017-08-06] MEDS ORDERED: fentaNYL 100 mcg/2 mL IV PRN (07:15)
--- NOTE | 2017-08-06 07:37 | Endoscopy Procedure Note ---
Endoscopy Procedure Note Indication for Procedure: dysphagia Procedures Performed: EGD, PEG Operative Findings/Diagnosis: same Specimen: none Pt Tolerated Procedure Well: Yes Estimated Blood Loss: none Anesthesiologist: ambrosio Anesthesia: MAC Implant(s) used?: No 50 yrs or older w/o bx or poly: Not Applicable 10yrs. F/U not recommended: Not Applicable NICHOLE FRIED Aug 06, 2017 07:37
[2017-08-06 07:58] LABS: BASOPHILS % (AUTO) 0.8 % (0.0-2.0); EOSINOPHILS % (AUTO) 1.7 % (0.0-3.0); HEMATOCRIT 31.5 % (37.0-47.0); LYMPHOCYTES % (AUTO) 10.7 % (20.0-45.0); MEAN CORPUSCULAR VOLUME 80 FL (80-99); MONOCYTES % (AUTO) 8.1 % (1.0-10.0); NEUTROPHILS % (AUTO) 78.7 % (45.0-75.0); PLATELET COUNT 331 K/UL (150-450); RED BLOOD COUNT 3.94 M/UL (4.20-5.40); RED CELL DISTRIBUTION WIDTH 15.1 % (11.6-14.8); WHITE BLOOD COUNT 9.2 K/UL (4.8-10.8)
[2017-08-06] MEDS ORDERED: cefOXitin Sod 1 GM in D5W 55 ML IV ONE (08:00)
[2017-08-06 08:02] LABS: ANION GAP 10 mmol/L (5-15); BLOOD UREA NITROGEN 28 mg/dL (7-18); CALCIUM 8.5 MG/DL (8.5-10.1); CARBON DIOXIDE 18 MMOL/L (21-32); CHLORIDE 116 MMOL/L (98-107); CREATININE 1.3 MG/DL (0.55-1.30); POTASSIUM 4.3 MMOL/L (3.5-5.1); SODIUM 144 MMOL/L (136-145)
[2017-08-06] MEDS ORDERED: Lidocaine 1% MPF 10mg/ml 5ml ONE (09:00)
[2017-08-06] MEDS ORDERED: NS 110ml ONE (09:00)
[2017-08-06] MEDS ORDERED: Propofol 200mg/20ml IV ONE (09:00)
[2017-08-06] MEDS ORDERED: Aspirin Baby 81mg NG SCH (09:45)
[2017-08-06] MEDS: Heparin 5000 units/ml inj SUBQ SCH ×2 (10:10→20:56)
--- NOTE | 2017-08-06 11:07 | Immediate Post-Op Evaluation ---
Immediate Post-Op Evalulation Immediate Post-Op Evalulation Procedure: egd/peg Date of Evaluation: Aug 06, 2017 Time of Evaluation: 07:58 IV Fluids: 150ml 0.9ns Blood Products: none Estimated Blood Loss: negligible Blood Pressure Systolic: 178 Blood Pressure Diastolic: 93 Pulse Rate: 75 Respiratory Rate: 18 O2 Sat by Pulse Oximetry: 100 Temperature (Fahrenheit): 97.9 Pain Score (1-10): 0 Nausea: No Vomiting: No Complications none Patient Status: awake, reacts, patent Hydration Status: adequate Drug: see ANT CAO Aug 06, 2017 11:07
--- NOTE | 2017-08-06 11:09 | 48 Hour Post Anesthesia Eval ---
Post Anesthesia Evaluation Procedure: egd/peg Date of Evaluation: Aug 06, 2017 Time of Evaluation: 08:00 Blood Pressure Systolic: 181 0: 88 Pulse Rate: 77 Respiratory Rate: 18 Temperature (Fahrenheit): 97.9 O2 Sat by Pulse Oximetry: 100 Airway: patent Nausea: No Vomiting: No Pain Intensity: 0 Hydration Status: adequate Cardiopulmonary Status: stable Mental Status/LOC: patient returned to baseline Post-Anesthesia Complications: none Follow-up care needed: N/A ANT ELAINE Aug 06, 2017 11:09
--- NOTE | 2017-08-06 11:26 | General Progress Note ---
Assessment/Plan Problem List: (1) Renal failure (ARF), acute on chronic ICD Codes: N17.9 - Acute kidney failure, unspecified; N18.9 - Chronic kidney disease, unspecified SNOMED: 592831184 (2) Hyperkalemia ICD Codes: E87.5 - Hyperkalemia SNOMED: 84400210 (3) UTI (urinary tract infection) ICD Codes: N39.0 - Urinary tract infection, site not specified SNOMED: 02065638 (4) Sepsis ICD Codes: A41.9 - Sepsis, unspecified organism SNOMED: 21056364 (5) Diabetes mellitus (6) Anemia ICD Codes: D64.9 - Anemia SNOMED: 674679570 Qualifiers: Qualified Codes: N18.3 - Chronic kidney disease, stage 3 (moderate); D63.1 - Anemia in chronic kidney disease (7) Functional quadriplegia ICD Codes: R53.2 - Functional quadriplegia SNOMED: 787494884447067 Status: stable Status Narrative POST PEG Assessment/Plan Off antibiotics- adjust BP meds start GT feeding DC urinary tract infection, possible sepsis, acute renal failure, chronic renal insufficiency, diabetes mellitus, out of control, anemia urinary outlet obstruction. Dementia functional Quadriplegia Ritalin for psychomotor retardation FTT Plan: PEG , discussed with Family- agreeable- Dr Monae notified Antibiotics transfusion monitor renal parameters per orders Kidney SHAWN Per ID advise discuss PEG Subjective ROS Limited/Unobtainable: No Constitutional: Reports: malaise Allergies: Coded Allergies: No Known Allergies (Unverified , 06/10/17) Objective Last 24 Hour Vital Signs Date Time Temp Pulse Resp B/P (MAP) Pulse Ox O2 Delivery O2 Flow Rate FiO2 08/06/17 11:09 77 18 100 08/06/17 11:07 75 18 100 08/06/17 09:45 97.7 78 18 137/78 99 Room Air 08/06/17 08:30 98.0 82 16 173/84 100 Nasal Cannula 3.0 08/06/17 08:15 78 16 184/91 100 Nasal Cannula 3.0 08/06/17 08:14 184/91 08/06/17 08:05 78 18 181/88 100 Nasal Cannula 3.0 08/06/17 08:00 87 08/06/17 07:55 77 19 181/88 100 Simple Mask 6.0 08/06/17 07:50 75 15 176/87 100 Simple Mask 6.0 08/06/17 07:46 97.9 73 18 178/93 100 Simple Mask 6.0 08/06/17 04:00 97.7 77 20 135/50 100 Room Air 08/06/17 04:00 75 08/06/17 00:00 97.7 75 22 162/76 100 Room Air 08/06/17 00:00 74 08/05/17 20:00 99.0 79 18 158/72 100 Room Air 08/05/17 20:00 69 08/05/17 16:00 76 08/05/17 16:00 98.1 79 18 147/80 98 Room Air 08/05/17 12:00 97.0 71 20 147/71 96 Room Air 08/05/17 12:00 67 Intake and Output 08/05/17 08/06/17 19:00 07:00 Output Total 400 ml 350 ml Balance -400 ml -350 ml Output Urine Total 400 ml 350 ml Laboratory Tests 08/06/17 07:00: White Blood Count 9.2, Red Blood Count 3.94L, Hemoglobin 10.0L, Hematocrit 31.5L , Mean Corpuscular Volume 80, Mean Corpuscular Hemoglobin 25.4L, Mean Corpuscular Hemoglobin Concent 31.8L, Red Cell Distribution Width 15.1H, Platelet Count 331, Mean Platelet Volume 6.4L, Neutrophils (%) (Auto) 78.7H, Lymphocytes (%) (Auto) 10.7L, Monocytes (%) (Auto) 8.1, Eosinophils (%) (Auto) 1.7, Basophils (%) (Auto) 0.8, Prothrombin Time 10.7, Prothromb Time International Ratio 1.0, Activated Partial Thromboplast Time 29, Sodium Level 144, Potassium Level 4.3, Chloride Level 116H, Carbon Dioxide Level 18L, Anion Gap 10, Blood Urea Nitrogen 28H, Creatinine 1.3, Estimat Glomerular Filtration Rate , Glucose Level 189H, Calcium Level 8.5 Height (Feet): 5 Height (Inches): 5.00 Weight (Pounds): 180 General Appearance: no apparent distress Cardiovascular: normal rate Respiratory/Chest: lungs clear Abdomen: other - has PEG now Objective no other changes FOULADIAN,ADINA Aug 06, 2017 11:26
[2017-08-06] MEDS ORDERED: METHYLPHENIDATE5 MG ORAL (12:45)
[2017-08-06] MEDS ORDERED: COLACE100 MG/10 GT (12:45)
[2017-08-06] MEDS: HydrALAZINE 25mg tab GT SCH ×2 (12:45→18:00)
[2017-08-06] MEDS ORDERED: GLIPIZIDE5 MG GT (12:45)
[2017-08-06] MEDS ORDERED: HYDRALAZINE HCL25 M1 GT (12:45)
[2017-08-06] MEDS ORDERED: ASPIRIN81 MG GT (12:45)
[2017-08-06] MEDS ORDERED: FAMOTIDINE20 MG GT (12:45)
--- NOTE | 2017-08-06 12:46 | Discharge Instructions ---
Discharge Instructions Discharge Instructions Follow up with: my self at [facility] Diet: other - GT feeding Glucerna 30 cc hour Special Instructions routine skin care- GT site care- Aspiration precautions- For Congestive Heart Failure Reminder Report to your physician any weight gain of 5 pounds or more in one week. ADINA GUARDADO Aug 06, 2017 12:46
[2017-08-06] MEDS: Docusate 100mg/10ml Liq GT SCH ×2 (12:48→17:58)
[2017-08-06] MEDS ORDERED: Docusate 100mg/10ml Liq NG SCH (13:00)
--- NOTE | 2017-08-06 14:52 | Infectious Diseases Prog Note ---
Assessment/Plan Problems: (1) UTI (urinary tract infection) Assessment & Plan: with H/O MDR E.coli , urine culture grew less than 10 000 strep spp, most likely contaminant , monitor off antibiotics (2) Sepsis Assessment & Plan: ruled out with negative blood culture, monitor off cefepime (3) Renal failure Assessment & Plan: improving , suspect due to the above, continue hydration, renal is following , avoid nephrotoxic meds (4) Diabetes mellitus Assessment & Plan: recommend tight glycemic control to keep blood glucose between 100-140 Subjective ROS Limited/Unobtainable: Yes Allergies: Coded Allergies: No Known Allergies (Unverified , 06/10/17) Subjective she was lying in bed, awake and alert, responds to verbal commands , a febrile, not in distress, interactive Objective Vital Signs Last 24 Hour Vital Signs Date Time Temp Pulse Resp B/P (MAP) Pulse Ox O2 Delivery O2 Flow Rate FiO2 08/06/17 12:45 181/88 08/06/17 12:00 82 08/06/17 12:00 98.3 68 18 128/79 99 Room Air 08/06/17 11:09 77 18 100 08/06/17 11:07 75 18 100 08/06/17 09:45 97.7 78 18 137/78 99 Room Air 08/06/17 08:30 98.0 82 16 173/84 100 Nasal Cannula 3.0 08/06/17 08:15 78 16 184/91 100 Nasal Cannula 3.0 08/06/17 08:14 184/91 08/06/17 08:05 78 18 181/88 100 Nasal Cannula 3.0 08/06/17 08:00 87 08/06/17 07:55 77 19 181/88 100 Simple Mask 6.0 08/06/17 07:50 75 15 176/87 100 Simple Mask 6.0 08/06/17 07:46 97.9 73 18 178/93 100 Simple Mask 6.0 08/06/17 04:00 97.7 77 20 135/50 100 Room Air 08/06/17 04:00 75 08/06/17 00:00 97.7 75 22 162/76 100 Room Air 08/06/17 00:00 74 08/05/17 20:00 99.0 79 18 158/72 100 Room Air 08/05/17 20:00 69 08/05/17 16:00 76 08/05/17 16:00 98.1 79 18 147/80 98 Room Air Height (Feet): 5 Height (Inches): 5.00 Weight (Pounds): 180 General Appearance: WD/WN, no acute distress, cachetic HEENT: normocephalic, atraumatic, anicteric, mucous membranes moist, EOMI, pharynx normal, supple, no JVD Respiratory/Chest: chest wall non-tender, lungs clear, normal breath sounds, no respiratory distress, no accessory muscle use Cardiovascular: normal peripheral pulses, normal rate, regular rhythm, no gallop/murmur, no JVD Abdomen: normal bowel sounds, soft, non tender, no organomegaly, non distended , no mass, no scars Extremities: no cyanosis, no clubbing Skin: no rash, no lesions, no ulcers 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1 % (1.0-10.0) Eosinophils (%) (Auto) 1.7 % (0.0-3.0) Basophils (%) (Auto) 0.8 % (0.0-2.0) Prothrombin Time 10.7 SEC (9.30-11.50) Prothromb Time International Ratio 1.0 (0.9-1.1) Activated Partial Thromboplast Time 29 SEC (23-33) Sodium Level 144 MMOL/L (136-145) Potassium Level 4.3 MMOL/L (3.5-5.1) Chloride Level 116 MMOL/L (98-107) H Carbon Dioxide Level 18 MMOL/L (21-32) L Anion Gap 10 mmol/L (5-15) Blood Urea Nitrogen 28 mg/dL (7-18) H Creatinine 1.3 MG/DL (0.55-1.30) Estimat Glomerular Filtration Rate mL/min (>60) Glucose Level 189 MG/DL (74-106) H Calcium Level 8.5 MG/DL (8.5-10.1) Current Medications Medications (Trade) Dose Ordered Sig/Nancy Route PRN Reason Start Time Stop Time Status Last Admin Dose Admin Acetaminophen (Tylenol) 650 mg Q6H PRN ORAL FOR PAIN. NTE 3GM/24HRS. 08/01/17 00:15 08/31/17 00:14 Aspirin (ASA) 81 mg DAILY GT 08/07/17 09:00 09/06/17 08:59 Dextrose (Dextrose 50%) STAT PRN IV Hypoglycemia 08/01/17 12:00 08/31/17 11:59 Docusate Sodium (Colace) 100 mg THREE TIMES A DAY GT 08/06/17 13:00 09/05/17 12:59 08/06/17 12:48 Epoetin Oziel (Procrit (for non ESRD use)) 10,000 units SAT-SAT-SAT SUBQ 08/02/17 21:00 09/01/17 20:59 08/05/17 22:01 Famotidine (Pepcid) 20 mg BID GT 08/06/17 18:00 09/05/17 17:59 Glipizide (Glucotrol) 5 mg ACBREAKFAST GT 08/07/17 06:30 09/06/17 06:29 Heparin Sodium (Porcine) (Heparin 5000 units/ml) 5,000 units EVERY 12 HOURS SUBQ 08/01/17 09:00 08/31/17 08:59 08/06/17 10:10 Hydralazine HCl (Apresoline) 25 mg Q6HR GT 08/06/17 12:00 09/05/17 11:59 08/06/17 12:45 Insulin Aspart (NovoLOG) Q6HR SUBQ 08/01/17 12:30 08/31/17 12:29 08/06/17 12:46 Methylphenidate HCl (Ritalin) 10 mg DAILY ORAL 08/07/17 09:00 08/14/17 08:59 Abdiel Payan M.D. Aug 06, 2017 14:52
[2017-08-06] MEDS ORDERED: NS 500ML ONE (22:14)
[2017-08-07] MEDS ORDERED: GlipiZIDE 5mg tab GT SCH (06:30)
[2017-08-07] MEDS ORDERED: Aspirin Baby 81mg GT SCH (09:00)
--- NOTE | 2017-08-07 09:42 | Procedure Note ---
DATE OF PROCEDURE: 08/06/2017 SURGEON: Bhupendra Kirkpatrick M.D. PROCEDURE: Upper endoscopy with PEG placement. ANESTHESIOLOGIST: Nataliia Elaine M.D. INSTRUMENT: Olympus adult flexible upper endoscope. INDICATION: Dysphagia and failure to thrive. REASON FOR PROCEDURE: The procedure, risks, benefits, and possible consequences, including hemorrhage, aspiration, perforation and infection, and alternative treatments, were explained to the patient/legal guardian by Dr. Bhupendra Kirkpatrick and the patient/legal guardian understood and accepted these risks. PROCEDURE: After informed consent was obtained and the patient was adequately sedated, Olympus upper endoscope was advanced from mouth into the second portion of the duodenum and retroflexion was performed in the stomach. The patient had evidence of diffuse atrophic gastritis. Then, under endoscopic guidance, under sterile condition, a 20-Occitan pull type of G-tube was successfully placed in the left upper quadrant of the abdomen. SUMMARY FINDINGS: Status post successful PEG placement. RECOMMENDATIONS: 1. Abdominal binder. 2. Elevate the head of the bed at all times. 3. G-tube flush. 4. G-tube care. 5. Start tube feeding later today. 6. The patient is currently on antibiotics. So, no antibiotics were added. I want to thank Dr. Ortiz, for this kind referral. Bhupendra Kirkpatrick M.D. DR: BINDU JOB#: [id number] CC: Mohsen Ortiz M.D.
--- NOTE | 2017-08-09 11:40 | Discharge Summary ---
Discharge Summary Hospital Course Date of Admission Jul 31, 2017 at 18:55 Date of Discharge Aug 06, 2017 at 22:15 Admitting Diagnosis DEHYDRATION,UTI HPI Tanya Padilla is a 77 year old female who was admitted on Jul 31, 2017 at 18:55 for Dehydration, Urinary Tract Infection Hospital Course [id number] Discharge Discharge Disposition Patient was discharged to SNF/Subacute Facility(03) Discharge Diagnoses: Discharge Instructions Discharge Instructions Follow up with: my self at [facility] Rachelle Gray NP Aug 09, 2017 11:40
--- NOTE | 2017-08-10 00:15 | Discharge Summary 2 SIG ---
DATE OF ADMISSION: 07/31/2017 DATE OF DISCHARGE: 08/06/2017 CONSULTANTS: 1. Bhupendra Kirkpatrick M.D. 2. Abdiel Payan M.D. BRIEF HOSPITAL COURSE: The patient is a 77-year-old female, who resides at [facility], was transferred to [place] emergency room for urinary retention and weakness. She has medical history significant for peripheral vascular disease, anemia, hypertension, diabetes, dementia, bradycardia, and myocardial infarction. She has history of previous urinary tract infection with multidrug resistant E. coli. On evaluation at ED, workup showed hyperkalemia, potassium was 5.6. Creatinine was elevated to 2.1 and BUN 57. She had leukocytosis, WBC of 13. Hemoglobin was 8.3 and hematocrit 28. Urinalysis showed 5 to 10 WBC and 2 to 4 RBC with +1 leukocyte esterase. She had had low urine output and was admitted for urinary tract infection with possible sepsis, acute renal failure, anemia, diabetes mellitus, and chronic renal insufficiency with urinary outlet obstruction. She was started on IV hydration and was started empirically on cefepime. Blood sugars were monitored and was placed on Glucotrol and insulin sliding scale. Hemoglobin A1c was 9.4. Urine culture showed growth less than 10,000 Strep species, most likely contaminant. Cefepime was discontinued. She had poor p.o. intake. Swallow evaluation was done. Dr. Kirkpatrick was consulted and on 08/06/2017, she underwent upper endoscopy with percutaneous endoscopic gastrostomy tube placement. She had evidence of diffuse atrophic gastritis. Tube feeding was eventually started. Urine function improved. Renal ultrasound showed no acute findings. She received a total of two units packed RBC blood transfusion during inpatient stay. Post transfusion, hemoglobin was stable. She was eventually discharged back to [facility]. FINAL DIAGNOSES: 1. Acute on chronic renal failure. 2. Hyperkalemia. 3. Urinary tract infection. 4. Possible sepsis. 5. Diabetes mellitus, out of control. 6. Acute anemia requiring blood transfusion. 7. Anemia of chronic kidney disease. 8. Functional quadriplegia. 9. Status post percutaneous endoscopic gastrostomy tube placement 08/06/17. 10. Psychomotor retardation. 11. Dementia. 12. Failure to thrive. DISPOSITION: The patient was discharged to [facility]. DISCHARGE MEDICATIONS: Refer to medication list. DISCHARGE INSTRUCTIONS: Advised to keep head of bed elevated at all times and to apply abdominal binder, G-tube site care. Mohsen Ortiz M.D. I have been assigned to dictate discharge summary on this account and I was not involved in the patient's management. Rachelle Gray N.P. DR: CLAUDETTE JOB#: [id number] CC: ROSE
--- NOTE | 2017-08-10 16:19 | Cardiology Report ---
APPROVED REPORT EKG Measurement Heart [id number] Normal sinus rhythm Possible Anterior infarct, age undetermined Abnormal ECG
== END 2017-08-06 22:15 | DRG 871 ==
LOC: EDBD 16:04 → EMR 16:33 → EDBEDREQ 18:07 → 2E 18:55 → EDBEDREQSVC 21:03 → EDBEDREQ 21:03
PROC: 0DH68UZ Insertion of Feeding Device into Stomach, Via Natural or Artificial Opening Endoscopic (ICD-10-PCS; principal; 2017-08-06 07:27)
DX: A41.9 Sepsis, unspecified organism (principal); R53.2 Functional quadriplegia; N17.9 Acute kidney failure, unspecified; E11.22 Type 2 diabetes mellitus with diabetic chronic kidney disease; F03.90 Unspecified dementia, unspecified severity, without behavioral disturbance, psychotic disturbance, mood disturbance, and anxiety; N39.0 Urinary tract infection, site not specified; N13.8 Other obstructive and reflux uropathy; E11.51 Type 2 diabetes mellitus with diabetic peripheral angiopathy without gangrene; E11.65 Type 2 diabetes mellitus with hyperglycemia; R00.1 Bradycardia, unspecified; E87.5 Hyperkalemia; E86.0 Dehydration; N18.9 Chronic kidney disease, unspecified; I12.9 Hypertensive chronic kidney disease with stage 1 through stage 4 chronic kidney disease, or unspecified chronic kidney disease; B96.20 Unspecified Escherichia coli [E. coli] as the cause of diseases classified elsewhere; I25.2 Old myocardial infarction; N13.9 Obstructive and reflux uropathy, unspecified; K29.40 Chronic atrophic gastritis without bleeding; I73.9 Peripheral vascular disease, unspecified; K21.9 Gastro-esophageal reflux disease without esophagitis; Z16.24 Resistance to multiple antibiotics; D63.1 Anemia in chronic kidney disease; R62.7 Adult failure to thrive
CPT/HCPCS: 36415; 71045; 76775; 80048; 80053; 80061; 81003; 82550; 82607; 82728; 82746; 82962; 83036; 83540; 83550; 83735; 83880; 84100; 84484; 84550; 85007; 85025; 85610; 85730; 86140; 86850; 86900; 86901; 86920; 87040; 87081; 87086; 93005; 94003; 94150; 99285; J1815